=== PATIENT | female | born 1935 | race American Indian/Alaskan Native ===

== ENCOUNTER 2018-05-27 21:34 | Inpatient (IN) | payer MEDICARE ==
[2018-05-27 23:08] LABS: Basophils % (Auto) 0.5 % (0.0-1.8); Eosinophils # (Auto) 0.1 K/mm3 (0.0-0.4); Eosinophils % (Auto) 1.4 % (0.0-4.3); Hematocrit 35.5 % (30.3-42.9); Hemoglobin 12.2 gm/dl (10.1-14.3); Lymphocytes # (Auto) 2.8 K/mm3 (1.2-5.4); Lymphocytes % (Auto) 42.1 % (13.4-35.0); Mean Corpuscular HGB Conc 34 % (30-34); Mean Corpuscular Volume 94 fl (79-97); Monocytes # (Auto) 0.5 K/mm3 (0.0-0.8); Monocytes % (Auto) 7.2 % (0.0-7.3); Platelet Count 281 K/mm3 (140-440); Red Blood Count 3.78 M/mm3 (3.65-5.03); Red Cell Distribution Width 13.3 % (13.2-15.2)
--- NOTE | 2018-05-27 23:15 | Emergency Department Report ---
ED Altered Mental Status HPI - General Chief Complaint: Syncope Stated Complaint: SYNCOPE Time Seen by Provider: 05/27/18 22:06 Source: EMS Mode of arrival: Stretcher Limitations: No Limitations - History of Present Illness Initial Comments: 82-year-old female with history of diabetes, prior CVA with right-sided deficit and presents to ED with episode of altered mental status. Daughter told her son to get patient up out of the room so that she could eat dinner. Patient was found in her room lying on the floor by her grandson, unsure if she fell out of bed. Family states when they were attempting to help her get up, patient was combative, fighting with them, acting as if she didn't know who they were. Because patient was so combative, EMS was called. Prior to EMS arrival, they were able to get patient to eat a small amount of yams and fish stew. Patient returned to normal prior to EMS arrival. Family states this episode lasted for approximately 30 minutes. Patient is currently at her baseline, awake and alert and oriented. States she does not remember what happened. PCP: Dr Carolyn RICO Complaint: altered mental status, confusion -: This evening Severity: moderate Context: unknown Associated Symptoms: loss of appetite. denies: chest pain, cough, fever/chills, nausea/vomiting, shortness of breath - Related Data Home Medications Medication Instructions Recorded Confirmed Last Taken Clopidogrel Bisulfate [Plavix] 75 mg PO DAILY 06/28/13 05/27/18 05/27/18 09:00 Atenolol [Tenormin] 50 mg PO BID 05/27/18 05/27/18 05/27/18 20:00 Escitalopram 10 mg PO DAILY 05/27/18 05/27/18 05/27/18 09:00 Glimepiride [Amaryl] 4 mg PO DAILY 05/27/18 05/27/18 05/27/18 20:00 LORazepam 0.5 mg PO DAILY 05/27/18 05/27/18 05/27/18 21:00 NIFEdipine [Nifedipine ER] 60 mg PO DAILY 05/27/18 05/27/18 05/27/18 09:00 Previous Rx's Medication Instructions Recorded Last Taken Type Megestrol [Megace] 40 mg PO QDAY #30 tablet 07/01/13 05/27/18 20:00 Rx Simvastatin 20 mg PO QHS #30 tablet 07/01/13 05/27/18 20:00 Rx cycloSPORINE [Restasis 0.05%] 1 drop OU BID #1 droperette 07/01/13 05/26/18 21:00 Rx metFORMIN [Glucophage] 1,000 mg PO BID #60 tablet 07/01/13 05/27/18 20:00 Rx Allergies Allergy/AdvReac Type Severity Reaction Status Date / Time No Known Allergies Allergy Unverified 03/02/13 18:32 ED Review of Systems ROS: Stated complaint: SYNCOPE Other details as noted in HPI Comment: All other systems reviewed and negative Constitutional: denies: chills, fever Respiratory: denies: cough, shortness of breath Cardiovascular: denies: chest pain Gastrointestinal: denies: abdominal pain, vomiting, diarrhea Neurological: denies: headache ED Past Medical Hx - Past Medical History Previous Medical History?: Yes Hx Hypertension: Yes Hx CVA: Yes Hx Diabetes: Yes Additional medical history: HLD - Surgical History Hx Appendectomy: Yes Additional Surgical History: ectopic - Social History Smoking Status: Never Smoker Substance Use Type: None - Medications Home Medications: Home Medications Medication Instructions Recorded Confirmed Last Taken Type Clopidogrel Bisulfate [Plavix] 75 mg PO DAILY 06/28/13 05/27/18 05/27/18 09:00 History Megestrol [Megace] 40 mg PO QDAY #30 tablet 07/01/13 05/27/18 05/27/18 20:00 Rx Simvastatin 20 mg PO QHS #30 tablet 07/01/13 05/27/18 05/27/18 20:00 Rx cycloSPORINE [Restasis 0.05%] 1 drop OU BID #1 droperette 07/01/13 05/27/18 05/26/18 21:00 Rx metFORMIN [Glucophage] 1,000 mg PO BID #60 tablet 07/01/13 05/27/18 05/27/18 20:00 Rx Atenolol [Tenormin] 50 mg PO BID 05/27/18 05/27/18 05/27/18 20:00 History Escitalopram 10 mg PO DAILY 05/27/18 05/27/18 05/27/18 09:00 History Glimepiride [Amaryl] 4 mg PO DAILY 05/27/18 05/27/18 05/27/18 20:00 History LORazepam 0.5 mg PO DAILY 05/27/18 05/27/18 05/27/18 21:00 History NIFEdipine [Nifedipine ER] 60 mg PO DAILY 05/27/18 05/27/18 05/27/18 09:00 Histo ry ED Physical Exam - General Limitations: No Limitations General appearance: alert, in no apparent distress - Head Head exam: Present: atraumatic, normocephalic - Eye Eye exam: Present: normal appearance - ENT ENT exam: Present: mucous membranes moist - Neck Neck exam: Present: normal inspection - Respiratory Respiratory exam: Present: normal lung sounds bilaterally. Absent: respiratory distress - Cardiovascular Cardiovascular Exam: Present: regular rate, normal rhythm - GI/Abdominal GI/Abdominal exam: Present: soft. Absent: distended, tenderness - Extremities Exam Extremities exam: Present: normal inspection - Neurological Exam Neurological exam: Present: alert, oriented X3 - Psychiatric Psychiatric exam: Present: normal affect, normal mood - Skin Skin exam: Present: warm, dry, intact, normal color. Absent: rash - Assessment Assessment Interval: Baseline - Level of Consciousness 1a. Level of Consciousness: alert/keenly responsive - LOC Questions 1b. LOC Questions: answers both correctly - LOC Command 1c. LOC Commands: performs tasks correctly - Best Gaze 2. Best Gaze: normal - Visual 3. Visual: no visual loss - Facial Palsy 4. Facial Palsy: normal symmetrical movement - Motor Arm 5b. Motor Arm Right: drift 5a. Motor Arm Left: no drift - Motor Leg 6b. Motor Leg Right: drift 6a. Motor Leg Left: no drift - Limb Ataxia 7. Limb Ataxia: absent - Sensory 8. Sensory: normal - Best Language 9. Best Language: no aphasia - Dysarthria 10. Dysarthria: normal - Extinction and Inattention 11. Extinction/Inattention: no abnormality - Scoring Total Score: 2 Stroke Severity: Minor Stroke ED Course Vital Signs 05/27/18 05/27/18 05/27/18 21:42 23:11 23:16 Temperature 98 F Pulse Rate 75 77 72 Respiratory 20 18 Rate Blood Pressure 151/72 Blood Pressure 151/72 [Left] O2 Sat by Pulse 97 99 Oximetry 05/27/18 05/27/18 05/27/18 23:21 23:30 23:45 Temperature Pulse Rate 73 71 71 Respiratory 19 21 21 Rate Blood Pressure 150/77 152/75 Blood Pressure 154/82 [Left] O2 Sat by Pulse 99 97 98 Oximetry 05/28/18 05/28/18 05/28/18 00:00 00:15 00:30 Temperature Pulse Rate 74 75 74 Respiratory 20 21 15 Rate Blood Pressure 138/64 146/70 150/74 Blood Pressure [Left] O2 Sat by Pulse 96 98 99 Oximetry - Lab Data Result diagrams: 05/27/18 22:54 05/27/18 22:54 Lab Results 05/27/18 05/27/18 05/27/18 Range/Units 22:54 22:54 22:54 WBC 6.8 (4.5-11.0) K/mm3 RBC 3.78 (3.65-5.03) M/mm3 Hgb 12.2 (10.1-14.3) gm/dl Hct 35.5 (30.3-42.9) % MCV 94 (79-97) fl MCH 32 (28-32) pg MCHC 34 (30-34) % RDW 13.3 (13.2-15.2) % Plt Count 281 (140-440) K/mm3 Lymph % (Auto) 42.1 H (13.4-35.0) % [place] % (Auto) 7.2 (0.0-7.3) % Eos % (Auto) 1.4 (0.0-4.3) % Baso % (Auto) 0.5 (0.0-1.8) % Lymph # 2.8 (1.2-5.4) K/mm3 [place] # 0.5 (0.0-0.8) K/mm3 Eos # 0.1 (0.0-0.4) K/mm3 Baso # 0.0 (0.0-0.1) K/mm3 Seg Neutrophils % 48.8 (40.0-70.0) % Seg Neutrophils # 3.3 (1.8-7.7) K/mm3 PT 12.7 (12.2-14.9) Sec. INR 0.90 (0.87-1.13) APTT 20.0 L (24.2-36.6) Sec. Sodium (137-145) mmol/L Potassium (3.6-5.0) mmol/L Chloride (98-107) mmol/L Carbon Dioxide (22-30) mmol/L Anion Gap mmol/L BUN (7-17) mg/dL Creatinine (0.7-1.2) mg/dL Estimated GFR ml/min BUN/Creatinine Ratio % Glucose (65-100) mg/dL Calcium (8.4-10.2) mg/dL Troponin T < 0.010 (0.00-0.029) ng/mL Urine Color (Yellow) Urine Turbidity (Clear) Urine pH (5.0-7.0) Ur Specific [place] (1.003-1.030) Urine Protein (Negative) mg/dL Urine Glucose (UA) (Negative) mg/dL Urine Ketones (Negative) mg/dL Urine Blood (Negative) Urine Nitrite (Negative) Urine Bilirubin (Negative) Urine Urobilinogen (<2.0) mg/dL Ur Leukocyte Esterase (Negative) Urine WBC (Auto) (0.0-6.0) /HPF Urine RBC (Auto) (0.0-6.0) /HPF U Epithel Cells (Auto) (0-13.0) /HPF Urine Mucus /HPF 05/27/18 05/28/18 Range/Units 22:54 00:24 WBC (4.5-11.0) K/mm3 RBC (3.65-5.03) M/mm3 Hgb (10.1-14.3) gm/dl Hct (30.3-42.9) % MCV (79-97) fl MCH (28-32) pg MCHC (30-34) % RDW (13.2-15.2) % Plt Count (140-440) K/mm3 Lymph % (Auto) (13.4-35.0) % [place] % (Auto) (0.0-7.3) % Eos % (Auto) (0.0-4.3) % Baso % (Auto) (0.0-1.8) % Lymph # (1.2-5.4) K/mm3 [place] # (0.0-0.8) K/mm3 Eos # (0.0-0.4) K/mm3 Baso # (0.0-0.1) K/mm3 Seg Neutrophils % (40.0-70.0) % Seg Neutrophils # (1.8-7.7) K/mm3 PT (12.2-14.9) Sec. INR (0.87-1.13) APTT (24.2-36.6) Sec. Sodium 140 (137-145) mmol/L Potassium 3.7 (3.6-5.0) mmol/L Chloride 104.9 (98-107) mmol/L Carbon Dioxide 22 (22-30) mmol/L Anion Gap 17 mmol/L BUN 12 (7-17) mg/dL Creatinine 0.8 (0.7-1.2) mg/dL Estimated GFR > 60 ml/min BUN/Creatinine Ratio 15 % Glucose 250 H (65-100) mg/dL Calcium 8.6 (8.4-10.2) mg/dL Troponin T (0.00-0.029) ng/mL Urine Color Yellow (Yellow) Urine Turbidity Clear (Clear) Urine pH 5.0 (5.0-7.0) Ur Specific [place] 1.015 (1.003-1.030) Urine Protein 30 mg/dl (Negative) mg/dL Urine Glucose (UA) 150 (Negative) mg/dL Urine Ketones Neg (Negative) mg/dL Urine Blood Neg (Negative) Urine Nitrite Neg (Negative) Urine Bilirubin Neg (Negative) Urine Urobilinogen 2.0 (<2.0) mg/dL Ur Leukocyte Esterase Mod (Negative) Urine WBC (Auto) 1.0 (0.0-6.0) /HPF Urine RBC (Auto) 3.0 (0.0-6.0) /HPF U Epithel Cells (Auto) 4.0 (0-13.0) /HPF Urine Mucus Few /HPF - EKG Data -: EKG Interpreted by Sd EKG shows normal: sinus rhythm, axis, intervals, QRS complexes, ST-T waves Rate: normal Interpretation: no acute changes - Radiology Data Radiology results: report reviewed, image reviewed - Medical Decision Making 82-year-old female presents following brief episode of altered mental status. Hypoglycemia vs TIA. No documented low blood sugar, however, per family, patient's symptoms seemed to improve after they gave her yams and fish stew. Workup unremarkable, CT Head, CXR, EKG, labs normal. Will admit for observation. Spoke w/ Dr Al, hospitalist, for admission. - Differential Diagnosis hypoglycemia, TIA, infection Critical care attestation.: If time is entered above; I have spent that time in minutes in the direct care of this critically ill patient, excluding procedure time. ED Disposition Clinical Impression: Altered mental status Disposition: DC-09 OP ADMIT IP TO THIS HOSP Is pt being admited?: Yes Condition: Stable Referrals: LINDA ROSS MD [Referring] - 3-5 Days Time of Disposition: 01:31
--- NOTE | 2018-05-27 23:18 | XRay Report ---
PROCEDURE: PORTABLE CHEST TECHNIQUE: A portable AP chest radiograph was obtained at 05/27/2018 21:37 [employer]. CPT 50494 HISTORY: Chest pain COMPARISONS: None. FINDINGS: Heart: The heart is borderline enlarged. Mediastinum/Vessels: Normal. Lungs/Pleural space: There is suboptimal inspiration. There are no infiltrates. There is no pulmonar y effusion or contusion or pneumothorax.. Bony thorax: No acute osseous abnormality. Life support devices: None. IMPRESSION: No acute cardiopulmonary abnormality. This document is electronically signed by Familia Hermosillo MD., May 27 2018 11:15:37 PM ET
[2018-05-27 23:20] LABS: BUN/Creatinine Ratio 15; Blood Urea Nitrogen 12 mg/dL (7-17); Calcium 8.6 mg/dL (8.4-10.2); Hemolysis Index 29
[2018-05-27 23:23] LABS: INR 0.9 (0.87-1.13)
--- NOTE | 2018-05-27 23:48 | Cat Scan Report ---
PROCEDURE: CT HEAD/BRAIN WO CON TECHNIQUE: Computerized tomography of the head was performed without contrast material. HISTORY: Altered mental status COMPARISONS: None . FINDINGS: Brain: There is no evidence of intracranial hemorrhage. No parenchymal hemorrhage is seen. No mass lesions or mass effect is identified. No abnormal extra-axial fluid collections or masses are seen. Old lacunar infarct again visualized left thalamus. There is some decreased density seen in the periventricular white matter without mass effect. This i s fairly symmetric and does not exhibit any mass effect consistent with gliosis probably on the basis of microvascular disease or white matter changes of aging. Ventricles: The ventricles, sulcal pattern and fissures are prominent consistent with atrophy. Bone Windows: No evidence of fracture. Paranasal sinuses: Visualized portions are clear.. Mastoid air cells: Visualized portions are clear.. IMPRESSION: There is evidence of mild atrophy and moderate gliosis. This hasn't changed significantly. Old lacuna r infarct again visualized left thalamus. No acute intracranial abnormalities are visualized. If symp toms persist or worsen consider follow-up CT scan or MRI for further evaluation. This document is electronically signed by Richard Hooks MD., May 27 2018 11:45:39 PM ET
[2018-05-28 00:59] LABS: Bilirubin,Urine NEG (Negative); Blood,Urine NEG (Negative); Color,Urine Yellow (Yellow); Mucus,Urine FEW /HPF
[2018-05-28] MEDS ORDERED: D50W (25GM) Syringe IV PRN (02:38)
[2018-05-28] MEDS ORDERED: TYLENOL PO PRN (03:07)
[2018-05-28] MEDS ORDERED: ZOFRAN IV PRN (03:08)
--- NOTE | 2018-05-28 06:45 | History and Physical Report ---
CHIEF COMPLAINT: Change in mental status. Other complaint includes combativeness. HISTORY OF PRESENTING ILLNESS: The patient is an 82-year-old female with past history of cerebrovascular accident and right-sided weakness, who was found by the family on the floor. When the patient was approached, she was confused and combative behaving in an odd manner according to the daughter and EMS was called. Prior to EMS arriving, the patient was given some food. She ate and by the time the EMS got to the patient, the patient became alert, oriented x 3 and normal again and back to her baseline. There was no history of fever or chills. No history of diaphoresis. Also, there was no history of chest pain, nausea, vomiting, urinary incontinence, or notable seizure symptoms of jerking her arm and the patient was subsequently brought to the Emergency Room. Family said that the whole episode lasted about 30 minutes. PAST MEDICAL HISTORY: Pertinent for hypertension, cerebrovascular accident with right-sided weakness. The patient has also history of diabetes mellitus and hyperlipidemia. PAST SURGICAL HISTORY: Pertinent for appendectomy, ectopic . FAMILY HISTORY: Noncontributory. SOCIAL HISTORY: The patient lives with family. Does not smoke, does not drink alcohol, and does not use illicit drug. MEDICATIONS: The patient is on clopidogrel or Plavix 75 mg by mouth daily, megestrol 40 mg by mouth daily, simvastatin 20 mg by mouth every night, cyclosporine or Restasis eye drop one drop to both eyes twice daily, metformin 1000 mg by mouth twice daily, atenolol 50 mg by mouth twice daily, escitalopram 10 mg by mouth daily, Amaryl 4 mg by mouth daily, lorazepam 0.5 mg by mouth daily, nifedipine 60 mg by mouth daily. ALLERGIES: There are no known drug allergies. REVIEW OF SYSTEMS: CONSTITUTIONAL: There is no fever, no chills, no diaphoresis. HEENT: There is no headache or sore throat. CARDIOVASCULAR SYSTEM: There is no chest pain or orthopnea. RESPIRATORY SYSTEM: There is no shortness of breath or cough. GASTROINTESTINAL SYSTEM: There is no nausea, no vomiting. No abdominal pain, diarrhea, or constipation. NEUROLOGICAL SYSTEM: Altered mental status noted with confusion and agitation and combativeness. MUSCULOSKELETAL SYSTEM: There is no joint pain or swelling. DERMATOLOGICAL SYSTEM: There is no skin rash or itching. GENITOURINARY SYSTEM: There is no dysuria, hematuria, or flank pain. Rest of system review is normal. PHYSICAL EXAMINATION: GENERAL: At the time of exam, the patient was found to be alert, oriented x 3, and not in acute distress. VITAL SIGNS: At the initial time of presentation showed temperature of 98 degrees Fahrenheit, pulse of 75, respirations 20, blood pressure 151/72, O2 sat of 97% on room air. HEENT: Showed pupils to be equal, round, and reactive to light and accommodation. Extraocular muscles were intact. NECK: Supple with no JVD or carotid bruit. CARDIOVASCULAR SYSTEM: Showed normal first and second heart sounds with no gallops or murmur. RESPIRATORY SYSTEM: Showed good air entry on both sides of the lungs with no abnormal breath sounds. GASTROINTESTINAL SYSTEM: Showed abdomen to be full, soft, nontender with no organomegaly or rigidity. NEUROLOGICAL: Showed no new focal deficit except for old weakness on the right side of the body compared to the left. MUSCULOSKELETAL SYSTEM: Showed no joint swelling or tenderness. DERMATOLOGICAL SYSTEM: Showed no skin rash. GENITOURINARY SYSTEM: Showing no costovertebral angle tenderness. PERTINENT LABORATORY DATA AND IMAGING STUDIES: The patient had imaging studies involving CAT of the head with no contrast. This shows that there is evidence of mild atrophy and moderate gliosis. This has not changed significantly. There is finding of old lacunar infarct in the left thalamus and no acute intracranial abnormalities were visualized and the radiologist states if symptoms persist or worsen, to consider followup CT scan or MRI for further evaluation. Also, the patient had chest x-ray done and chest x-ray shows no acute cardiopulmonary lesion. LABORATORY DATA: The patient's lab results shows CBC with normal white count, normal hemoglobin, and normal hematocrit with CBC differential showing elevated lymphocyte count of 42.1%. Coagulation studies were unremarkable. The patient's chemistry was normal except for elevated blood glucose of 250. Troponin level came back normal. The patient's urinalysis shows yellow clear urine with negative nitrite, moderate urine leukocyte esterase, normal urine WBC, normal urine RBC with no bacteria seen. DIAGNOSES: 1. Altered mental status. 2. Transient ischemic attack. PLAN OF ACTION: 1. The patient will be admitted to telemetry as inpatient. 2. The patient will have MRI of the brain without contrast done this morning and will also have bilateral carotid Dopplers done this morning. 3. The patient will have 2D echo done this morning. We will also have Neurology consult with Dr. Bashir this morning. 4. The patient will be on aspirin 325 mg by mouth daily and will be on Tylenol 650 mg by mouth every 4 hours for fever and headache. 5. The patient will be on her home medications as shown in the medication reconciliation section. 6. The patient will be on Accu-Chek a.c. and at bedtime followed by sliding scale using low-dose sliding scale and Regular insulin coverage. 7. The patient will be on consistent carbohydrate, 2-g sodium diet. JOB# [id number] OCN/NTS
[2018-05-28] MEDS ORDERED: ESCITALOPRAM 10 MG PO SCH (10:00)
[2018-05-28] MEDS ORDERED: NON-FORMULARY (Cyclosporine [Restasis 0.05%] 1 DROP) OU SCH (10:00)
[2018-05-28] MEDS ORDERED: NON-FORMULARY (Nifedipine [Nifedipine Er] 60 MG) PO SCH (10:00)
[2018-05-28] MEDS ORDERED: LORAZEPAM 0.5 MG PO SCH (10:00)
--- NOTE | 2018-05-28 10:25 | Magnetic Resonance Report ---
MRI OF THE BRAIN WITHOUT CONTRAST: HISTORY: TIA PROCEDURE: Multiplanar, multisequence MR imaging of the brain without IV contrast was performed. FINDINGS: Moderate volume loss advanced nonspecific chronic white matter changes are identified. The remaining brain parenchyma is within normal limits for this patient's age. The sewell-white interface is well defined. No evidence for acute ischemia, hemorrhage or mass. Chronic 1 cm lacunar infarct in the left thalamus and chronic 5 mm infarct in the anterior right thalamus are noted. The midline structures are central. The basal cisterns are patent. Normal ventricular size. The orbital cavities and sella turcica demonstrate no abnormality. The visualized paranasal sinuses and mastoid air cells are well aerated. IMPRESSION: Volume loss. Advanced chronic white matter changes. Chronic lacunar infarcts as described. No acute intracranial process is identified.
[2018-05-28] MEDS: MEGACE PO SCH (10:50)
[2018-05-28] MEDS: PROCARDIA XL PO SCH (10:50)
[2018-05-28] MEDS: ATIVAN PO SCH (10:50)
[2018-05-28] MEDS: HumuLIN R SUB-Q SCH ×2 (10:50→21:37)
[2018-05-28] MEDS: TENORMIN PO SCH ×2 (10:50→21:36)
[2018-05-28] MEDS: LEXAPRO PO SCH (10:51)
[2018-05-28] MEDS: ASPIRIN PO SCH (10:51)
--- NOTE | 2018-05-28 12:47 | Vascular Lab Report ---
PROCEDURE: VL CAROTID DUPLEX BILAT TECHNIQUE: Duplex Doppler ultrasound of the common, internal and external carotid arteries and the v ertebral arteries was performed bilaterally. Jones scale imaging, velocity spectral waveform analysis, and color flow Doppler were employed. HISTORY: TIA COMPARISONS: None . Note: Measurement of carotid stenosis is based on flow velocity values that correlate with the [place] Citizen Symptomatic Carotid Endarterectomy Trial (NASCET) based stenosis criteria using the internal carotid artery diameter as the denominator for stenosis calculation. FINDINGS: RIGHT carotid artery: Velocities: ICA PSV: 45 cm/sec ICA End diastolic: 16 cm/sec CCA PSV: 141 cm/sec IC/CC ratio: 0.3 2 Plaque/color flow: Mild heterogeneous plaque without significant spectral broadening or abnormal col or flow . RIGHT vertebral artery: Antegrade systolic and diastolic flow LEFT carotid artery: Velocities: ICA PSV: 54 cm/sec ICA End diastolic: 19 cm/sec CCA PSV: 64 cm/sec IC/CC ratio: 0.84 Plaque/color flow: Mild heterogeneous plaque without significant spectral broadening or abnormal col or flow . LEFT vertebral artery: Antegrade systolic and diastolic flow IMPRESSION: 1. RIGHT carotid: No hemodynamically significant (less than 50 percent) internal carotid artery yobani nosis. 2. LEFT carotid: No hemodynamically significant (less than 50 percent) internal carotid artery sten osis. 3. Vertebral arteries: Bilaterally antegrade. This document is electronically signed by Mumtaz Yi MD., May 28 2018 12:45:37 PM ET
--- NOTE | 2018-05-28 12:59 | Progress Note ---
Subjective Date of service: 05/28/18 Interval history: spoke to family this represents either focal seizure or new TIA based on direct witnesses spoke to two people this more likely a seizure neuro exam is normal at present PMH of mild stroke but no seizures Objective - Vital Sign Vital Signs - 12hr 05/28/18 05/28/18 05/28/18 01:00 01:15 01:30 Temperature Pulse Rate 70 78 71 Respiratory 19 15 20 Rate Blood Pressure 164/89 158/85 158/84 O2 Sat by Pulse 97 98 96 Oximetry 05/28/18 05/28/18 05/28/18 01:45 02:00 02:15 Temperature Pulse Rate 81 73 74 Respiratory 22 19 19 Rate Blood Pressure 159/87 148/81 146/75 O2 Sat by Pulse 97 98 98 Oximetry 05/28/18 05/28/18 05/28/18 02:30 02:45 03:00 Temperature Pulse Rate 75 76 79 Respiratory 16 18 15 Rate Blood Pressure 142/81 142/78 151/81 O2 Sat by Pulse 95 97 Oximetry 05/28/18 05/28/18 05/28/18 03:15 03:30 03:45 Temperature Pulse Rate 76 75 80 Respiratory 18 17 20 Rate Blood Pressure 145/79 143/77 154/79 O2 Sat by Pulse 95 96 96 Oximetry 05/28/18 05/28/18 05/28/18 04:20 04:40 05:10 Temperature 98.6 F Pulse Rate 76 80 Respiratory 20 Rate Blood Pressure 167/83 O2 Sat by Pulse 98 98 Oximetry - Laboratory Findings CBC and BMP: 05/27/18 22:54 05/27/18 22:54 Abnormal Lab Findings: Abnormal Labs 05/27/18 05/27/18 05/27/18 22:54 22:54 22:54 Lymph % (Auto) 42.1 H APTT 20.0 L Glucose 250 H POC Glucose 05/28/18 12:06 Lymph % (Auto) APTT Glucose POC Glucose 159 H
--- NOTE | 2018-05-28 13:40 | Progress Note ---
Assessment and Plan Assessment and plan: ? Focal seizure. Await EEG results. MRI reveals advanced chronic white matter changes and chronic lacunar infarcts. No acute intracranial process. Echocardiogram reveals EF of 50-55%. No atrial septal defect demonstrated. Carotid Dopplers are negative. Encephalopathy. Resolved. Etiology secondary to above. History Interval history: No new issues overnight. Hospitalist Physical - Constitutional Vitals: Temp Pulse Resp BP Pulse Ox 98.6 F 80 20 167/83 98 05/28/18 04:20 05/28/18 04:40 05/28/18 04:20 05/28/18 04:20 05/28/18 05:10 General appearance: Present: no acute distress, well-nourished - EENT Eyes: Present: PERRL, EOM intact ENT: hearing intact, clear oral mucosa, dentition normal - Neck Neck: Present: supple, normal ROM - Respiratory Respiratory effort: normal Respiratory: bilateral: CTA - Cardiovascular Rhythm: regular Heart Sounds: Present: S1 & S2. Absent: gallop, rub - Extremities Extremities: no ischemia, No edema, Full ROM - Abdominal General gastrointestinal: soft, non-tender, non-distended, normal bowel sounds - Integumentary Integumentary: Present: clear, warm, dry - Neurologic Neurologic: CNII-XII intact, moves all extremities Results - Labs CBC & Chem 7: 05/27/18 22:54 05/27/18 22:54 Labs: Laboratory Last Values WBC 6.8 K/mm3 (4.5-11.0) 05/27/18 22:54 RBC 3.78 M/mm3 (3.65-5.03) 05/27/18 22:54 Hgb 12.2 gm/dl (10.1-14.3) 05/27/18 22:54 Hct 35.5 % (30.3-42.9) 05/27/18 22:54 MCV 94 fl (79-97) 05/27/18 22:54 MCH 32 pg (28-32) 05/27/18 22:54 MCHC 34 % (30-34) 05/27/18 22:54 RDW 13.3 % (13.2-15.2) 05/27/18 22:54 Plt Count 281 K/mm3 (140-440) 05/27/18 22:54 Lymph % (Auto) 42.1 % (13.4-35.0) H 05/27/18 22:54 [place] % (Auto) 7.2 % (0.0-7.3) 05/27/18 22:54 Eos % (Auto) 1.4 % (0.0-4.3) 05/27/18 22:54 Baso % (Auto) 0.5 % (0.0-1.8) 05/27/18 22:54 Lymph # 2.8 K/mm3 (1.2-5.4) 05/27/18 22:54 [place] # 0.5 K/mm3 (0.0-0.8) 05/27/18 22:54 Eos # 0.1 K/mm3 (0.0-0.4) 05/27/18 22:54 Baso # 0.0 K/mm3 (0.0-0.1) 05/27/18 22:54 Seg Neutrophils % 48.8 % (40.0-70.0) 05/27/18 22:54 Seg Neutrophils # 3.3 K/mm3 (1.8-7.7) 05/27/18 22:54 PT 12.7 Sec. (12.2-14.9) 05/27/18 22:54 INR 0.90 (0.87-1.13) 05/27/18 22:54 APTT 20.0 Sec. (24.2-36.6) L 05/27/18 22:54 Sodium 140 mmol/L (137-145) 05/27/18 22:54 Potassium 3.7 mmol/L (3.6-5.0) 05/27/18 22:54 Chloride 104.9 mmol/L (98-107) 05/27/18 22:54 Carbon Dioxide 22 mmol/L (22-30) 05/27/18 22:54 Anion Gap 17 mmol/L 05/27/18 22:54 BUN 12 mg/dL (7-17) 05/27/18 22:54 Creatinine 0.8 mg/dL (0.7-1.2) 05/27/18 22:54 Estimated GFR > 60 ml/min 05/27/18 22:54 BUN/Creatinine Ratio 15 % 05/27/18 22:54 Glucose 250 mg/dL (65-100) H 05/27/18 22:54 POC Glucose 159 (70-105) H 05/28/18 12:06 Calcium 8.6 mg/dL (8.4-10.2) 05/27/18 22:54 Troponin T < 0.010 ng/mL (0.00-0.029) 05/27/18 22:54 Urine Color Yellow (Yellow) 05/28/18 00:24 Urine Turbidity Clear (Clear) 05/28/18 00:24 Urine pH 5.0 (5.0-7.0) 05/28/18 00:24 Ur Specific [place] 1.015 (1.003-1.030) 05/28/18 00:24 Urine Protein 30 mg/dl mg/dL (Negative) 05/28/18 00:24 Urine Glucose (UA) 150 mg/dL (Negative) 05/28/18 00:24 Urine Ketones Neg mg/dL (Negative) 05/28/18 00:24 Urine Blood Neg (Negative) 05/28/18 00:24 Urine Nitrite Neg (Negative) 05/28/18 00:24 Urine Bilirubin Neg (Negative) 05/28/18 00:24 Urine Urobilinogen 2.0 mg/dL (<2.0) 05/28/18 00:24 Ur Leukocyte Esterase Mod (Negative) 05/28/18 00:24 Urine WBC (Auto) 1.0 /HPF (0.0-6.0) 05/28/18 00:24 Urine RBC (Auto) 3.0 /HPF (0.0-6.0) 05/28/18 00:24 U Epithel Cells (Auto) 4.0 /HPF (0-13.0) 05/28/18 00:24 Urine Mucus Few /HPF 05/28/18 00:24
[2018-05-28 14:02] LABS: Chol/HDL Ratio 2.96 %
[2018-05-28] MEDS: PRAVACHOL PO SCH (21:36)
[2018-05-28] MEDS ORDERED: NON-FORMULARY (Simvastatin [Simvastatin] 20 MG) PO SCH (22:00)
[2018-05-29] MEDS: HumuLIN R SUB-Q SCH ×5 (08:11→21:47)
[2018-05-29] MEDS: MEGACE PO SCH (09:42)
[2018-05-29] MEDS: ASPIRIN PO SCH (09:42)
[2018-05-29] MEDS: TENORMIN PO SCH ×2 (09:42→21:42)
[2018-05-29] MEDS: LEXAPRO PO SCH (09:42)
[2018-05-29] MEDS: PROCARDIA XL PO SCH (09:42)
[2018-05-29] MEDS: ATIVAN PO SCH (09:42)
--- NOTE | 2018-05-29 11:23 | Progress Note ---
Assessment and Plan Assessment and plan: ? Focal seizure versus TIA. Await EEG results. MRI reveals advanced chronic white matter changes and chronic lacunar infarcts. No acute intracranial process. Echocardiogram reveals EF of 50-55%. No atrial septal defect demonstrated. Carotid Dopplers are negative. Neurology following. Encephalopathy. Resolved. Etiology secondary to above. History Interval history: No new issues overnight. Hospitalist Physical - Constitutional Vitals: Temp Pulse Resp BP Pulse Ox 98.3 F 74 18 156/75 99 05/29/18 09:09 05/29/18 09:09 05/29/18 09:10 05/29/18 09:09 05/29/18 09:09 General appearance: Present: no acute distress, well-nourished - EENT Eyes: Present: PERRL, EOM intact ENT: hearing intact, clear oral mucosa, dentition normal - Neck Neck: Present: supple, normal ROM - Respiratory Respiratory effort: normal Respiratory: bilateral: CTA - Cardiovascular Rhythm: regular Heart Sounds: Present: S1 & S2. Absent: gallop, rub - Extremities Extremities: no ischemia, No edema, Full ROM - Abdominal General gastrointestinal: soft, non-tender, non-distended, normal bowel sounds - Integumentary Integumentary: Present: clear, warm, dry - Neurologic Neurologic: CNII-XII intact, moves all extremities Results - Labs CBC & Chem 7: 05/27/18 22:54 05/27/18 22:54 Labs: Laboratory Last Values WBC 6.8 K/mm3 (4.5-11.0) 05/27/18 22:54 RBC 3.78 M/mm3 (3.65-5.03) 05/27/18 22:54 Hgb 12.2 gm/dl (10.1-14.3) 05/27/18 22:54 Hct 35.5 % (30.3-42.9) 05/27/18 22:54 MCV 94 fl (79-97) 05/27/18 22:54 MCH 32 pg (28-32) 05/27/18 22:54 MCHC 34 % (30-34) 05/27/18 22:54 RDW 13.3 % (13.2-15.2) 05/27/18 22:54 Plt Count 281 K/mm3 (140-440) 05/27/18 22:54 Lymph % (Auto) 42.1 % (13.4-35.0) H 05/27/18 22:54 [place] % (Auto) 7.2 % (0.0-7.3) 05/27/18 22:54 Eos % (Auto) 1.4 % (0.0-4.3) 05/27/18 22:54 Baso % (Auto) 0.5 % (0.0-1.8) 05/27/18 22:54 Lymph # 2.8 K/mm3 (1.2-5.4) 05/27/18 22:54 [place] # 0.5 K/mm3 (0.0-0.8) 05/27/18 22:54 Eos # 0.1 K/mm3 (0.0-0.4) 05/27/18 22:54 Baso # 0.0 K/mm3 (0.0-0.1) 05/27/18 22:54 Seg Neutrophils % 48.8 % (40.0-70.0) 05/27/18 22:54 Seg Neutrophils # 3.3 K/mm3 (1.8-7.7) 05/27/18 22:54 PT 12.7 Sec. (12.2-14.9) 05/27/18 22:54 INR 0.90 (0.87-1.13) 05/27/18 22:54 APTT 20.0 Sec. (24.2-36.6) L 05/27/18 22:54 Sodium 140 mmol/L (137-145) 05/27/18 22:54 Potassium 3.7 mmol/L (3.6-5.0) 05/27/18 22:54 Chloride 104.9 mmol/L (98-107) 05/27/18 22:54 Carbon Dioxide 22 mmol/L (22-30) 05/27/18 22:54 Anion Gap 17 mmol/L 05/27/18 22:54 BUN 12 mg/dL (7-17) 05/27/18 22:54 Creatinine 0.8 mg/dL (0.7-1.2) 05/27/18 22:54 Estimated GFR > 60 ml/min 05/27/18 22:54 BUN/Creatinine Ratio 15 % 05/27/18 22:54 Glucose 250 mg/dL (65-100) H 05/27/18 22:54 POC Glucose 121 (70-105) H 05/29/18 07:42 Calcium 8.6 mg/dL (8.4-10.2) 05/27/18 22:54 Troponin T < 0.010 ng/mL (0.00-0.029) 05/27/18 22:54 Triglycerides 74 mg/dL (2-149) 05/28/18 13:04 Cholesterol 98 mg/dL (50-199) 05/28/18 13:04 LDL Cholesterol Direct 68 mg/dL (50-130) 05/28/18 13:04 HDL Cholesterol 33 mg/dL (40-59) L 05/28/18 13:04 Cholesterol/HDL Ratio 2.96 % 05/28/18 13:04 Urine Color Yellow (Yellow) 05/28/18 00:24 Urine Turbidity Clear (Clear) 05/28/18 00:24 Urine pH 5.0 (5.0-7.0) 05/28/18 00:24 Ur Specific [place] 1.015 (1.003-1.030) 05/28/18 00:24 Urine Protein 30 mg/dl mg/dL (Negative) 05/28/18 00:24 Urine Glucose (UA) 150 mg/dL (Negative) 05/28/18 00:24 Urine Ketones Neg mg/dL (Negative) 05/28/18 00:24 Urine Blood Neg (Negative) 05/28/18 00:24 Urine Nitrite Neg (Negative) 05/28/18 00:24 Urine Bilirubin Neg (Negative) 05/28/18 00:24 Urine Urobilinogen 2.0 mg/dL (<2.0) 05/28/18 00:24 Ur Leukocyte Esterase Mod (Negative) 05/28/18 00:24 Urine WBC (Auto) 1.0 /HPF (0.0-6.0) 05/28/18 00:24 Urine RBC (Auto) 3.0 /HPF (0.0-6.0) 05/28/18 00:24 U Epithel Cells (Auto) 4.0 /HPF (0-13.0) 05/28/18 00:24 Urine Mucus Few /HPF 05/28/18 00:24
--- NOTE | 2018-05-29 13:48 | Progress Note ---
Subjective Date of service: 05/29/18 Interval history: wentvover the MRI and it shows only chronic strokes nothing acute believe we should treat with keppra as episode was likely seizure recommend seizure therapy Objective - Vital Sign Vital Signs - 12hr 05/29/18 05/29/18 05/29/18 03:09 03:44 09:09 Temperature 98.2 F 98.3 F Pulse Rate 75 74 74 Respiratory 20 18 Rate Blood Pressure 146/64 156/75 O2 Sat by Pulse 100 99 Oximetry 05/29/18 05/29/18 09:10 12:01 Temperature 98.3 F Pulse Rate Respiratory 18 Rate Blood Pressure O2 Sat by Pulse Oximetry - Laboratory Findings CBC and BMP: 05/27/18 22:54 05/27/18 22:54 Abnormal Lab Findings: Abnormal Labs 05/27/18 05/27/18 05/27/18 22:54 22:54 22:54 Lymph % (Auto) 42.1 H APTT 20.0 L Glucose 250 H POC Glucose HDL Cholesterol 05/28/18 05/28/18 05/28/18 12:06 13:04 21:01 Lymph % (Auto) APTT Glucose POC Glucose 159 H 172 H HDL Cholesterol 33 L 05/29/18 05/29/18 07:42 12:04 Lymph % (Auto) APTT Glucose POC Glucose 121 H 186 H HDL Cholesterol
[2018-05-29] MEDS: PRAVACHOL PO SCH (21:42)
[2018-05-30] MEDS: HumuLIN R SUB-Q SCH ×4 (08:47→21:16)
[2018-05-30] MEDS: ATIVAN PO SCH (09:17)
[2018-05-30] MEDS: LEXAPRO PO SCH (09:17)
[2018-05-30] MEDS: TENORMIN PO SCH ×2 (09:18→21:16)
[2018-05-30] MEDS: ASPIRIN PO SCH (09:18)
[2018-05-30] MEDS: PROCARDIA XL PO SCH (09:18)
[2018-05-30] MEDS: MEGACE PO SCH (09:18)
--- NOTE | 2018-05-30 11:21 | Progress Note ---
Assessment and Plan Assessment and plan: ? Focal seizure versus TIA. Await EEG results. MRI reveals advanced chronic white matter changes and chronic lacunar infarcts. No acute intracranial process. Echocardiogram reveals EF of 50-55%. No atrial septal defect demonstrated. Carotid Dopplers are negative. Neurology following. Encephalopathy. Resolved. Etiology secondary to above. History Interval history: No new issues overnight. Hospitalist Physical - Constitutional Vitals: Temp Pulse Resp BP Pulse Ox 98.4 F 10 L 18 154/82 99 05/30/18 07:55 05/30/18 09:18 05/30/18 07:55 05/30/18 07:55 05/30/18 04:45 General appearance: Present: no acute distress, well-nourished - EENT Eyes: Present: PERRL, EOM intact ENT: hearing intact, clear oral mucosa, dentition normal - Neck Neck: Present: supple, normal ROM - Respiratory Respiratory effort: normal Respiratory: bilateral: CTA - Cardiovascular Rhythm: regular Heart Sounds: Present: S1 & S2. Absent: gallop, rub - Extremities Extremities: no ischemia, No edema, Full ROM - Abdominal General gastrointestinal: soft, non-tender, non-distended, normal bowel sounds - Integumentary Integumentary: Present: clear, warm, dry - Neurologic Neurologic: CNII-XII intact, moves all extremities Results - Labs CBC & Chem 7: 05/27/18 22:54 05/27/18 22:54 Labs: Laboratory Last Values WBC 6.8 K/mm3 (4.5-11.0) 05/27/18 22:54 RBC 3.78 M/mm3 (3.65-5.03) 05/27/18 22:54 Hgb 12.2 gm/dl (10.1-14.3) 05/27/18 22:54 Hct 35.5 % (30.3-42.9) 05/27/18 22:54 MCV 94 fl (79-97) 05/27/18 22:54 MCH 32 pg (28-32) 05/27/18 22:54 MCHC 34 % (30-34) 05/27/18 22:54 RDW 13.3 % (13.2-15.2) 05/27/18 22:54 Plt Count 281 K/mm3 (140-440) 05/27/18 22:54 Lymph % (Auto) 42.1 % (13.4-35.0) H 05/27/18 22:54 [place] % (Auto) 7.2 % (0.0-7.3) 05/27/18 22:54 Eos % (Auto) 1.4 % (0.0-4.3) 05/27/18 22:54 Baso % (Auto) 0.5 % (0.0-1.8) 05/27/18 22:54 Lymph # 2.8 K/mm3 (1.2-5.4) 05/27/18 22:54 [place] # 0.5 K/mm3 (0.0-0.8) 05/27/18 22:54 Eos # 0.1 K/mm3 (0.0-0.4) 05/27/18 22:54 Baso # 0.0 K/mm3 (0.0-0.1) 05/27/18 22:54 Seg Neutrophils % 48.8 % (40.0-70.0) 05/27/18 22:54 Seg Neutrophils # 3.3 K/mm3 (1.8-7.7) 05/27/18 22:54 PT 12.7 Sec. (12.2-14.9) 05/27/18 22:54 INR 0.90 (0.87-1.13) 05/27/18 22:54 APTT 20.0 Sec. (24.2-36.6) L 05/27/18 22:54 Sodium 140 mmol/L (137-145) 05/27/18 22:54 Potassium 3.7 mmol/L (3.6-5.0) 05/27/18 22:54 Chloride 104.9 mmol/L (98-107) 05/27/18 22:54 Carbon Dioxide 22 mmol/L (22-30) 05/27/18 22:54 Anion Gap 17 mmol/L 05/27/18 22:54 BUN 12 mg/dL (7-17) 05/27/18 22:54 Creatinine 0.8 mg/dL (0.7-1.2) 05/27/18 22:54 Estimated GFR > 60 ml/min 05/27/18 22:54 BUN/Creatinine Ratio 15 % 05/27/18 22:54 Glucose 250 mg/dL (65-100) H 05/27/18 22:54 POC Glucose 170 (70-105) H 05/30/18 07:28 Calcium 8.6 mg/dL (8.4-10.2) 05/27/18 22:54 Troponin T < 0.010 ng/mL (0.00-0.029) 05/27/18 22:54 Triglycerides 74 mg/dL (2-149) 05/28/18 13:04 Cholesterol 98 mg/dL (50-199) 05/28/18 13:04 LDL Cholesterol Direct 68 mg/dL (50-130) 05/28/18 13:04 HDL Cholesterol 33 mg/dL (40-59) L 05/28/18 13:04 Cholesterol/HDL Ratio 2.96 % 05/28/18 13:04 Urine Color Yellow (Yellow) 05/28/18 00:24 Urine Turbidity Clear (Clear) 05/28/18 00:24 Urine pH 5.0 (5.0-7.0) 05/28/18 00:24 Ur Specific [place] 1.015 (1.003-1.030) 05/28/18 00:24 Urine Protein 30 mg/dl mg/dL (Negative) 05/28/18 00:24 Urine Glucose (UA) 150 mg/dL (Negative) 05/28/18 00:24 Urine Ketones Neg mg/dL (Negative) 05/28/18 00:24 Urine Blood Neg (Negative) 05/28/18 00:24 Urine Nitrite Neg (Negative) 05/28/18 00:24 Urine Bilirubin Neg (Negative) 05/28/18 00:24 Urine Urobilinogen 2.0 mg/dL (<2.0) 05/28/18 00:24 Ur Leukocyte Esterase Mod (Negative) 05/28/18 00:24 Urine WBC (Auto) 1.0 /HPF (0.0-6.0) 05/28/18 00:24 Urine RBC (Auto) 3.0 /HPF (0.0-6.0) 05/28/18 00:24 U Epithel Cells (Auto) 4.0 /HPF (0-13.0) 05/28/18 00:24 Urine Mucus Few /HPF 05/28/18 00:24
[2018-05-30] MEDS: PRAVACHOL PO SCH (21:16)
--- NOTE | 2018-05-31 07:17 | Discharge Summary ---
Providers - Providers Date of Admission: 05/28/18 02:32 Date of discharge: 05/31/18 Attending physician: GEOVANNY ZAZUETA 05/28/18 06:00 Consult to Physician [CONS] Routine Comment: Consulting Provider: JENI JON Physician Instructions: Reason For Exam: TIA Primary care physician: HIRAM MANE Hospitalization Reason for admission: syncope, TIA Condition: Stable Hospital course: 82-year-old female with history of diabetes, prior CVA with right-sided deficit and presented to ED with episode of altered mental status. Daughter told her son to get patient up out of the room so that she could eat dinner. Patient was found in her room lying on the floor by her grandson, unsure if she fell out of bed. Family stated when they were attempting to help her get up, patient was combative, fighting with them, acting as if she didn't know who they were. Because patient was so combative, EMS was called. Prior to EMS arrival, they were able to get patient to eat a small amount of yams and fish stew. Patient returned to normal prior to EMS arrival. Family stated this episode lasted for approximately 30 minutes. The patient was admitted with diagnosis of altered mentation and TIA. The patient underwent CVA protocol with echocardiogram, MRI and carotid Doppler studies. Echocardiogram revealed left ventricular chamber size normal with EF of 55% and abnormal left ventricular diastolic filling consistent with impaired relaxation. No atrial septal defect demonstrated by saline contrast. MRI brain revealed advanced chronic white matter changes with chronic lacunar infarcts but no acute intracranial process. Carotid Dopplers showed no abnormalities. There was no evidence of CVA. Neurology felt that the episode represented either focal seizure or new TIA. Patient was treated empirically with Keppra initially. EEG revealed no seizure activity. Therefore, Keppra was discontinued. Patient will be discharged with secondary stroke prevention of aspirin and anti-lipids. Dedicated discharge time 32 minutes. 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: Chronic (5) Type II diabetes mellitus Status: Chronic Core Measure Documentation - Palliative Care Palliative Care/ Comfort Measures: Not Applicable - Core Measures Any of the following diagnoses?: stroke - Stroke Discharge Requirements Statin for LDL = or >70 mg/dl on DC: Yes Anticoag for atrial fib/atrial flutter: Not Applicable Antithrombotic for ischemic stroke: Yes Exam - Constitutional Vitals: Temp Pulse Resp BP Pulse Ox 99.2 F 78 20 136/62 96 05/31/18 00:08 05/31/18 00:08 05/31/18 00:08 05/31/18 00:08 05/31/18 00:08 General appearance: Present: no acute distress, well-nourished - EENT Eyes: Present: PERRL ENT: hearing intact, clear oral mucosa - Neck Neck: Present: supple, normal ROM - Respiratory Respiratory effort: normal Respiratory: bilateral: CTA - Cardiovascular Heart Sounds: Present: S1 & S2. Absent: rub, click - Extremities Extremities: pulses symmetrical, No edema Peripheral Pulses: within normal limits - Abdominal General gastrointestinal: Present: soft, non-tender, non-distended, normal bowel sounds Female genitourinary: Present: normal - Integumentary Integumentary: Present: clear, warm, dry - Musculoskeletal Musculoskeletal: gait normal, strength equal bilaterally - Psychiatric Psychiatric: appropriate mood/affect, intact judgment & insight - Neurologic Neurologic: CNII-XII intact, moves all extremities Plan Activity: advance as tolerated Weight Bearing Status: Weight Bear as Tolerated Diet: low fat, low cholesterol, low salt, diabetic Follow up with: JUAN RAMON [facility] MD MALIK [Referring] - 3-5 Days JENI JON MD [Staff Physician] - 7 Days Prescriptions: Aspirin [Aspirin TAB] 325 mg PO QDAY #30 tablet Escitalopram 10 mg PO DAILY #30 NIFEdipine [Nifedipine ER] 60 mg PO DAILY #30 tablet.er Pravastatin [Pravachol] 40 mg PO QHS #30 tablet cycloSPORINE [Restasis 0.05%] 1 drop OU BID #1 droperette Atenolol [Tenormin] 50 mg PO BID #60 tablet
[2018-05-31] MEDS: HumuLIN R SUB-Q SCH ×3 (07:30→17:08)
[2018-05-31] MEDS: ASPIRIN PO SCH (11:40)
[2018-05-31] MEDS: PROCARDIA XL PO SCH (11:40)
[2018-05-31] MEDS: LEXAPRO PO SCH (11:40)
[2018-05-31] MEDS: ATIVAN PO SCH (11:40)
[2018-05-31] MEDS: MEGACE PO SCH (11:42)
[2018-05-31] MEDS: TENORMIN PO SCH (11:42)
[2018-05-31 16:55] VITALS: BP 154/86
== END 2018-05-31 17:35 | disposition home or self-care (01) | DRG 69 ==
LOC: ED 21:34 → 4A 05-28 02:32
PROVIDERS: ADMIT Internal Medicine; ATTEND Hospitalist
DX: G45.9 Transient cerebral ischemic attack, unspecified (principal); I69.351 Hemiplegia and hemiparesis following cerebral infarction affecting right dominant side; G93.40 Encephalopathy, unspecified; E11.9 Type 2 diabetes mellitus without complications; Z90.49 Acquired absence of other specified parts of digestive tract; Z79.84 Long term (current) use of oral hypoglycemic drugs
CPT/HCPCS: 36415; 70450; 70551; 71045; 80048; 80061; 81001; 82962; 84484; 85025; 85610; 85730; 93005; 93010; 93306; 93880; 95819; G0378; A9270-GY; J1815

== ENCOUNTER 2020-01-14 07:58 | Emergency (ER) | payer MEDICARE ==
[2020-01-14] MEDS ORDERED: HYDROcodone/ACETAMINOPHEN 5-325 MG TAB PO ONE (11:18)
--- NOTE | 2020-01-14 11:18 | Emergency Department Report ---
ED Back Pain/Injury HPI - General Chief Complaint: Extremity Problem,Nontraumatic Stated Complaint: LT HIP PAIN Time Seen by Provider: 01/14/20 10:56 Source: patient Limitations: No Limitations - History of Present Illness Initial Comments: This is an 84-year-old female with history of diabetes, CVA, hyperlipidemia who presents with lower back pain left hip pain since Sunday for the past 2 days. Patient walks with a cane. Patient has been unable to weight-bear or walk. Sylvie avitia explained that she was unable to even place her foot down without discomfort. There were no witnessed falls. Daughter proposes that the only potential trauma would be a fall in the middle of the night. Patient denies fall or direct trauma. Patient mostly points to her lower back as the area of pain location of pain. No previous history of back or hip pain. Pain mildly relieved with ibuprofen. Daughter also tried massage and heat therapy with minimal relief. Daughter describes the pain as sharp. PCP Dr. Carolyn RICO Complaint: back pain -: Gradual, days(s) (2) Similar Symptoms Previously: No Place: home Radiation: left leg Severity: severe Quality: sharp Consistency: constant Improves With: other (Rest ibuprofen) Worsens With: movement, walking Context: unknown Associated Symptoms: denies other symptoms - Related Data Home Medications Medication Instructions Recorded Confirmed Last Taken Clopidogrel Bisulfate [Plavix] 75 mg PO DAILY 06/28/13 05/27/18 05/27/18 09:00 Glimepiride [Amaryl] 4 mg PO DAILY 05/27/18 05/27/18 05/27/18 20:00 LORazepam 0.5 mg PO DAILY 05/27/18 05/27/18 05/27/18 21:00 Previous Rx's Medication Instructions Recorded Last Taken Type megestroL [Megestrol] 40 mg PO QDAY #30 tablet 07/01/13 05/27/18 20:00 Rx metFORMIN [Glucophage] 1,000 mg PO BID #60 tablet 07/01/13 05/27/18 20:00 Rx Aspirin 325 mg PO QDAY #30 tablet 05/31/18 Unknown Rx Escitalopram 10 mg PO DAILY #30 05/31/18 Unknown Rx NIFEdipine [Nifedipine ER] 60 mg PO DAILY #30 tablet.er 05/31/18 Unknown Rx Pravastatin [Pravachol] 40 mg PO QHS #30 tablet 05/31/18 Unknown Rx atenoloL [Tenormin] 50 mg PO BID #60 tablet 05/31/18 Unknown Rx cycloSPORINE [Restasis 0.05%] 1 drop OU BID #1 droperette 05/31/18 Unknown Rx HYDROcodone/APAP 5-325 [[place] 1 each PO Q6HR PRN #15 tablet 01/14/20 Unknown Rx 5/325] Allergies Allergy/AdvReac Type Severity Reaction Status Date / Time No Known Allergies Allergy Unverified 03/02/13 18:32 ED Review of Systems ROS: Stated complaint: LT HIP PAIN Other details as noted in HPI Comment: All other systems reviewed and negative Constitutional: denies: fever, malaise Respiratory: denies: cough, shortness of breath Cardiovascular: denies: chest pain Gastrointestinal: denies: abdominal pain, nausea, vomiting Neurological: headache ED Past Medical Hx - Past Medical History Previous Medical History?: Yes Hx Hypertension: Yes Hx CVA: Yes Hx Diabetes: Yes Additional medical history: HLD - Surgical History Past Surgical History?: Yes Hx Appendectomy: Yes Additional Surgical History: ectopic - Social History Smoking Status: Unknown if ever smoked - Medications Home Medications: Home Medications Medication Instructions Recorded Confirmed Last Taken Type Clopidogrel Bisulfate [Plavix] 75 mg PO DAILY 06/28/13 05/27/18 05/27/18 09:00 History megestroL [Megestrol] 40 mg PO QDAY #30 tablet 07/01/13 05/27/18 05/27/18 20:00 Rx metFORMIN [Glucophage] 1,000 mg PO BID #60 tablet 07/01/13 05/27/18 05/27/18 20:00 Rx Glimepiride [Amaryl] 4 mg PO DAILY 05/27/18 05/27/18 05/27/18 20:00 History LORazepam 0.5 mg PO DAILY 05/27/18 05/27/18 05/27/18 21:00 History Aspirin 325 mg PO QDAY #30 tablet 05/31/18 Unknown Rx Escitalopram 10 mg PO DAILY #30 05/31/18 Unknown Rx NIFEdipine [Nifedipine ER] 60 mg PO DAILY #30 tablet.er 05/31/18 Unknown Rx Pravastatin [Pravachol] 40 mg PO QHS #30 tablet 05/31/18 Unknown Rx atenoloL [Tenormin] 50 mg PO BID #60 tablet 05/31/18 Unknown Rx cycloSPORINE [Restasis 0.05%] 1 drop OU BID #1 droperette 05/31/18 Unknown Rx HYDROcodone/APAP 5-325 [[place] 1 each PO Q6HR PRN #15 tablet 01/14/20 Unknown Rx 5/325] ED Physical Exam - General Limitations: No Limitations General appearance: alert, in no apparent distress - Head Head exam: Present: atraumatic, normocephalic - Eye Eye exam: Present: normal appearance - ENT ENT exam: Present: mucous membranes moist - Neck Neck exam: Present: normal inspection, full ROM - Respiratory Respiratory exam: Present: normal lung sounds bilaterally. Absent: respiratory distress, wheezes, rales, rhonchi - Cardiovascular Cardiovascular Exam: Present: regular rate, normal rhythm, normal heart sounds. Absent: systolic murmur, diastolic murmur, rubs, gallop - GI/Abdominal GI/Abdominal exam: Present: soft, normal bowel sounds. Absent: distended, tenderness, guarding, rebound - Extremities Exam Extremities exam: Present: normal inspection - Expanded Lower Extremity Exam Left Hip exam: Present: normal inspection, full ROM. Absent: tenderness, swelling Upper Leg exam: Present: normal inspection, full ROM. Absent: tenderness, swelling Knee exam: Present: normal inspection, full ROM. Absent: tenderness, swelling Lower Leg exam: Present: normal inspection, full ROM Ankle exam: Present: normal inspection, full ROM Foot/Toe exam: Present: normal inspection, full ROM Neuro vascular tendon exam: Present: no vascular compromise - Back Exam Back exam: Present: normal inspection, full ROM. Absent: tenderness, CVA tenderness (R), CVA tenderness (L), muscle spasm, paraspinal tenderness, vertebral tenderness, rash noted - Neurological Exam Neurological exam: Present: alert, oriented X3 - Psychiatric Psychiatric exam: Present: depressed, flat affect - Skin Skin exam: Present: warm, dry, intact, normal color. Absent: rash ED Course Vital Signs 01/14/20 01/14/20 01/14/20 08:09 09:30 09:46 Temperature 98.3 F Pulse Rate 77 73 71 Respiratory 16 18 16 Rate Blood Pressure 185/96 185/96 Blood Pressure 189/95 [Right] O2 Sat by Pulse 97 98 99 Oximetry 10/01/14/20 01/14/20 09:51 09:58 10:00 Temperature Pulse Rate 88 72 Respiratory 16 16 16 Rate Blood Pressure 180/110 177/90 Blood Pressure [Right] O2 Sat by Pulse 96 95 97 Oximetry 01/14/20 01/14/20 01/14/20 10:16 10:30 10:46 Temperature Pulse Rate 72 72 70 Respiratory 15 17 18 Rate Blood Pressure 177/90 177/90 177/90 Blood Pressure [Right] O2 Sat by Pulse 98 98 98 Oximetry 01/14/20 01/14/20 01/14/20 11:00 11:16 11:30 Temperature Pulse Rate 71 68 72 Respiratory 16 18 16 Rate Blood Pressure 177/96 177/96 177/96 Blood Pressure [Right] O2 Sat by Pulse 98 97 96 Oximetry 01/14/20 01/14/20 11:33 13:30 Temperature Pulse Rate 71 Respiratory 16 16 Rate Blood Pressure 192/99 Blood Pressure [Right] O2 Sat by Pulse 96 Oximetry ED Medical Decision Making - Lab Data Result diagrams: 01/14/20 11:38 01/14/20 11:38 - Radiology Data Radiology results: report reviewed CT ABDOMEN AND PELVIS WITH CONTRAST INDICATION / CLINICAL INFORMATION: severe back pain elderly. TECHNIQUE: Axial CT images were obtained through the abdomen and pelvis after 100 cc Omnipaque 300 milligrams percent IV contrast. All CT scans at this location are performed using CT dose reduction for ALARA by means of automated exposure control. COMPARISON: None available. FINDINGS: LOWER CHEST: No significant abnormality. LIVER: No significant abnormality. GALLBLADDER: Previous costectomy BILE DUCTS: No significant abnormality. PANCREAS: No significant abnormality. SPLEEN: No significant abnormality. ADRENALS: No significant abnormality. RIGHT KIDNEY and URETER: No significant abnormality. LEFT KIDNEY and URETER: No significant abnormality. STOMACH and SMALL BOWEL: No significant abnormality. COLON: No significant abnormality. PERITONEUM: Small ventral wall defect No free fluid or free air. No fluid collection. LYMPH NODES: No significant adenopathy. AORTA and ARTERIES: Atherosclerotic calcified plaque present abdominal aorta and iliac arteries IVC and VEINS: No significant abnormality. URINARY BLADDER: No significant abnormality. REPRODUCTIVE ORGANS: Several calcified uterine fibroids are present ADDITIONAL FINDINGS: None. SKELETAL SYSTEM: Severe degenerative changes lumbar spine IMPRESSION: 1. Uterine fibroids 2. No acute abnormality identified LUMBAR SPINE 3 VIEWS INDICATION / CLINICAL INFORMATION: elderly severe back pain. COMPARISON: None available. FINDINGS: Moderate diffuse degenerative change throughout the lumbar spine with mild narrowing of several disc spaces and mild anterolisthesis of L4 on L5. No other significant skeletal abnormality LEFT HIP 2 VIEWS INDICATION / CLINICAL INFORMATION: elderly severe hip pain. COMPARISON: None available. FINDINGS: Mild degenerative change. No other significant skeletal abnormality - Medical Decision Making After extensive evaluation to rule out life-threatening condition and to rule out obstruction such as renal colic or aortic pathology such as aneurysm or dissection, back pain likely due to degenerative disc disease. I have had extensive conversation with daughter. Plan of care: pain control until she is evaluated by her PCP. Prescribed [place]. Critical care attestation.: If time is entered above; I have spent that time in minutes in the direct care of this critically ill patient, excluding procedure time. ED Disposition Clinical Impression: Degenerative disc disease, lumbar, Back pain Disposition: TO HOME OR SELFCARE Is pt being admited?: No Does the pt Need Aspirin: No Condition: Stable Instructions: Degenerative Disc Disease (ED) Prescriptions: HYDROcodone/APAP 5-325 [[place] 5/325] 1 each PO Q6HR PRN #15 tablet PRN Reason: Pain Referrals: HIRAM MANE MD [Staff Physician] - 3-5 Days
[2020-01-14] MEDS ORDERED: DEXTROSE 50% IN WATER (25GM) 50 ML SYRINGE IV ONE (11:38)
[2020-01-14 12:18] LABS: Basophils % (Auto) 0.4 % (0.0-1.8); Eosinophils # (Auto) 0.1 K/mm3 (0.0-0.4); Hematocrit 40.5 % (30.3-42.9); Hemoglobin 13.4 gm/dl (10.1-14.3); Lymphocytes # (Auto) 3.5 K/mm3 (1.2-5.4); Lymphocytes % (Auto) 42.2 % (13.4-35.0); Mean Corpuscular HGB Conc 33 % (30-34); Mean Corpuscular Volume 95 fl (79-97); Monocytes # (Auto) 0.6 K/mm3 (0.0-0.8); Monocytes % (Auto) 6.9 % (0.0-7.3); Platelet Count 281 K/mm3 (140-440); Red Blood Count 4.26 M/mm3 (3.65-5.03); Red Cell Distribution Width 13.4 % (13.2-15.2)
[2020-01-14 12:27] LABS: Alanine Aminotransferase 17 units/L (7-56); Albumin 3.9 g/dL (3.9-5); BUN/Creatinine Ratio 21; Blood Urea Nitrogen 19 mg/dL (7-17); Calcium 9.6 mg/dL (8.4-10.2); Hemolysis Index 6
[2020-01-14 12:47] LABS: Bilirubin,Direct < 0.2 mg/dL (0-0.2)
--- NOTE | 2020-01-14 12:49 | XRay Report ---
LEFT HIP 2 VIEWS INDICATION / CLINICAL INFORMATION: elderly severe hip pain. COMPARISON: None available. FINDINGS: Mild degenerative change. No other significant skeletal abnormality Signer Name: Ishaan Dupree MD FACChasidy Signed: 01/14/2020 12:45 PM Workstation Name: [id number]
--- NOTE | 2020-01-14 12:53 | XRay Report ---
LUMBAR SPINE 3 VIEWS INDICATION / CLINICAL INFORMATION: elderly severe back pain. COMPARISON: None available. FINDINGS: Moderate diffuse degenerative change throughout the lumbar spine with mild narrowing of several disc spaces and mild anterolisthesis of L4 on L5. No other significant skeletal abnormality Signer Name: Ishaan Dupree MD FACChasidy Signed: 01/14/2020 12:48 PM Workstation Name: [id number]
--- NOTE | 2020-01-14 13:27 | Cat Scan Report ---
CT ABDOMEN AND PELVIS WITH CONTRAST INDICATION / CLINICAL INFORMATION: severe back pain elderly. TECHNIQUE: Axial CT images were obtained through the abdomen and pelvis after 100 cc Omnipaque 300 milligrams pe rcent IV contrast. All CT scans at this location are performed using CT dose reduction for ALARA by means of automated exposure control. COMPARISON: None available. FINDINGS: LOWER CHEST: No significant abnormality. LIVER: No significant abnormality. GALLBLADDER: Previous costectomy BILE DUCTS: No significant abnormality. PANCREAS: No significant abnormality. SPLEEN: No significant abnormality. ADRENALS: No significant abnormality. RIGHT KIDNEY and URETER: No significant abnormality. LEFT KIDNEY and URETER: No significant abnormality. STOMACH and SMALL BOWEL: No significant abnormality. COLON: No significant abnormality. PERITONEUM: Small ventral wall defect No free fluid or free air. No fluid collection. LYMPH NODES: No significant adenopathy. AORTA and ARTERIES: Atherosclerotic calcified plaque present abdominal aorta and iliac arteries IVC and VEINS: No significant abnormality. URINARY BLADDER: No significant abnormality. REPRODUCTIVE ORGANS: Several calcified uterine fibroids are present ADDITIONAL FINDINGS: None. SKELETAL SYSTEM: Severe degenerative changes lumbar spine IMPRESSION: 1. Uterine fibroids 2. No acute abnormality identified Signer Name: Victorino Vazquez MD Signed: 01/14/2020 1:23 PM Workstation Name: [id number]
[2020-01-14 16:07] VITALS: BP 156/86
== END 2020-01-14 15:00 | disposition home or self-care (01) ==
LOC: ED 07:58
DX: M51.36 Other intervertebral disc degeneration, lumbar region (principal); M54.5 Low back pain; I10 Essential (primary) hypertension; E11.9 Type 2 diabetes mellitus without complications; Z90.49 Acquired absence of other specified parts of digestive tract; Z98.890 Other specified postprocedural states; Z79.84 Long term (current) use of oral hypoglycemic drugs; Z79.899 Other long term (current) drug therapy
CPT/HCPCS: 36415; 72100; 73502; 74177; 80048; 80076; 82962; 83690; 85025; 96374; 99285; Q9967

== ENCOUNTER 2020-05-02 06:44 | Emergency (ER) | payer MEDICARE ==
--- NOTE | 2020-05-02 07:17 | Emergency Department Report ---
ED General Adult HPI - General Chief complaint: Hypoglycemia Stated complaint: HYPOGLYCEMIA Time Seen by Provider: 05/02/20 07:05 Source: EMS Mode of arrival: Stretcher Limitations: Other - History of Present Illness Initial comments: As per [facility] consultant report, this 84-year-old female was feeling weak this morning. The family checks the blood sugar. They found it to be in the 60s. EMS was summoned. They administered oral glucose. Repeat glucose was 88. No other specific problem was referred by the family. Patient is a poor historian. She does speak in a very low voice. She is able to comprehend and answer but the examiner must be patient. She denies any other acute specific symptom and relates her weakness to low glucose. She he knows th at she is in the hospital. On review of systems she tells me that her left shoulder has been hurting for 6 months. Otherwise, nothing else was positive. Last month discharge summary: Hospitalization Condition: Stable Hospital course: This is a 84-year-old female who with a right-sided CVA (2012), diabetes mellitus, hyperlipidemia, and depression [facility] complaints of right facial droop. Patient underwent a CT head, CT a head/neck in the emergency department which showed no new acute infarct, right-sided PICA aneurysm and hemodynamically insignificant stenosis of the internal carotid artery. Neurology, ST, OT, PT were consulted. No acute events reported overnight. At the time of my exam patient displayed mild dysarthria and right upper extremity sensation alteration. This morning on note review physical therapy recommended, home health physical therapy occupational therapy recommended subacute rehab. Dr. Lopez spoke to the patient's family and they are agreeable to subacute rehab placement. PT and OT to help with re commend home health PT and OT. Possible discharge in the a.m. 04/15: At the time of my examination patient exhibits deficits upper extremity sensation alteration and mild dysarthria. MRI brain revealed acute infarct. No acute events reported overnight. CVA, acute -Patient presented with dysarthria and right-sided facial droop -Last known well 04/13 2099 -04/14 CT head without contrast shows no hemorrhage or mass-effect, no evidence of acute infarction, white matter microvascular changes including deep lacunar infarctions are not significantly changed -04/14 CTA head shows calcified atherosclerotic plaque along the cavernous segments of both internal carotid arteries, 50% stenosis along the course of the left internal carotid artery, the millimeter diameter right peak 3 mm right PICA aneurysm with no indication of large vessel occlusion -04/14 CTA neck shows minimal calcified atherosclerotic plaque on the posterior aspect of the left carotid bulb with no indication of hemodynamically si gnificant stenosis -04/14 MRI Brain shows right PLIC infarction -Neurology consulted, appreciate recommendations -Aspirin, Plavix, statin therapy restarted -04/14 lipid panel: Triglycerides 100, Cholesterol 161, LDL 121, HDL 32 -Permissive hypertension 04/15 through 04/17 per neurology -Accu-Cheks every 4 for 24 hours then ACHS -ST/PT/OT consulted; OT recommended subacute rehab and PT recommended HHPT with DME; 04/16 PT/OT recommended home health PT and OT -04/14 bedside swallow evaluation cleared by RN was passed -Aspiration/seizure/fall precautions -Per neurology patient will need to follow-up with stroke neurology outpatient for consideration of changing Plavix to Brilinta 90 mg/BID -Previous imagin05/2018 MRI brain showed volume loss, advanced chronic white matter changes, chronic lacunar infarcts in bilateral thalamus 05/2018 bilateral carotid Doppler ultrasound shows no hemodynamically significant stenosis in internal carotid arteries 05/2018 CT head/brain without contrast shows mild atrophy and an old lacunar infarct in the left thalamus 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 shows calcified atherosclerotic plaque along the cavernous segments of both internal carotid arteries, 50% stenosis along the course of the left internal carotid artery, the millimeter diameter right peak 3 mm right PICA aneurysm with no indication of large vessel occlusion -Neurosurgery consulted -Supportive care HLD -04/14 lipid panel: Triglycerides 100, Cholesterol 161, LDL 121, HDL 32 -Restarted home statin therapy HTN -Permissive hypertension for 24 hours given CVA -04/16 restart home antihypertensive regimen and titrate as needed when appropriate -CVA blood pressure goals: Less than 220/110 DM -04/15 hemoglobin A1c 6.5 -SSI -Accu-Cheks every 4 hours for 24 hours then AC at bedtime -Hold home Metformin Depression -Resume home Escitalopram DVT prophylaxis -SCDs to bilateral lower extremity while in bed Full code Disposition: DC/TX- HOME UNDER HOME HLTH -: minutes(s), hour(s) Radiation: other (No pain complaint) Worsens with: other (Weakness only) Associated Symptoms: denies other symptoms - Related Data Home Medications Medication Instructions Recorded Confirmed Last Taken Glimepiride [Amaryl] 4 mg PO DAILY 05/27/18 05/02/20 05/27/18 20:00 LORazepam [Lorazepam] 0.5 mg PO QHS 05/02/20 05/02/20 Unknown Valsartan [Diovan] 60 mg PO DAILY 05/02/20 05/02/20 Unknown Previous Rx's Medication Instructions Recorded Last Taken Type megestroL [Megestrol] 40 mg PO QDAY #30 tablet 07/01/13 05/27/18 20:00 Rx metFORMIN [Glucophage] 1,000 mg PO BID #60 tablet 07/01/13 05/27/18 20:00 Rx NIFEdipine [Nifedipine ER] 60 mg PO DAILY #30 tablet.er 05/31/18 Unknown Rx atenoloL [Tenormin] 50 mg PO BID #60 tablet 05/31/18 Unknown Rx cycloSPORINE [Restasis 0.05%] 1 drop OU BID #1 droperette 05/31/18 Unknown Rx Aspirin [Aspirin BABY CHEW TAB] 81 mg PO QDAY #30 tab.chew 04/17/20 Unknown Rx AtorvaSTATin [Lipitor] 40 mg PO QHS #30 tablet 04/17/20 Unknown Rx Escitalopram [Lexapro] 10 mg PO DAILY tablet 04/17/20 Unknown Rx Ticagrelor [Brilinta] 90 mg PO BID #60 tablet 04/17/20 Unknown Rx Allergies Allergy/AdvReac Type Severity Reaction Status Date / Time No Known Allergies Allergy Unverified 03/02/13 18:32 ED Review of Systems ROS: Stated complaint: HYPOGLYCEMIA Other details as noted in HPI Constitutional: weakness. denies: chills, fever Eyes: denies: eye pain, vision change ENT: denies: ear pain, throat pain Respiratory: denies: cough, shortness of breath Cardiovascular: denies: chest pain, palpitations Endocrine: no symptoms reported Gastrointestinal: denies: abdominal pain, nausea, diarrhea Genitourinary: denies: urgency, dysuria Musculoskeletal: arthralgia, other (Left shoulder pain). denies: back pain Skin: denies: rash, lesions Neurological: denies: headache, weakness, paresthesias Psychiatric: denies: anxiety, depression Hematological/Lymphatic: denies: easy bleeding, easy bruising ED Past Medical Hx - Past Medical History Hx Hypertension: Yes Hx CVA: Yes Hx Diabetes: Yes Additional medical history: HLD - Surgical History Hx Appendectomy: Yes Additional Surgical History: ectopic - Social History Smoking Status: Never Smoker - Medications Home Medications: Home Medications Medication Instructions Recorded Confirmed Last Taken Type megestroL [Megestrol] 40 mg PO QDAY #30 tablet 07/01/13 05/02/20 05/27/18 20:00 Rx metFORMIN [Glucophage] 1,000 mg PO BID #60 tablet 07/01/13 05/02/20 05/27/18 20:00 Rx Glimepiride [Amaryl] 4 mg PO DAILY 05/27/18 05/02/20 05/27/18 20:00 History NIFEdipine [Nifedipine ER] 60 mg PO DAILY #30 tablet.er 05/31/18 05/02/20 Unknown Rx atenoloL [Tenormin] 50 mg PO BID #60 tablet 05/31/18 05/02/20 Unknown Rx cycloSPORINE [Restasis 0.05%] 1 drop OU BID #1 droperette 05/31/18 05/02/20 Unknown Rx Aspirin [Aspirin BABY CHEW TAB] 81 mg PO QDAY #30 tab.chew 04/17/20 05/02/20 Unknown Rx AtorvaSTATin [Lipitor] 40 mg PO QHS #30 tablet 04/17/20 05/02/20 Unknown Rx Escitalopram [Lexapro] 10 mg PO DAILY tablet 04/17/20 05/02/20 Unknown Rx Ticagrelor [Brilinta] 90 mg PO BID #60 tablet 04/17/20 05/02/20 Unknown Rx LORazepam [Lorazepam] 0.5 mg PO QHS 05/02/20 05/02/20 Unknown History Valsartan [Diovan] 60 mg PO DAILY 05/02/20 05/02/20 Unknown History ED Physical Exam - General Limitations: Other ED Course Vital Signs 05/02/20 05/02/20 05/02/20 07:01 08:00 09:00 Temperature 97.2 F L Pulse Rate 74 83 76 Respiratory 17 19 20 Rate Blood Pressure 141/72 141/82 131/77 [Left] O2 Sat by Pulse 99 97 100 Oximetry 05/02/20 05/02/20 10:00 11:00 Temperature Pulse Rate 78 75 Respiratory 18 13 Rate Blood Pressure 145/82 123/68 [Left] O2 Sat by Pulse 96 95 Oximetry - Reevaluation(s) Reevaluation #1: I spoke with the patient's daughter. She states that she has stopped the glimepiride and the Metformin now x24 hours. She states that the blood sugar was in the 40s this a.m. She gave the patient orange juice prior to medic arrival. We will Accu-Chek the patient again and make sure she is eating. If the Accu- Chek is stable, the patient glimepiride and Metformin will be held for now. I think the glimepiride should be permanently discontinued. Perhaps the patient can be on a lower dose of Metformin. She will be referred back to Dr. Mane for further management if she is stable for discharge. 05/02/20 10:45 Reevaluation #2: Sugar preprandial is 90. Patient will be fed and discharged for follow-up with Dr. Mane. 05/02/20 11:29 ED Medical Decision Making - Lab Data Result diagrams: 05/02/20 07:54 05/02/20 07:54 Laboratory Results - last 24 hr 05/02/20 05/02/20 05/02/20 06:54 07:54 07:54 WBC 9.3 RBC 3.94 Hgb 12.8 Hct 37.9 MCV 96 MCH 32 MCHC 34 RDW 13.1 L Plt Count 311 Lymph % (Auto) 29.8 Robertson % (Auto) 7.0 Eos % (Auto) 2.5 Baso % (Auto) 0.3 Lymph # (Auto) 2.8 Robertson # (Auto) 0.7 Eos # (Auto) 0.2 Baso # (Auto) 0.0 Seg Neutrophils % 60.4 Seg Neutrophils # 5.6 Sodium 138 Potassium 4.1 Chloride 103.8 Carbon Dioxide 30 Anion Gap 8 BUN 16 Creatinine 1.1 Estimated GFR 57 BUN/Creatinine Ratio 15 Glucose 120 H POC Glucose 136 H Calcium 8.9 Total Bilirubin Direct Bilirubin Indirect Bilirubin AST ALT Alkaline Phosphatase Troponin T Total Protein Albumin Albumin/Globulin Ratio 05/02/20 07:54 WBC RBC Hgb Hct MCV MCH MCHC RDW Plt Count Lymph % (Auto) Robertson % (Auto) Eos % (Auto) Baso % (Auto) Lymph # (Auto) Robertson # (Auto) Eos # (Auto) Baso # (Auto) Seg Neutrophils % Seg Neutrophils # Sodium Potassium Chloride Carbon Dioxide Anion Gap BUN Creatinine Estimated GFR BUN/Creatinine Ratio Glucose POC Glucose Calcium Total Bilirubin 0.40 Direct Bilirubin < 0.2 Indirect Bilirubin 0.2 AST 18 ALT 16 Alkaline Phosphatase 60 Troponin T < 0.010 Total Protein 5.8 L Albumin 3.6 L Albumin/Globulin Ratio 1.6 Laboratory Results - last 24 hr 05/02/20 05/02/20 05/02/20 06:54 07:47 07:54 WBC 9.3 RBC 3.94 Hgb 12.8 Hct 37.9 MCV 96 MCH 32 MCHC 34 RDW 13.1 L Plt Count 311 Lymph % (Auto) 29.8 Robertson % (Auto) 7.0 Eos % (Auto) 2.5 Baso % (Auto) 0.3 Lymph # (Auto) 2.8 Robertson # (Auto) 0.7 Eos # (Auto) 0.2 Baso # (Auto) 0.0 Seg Neutrophils % 60.4 Seg Neutrophils # 5.6 Sodium Potassium Chloride Carbon Dioxide Anion Gap BUN Creatinine Estimated GFR BUN/Creatinine Ratio Glucose POC Glucose 136 H Calcium Total Bilirubin Direct Bilirubin Indirect Bilirubin AST ALT Alkaline Phosphatase Troponin T Total Protein Albumin Albumin/Globulin Ratio Urine Color Straw Urine Turbidity Clear Urine pH 7.0 Ur Specific Imperial 1.008 Urine Protein <15 mg/dl Urine Glucose (UA) Neg Urine Ketones Neg Urine Blood Neg Urine Nitrite Neg Urine Bilirubin Neg Urine Urobilinogen < 2.0 Ur Leukocyte Esterase Neg Urine WBC (Auto) < 1.0 Urine RBC (Auto) 2.0 U Epithel Cells (Auto) 1.0 Urine Bacteria (Auto) 1+ Urine Mucus Few 05/02/20 05/02/20 07:54 07:54 WBC RBC Hgb Hct MCV MCH MCHC RDW Plt Count Lymph % (Auto) Robertson % (Auto) Eos % (Auto) Baso % (Auto) Lymph # (Auto) Robertson # (Auto) Eos # (Auto) Baso # (Auto) Seg Neutrophils % Seg Neutrophils # Sodium 138 Potassium 4.1 Chloride 103.8 Carbon Dioxide 30 Anion Gap 8 BUN 16 Creatinine 1.1 Estimated GFR 57 BUN/Creatinine Ratio 15 Glucose 120 H POC Glucose Calcium 8.9 Total Bilirubin 0.40 Direct Bilirubin < 0.2 Indirect Bilirubin 0.2 AST 18 ALT 16 Alkaline Phosphatase 60 Troponin T < 0.010 Total Protein 5.8 L Albumin 3.6 L Albumin/Globulin Ratio 1.6 Urine Color Urine Turbidity Urine pH Ur Specific Imperial Urine Protein Urine Glucose (UA) Urine Ketones Urine Blood Urine Nitrite Urine Bilirubin Urine Urobilinogen Ur Leukocyte Esterase Urine WBC (Auto) Urine RBC (Auto) U Epithel Cells (Auto) Urine Bacteria (Auto) Urine Mucus - EKG Data -: EKG Interpreted by Me EKG shows normal: sinus rhythm, axis, intervals Rate: normal - EKG Data Interpretation: other (Left bundle branch block) - Radiology Data interpreted by me: FINDINGS: There is no evidence of hemorrhage, hydrocephalus, brain edema, or mass effect/mass lesion. There are stable multifocal chronic lacunar infarcts in the bilateral basal ganglia. There is stable moderate chronic small vessel ischemic change in the cerebral white matter. Ventricular and cisternal size appears normal for age. The included paranasal sinuses and mastoid air cells are clear. The orbits appea r unremarkable. IMPRESSION: 1. No acute findings or adverse change from the prior exam. Critical care attestation.: If time is entered above; I have spent that time in minutes in the direct care of this critically ill patient, excluding procedure time. ED Disposition Clinical Impression: Hypoglycemia Disposition: DC-01 TO HOME OR SELFCARE Is pt being admited?: No Does the pt Need Aspirin: No Condition: Stable Instructions: Hypoglycemia, [id number] Additional Instructions: As discussed with daughter, discontinue Metformin and glimepiride. Check sugars frequently and be sure to eat. Follow-up with Dr. Mane. Return any further problems or acute change. Referrals: PRIMARY CARE, [Primary Care Provider] - 3-5 Days HIRAM MANE MD [Staff Physician] - 2-3 Days Time of Disposition: 11:30
[2020-05-02 08:26] LABS: Calcium 8.9 mg/dL (8.4-10.2)
--- NOTE | 2020-05-02 08:30 | Cat Scan Report ---
CT head/brain wo con INDICATION: Mental status change, recent stroke. TECHNIQUE: Head CT without contrast All CT scans at this location are performed using CT dose reduction for ALAR A by means of automated exposure control. COMPARISON: CT head on 04/14/2020 FINDINGS: There is no evidence of hemorrhage, hydrocephalus, brain edema, or mass effect/mass lesion. There are stable multifocal chronic lacunar infarcts in the bilateral basal ganglia. There is stable moderate chronic small vessel ischemic change in the cerebral white matter. Ventricular and cisternal size pretty ears normal for age. The included paranasal sinuses and mastoid air cells are clear. The orbits appear unremarkable. IMPRESSION: 1. No acute findings or adverse change from the prior exam. Signer Name: Yadiel Fleming MD Signed: 05/02/2020 8:26 AM Workstation Name: [id number]
[2020-05-02 08:31] LABS: Alanine Aminotransferase 16 units/L (7-56); Albumin 3.6 g/dL (3.9-5)
[2020-05-02 08:34] LABS: Bilirubin,Direct < 0.2 mg/dL (0-0.2)
[2020-05-02 09:15] LABS: Basophils % (Auto) 0.3 % (0.0-1.8); Eosinophils # (Auto) 0.2 K/mm3 (0.0-0.4); Eosinophils % (Auto) 2.5 % (0.0-4.3); Hematocrit 37.9 % (30.3-42.9); Hemoglobin 12.8 gm/dl (10.1-14.3); Lymphocytes # (Auto) 2.8 K/mm3 (1.2-5.4); Lymphocytes % (Auto) 29.8 % (13.4-35.0); Mean Corpuscular HGB Conc 34 % (30-34); Mean Corpuscular Volume 96 fl (79-97); Monocytes # (Auto) 0.7 K/mm3 (0.0-0.8); Platelet Count 311 K/mm3 (140-440); Red Blood Count 3.94 M/mm3 (3.65-5.03); Red Cell Distribution Width 13.1 % (13.2-15.2)
[2020-05-02 10:03] LABS: Bacteria,Urine 1+ /HPF (Negative); Bilirubin,Urine NEG (Negative); Blood,Urine NEG (Negative); Color,Urine Straw (Yellow); Mucus,Urine FEW /HPF; Protein,Urine <15 mg/dL mg/dL (Negative); Urobilinogen,Urine < 2.0 mg/dL (<2.0); WBC,Urine < 1.0 /HPF (0.0-6.0)
[2020-05-02 13:52] VITALS: BP 122/59
== END 2020-05-02 15:01 | disposition home or self-care (01) ==
LOC: ED 06:44
DX: E11.649 Type 2 diabetes mellitus with hypoglycemia without coma (principal); R51.9 Headache, unspecified; I10 Essential (primary) hypertension; Z86.73 Personal history of transient ischemic attack (TIA), and cerebral infarction without residual deficits; Z90.49 Acquired absence of other specified parts of digestive tract; Z98.890 Other specified postprocedural states; Z79.84 Long term (current) use of oral hypoglycemic drugs; Z79.899 Other long term (current) drug therapy
CPT/HCPCS: 36415; 70450; 80048; 80076; 81001; 82962; 84484; 85025; 93005

== ENCOUNTER 2020-09-04 04:25 | Inpatient (IN) | payer MEDICARE ==
--- NOTE | 2020-09-04 04:39 | Event Note ---
ED Screening Note Date of service: 09/04/20 Time: 04:37 ED Screening Note: 84-year-old female present with a chief complaint of shortness of breath. Per EMS patient developed shortness of breath this evening. EMS was called and found the patient hypoxic to 61% on room air. Patient was placed on nonrebreather with increase of SPO2 to 99%. Patient denies chest pain. Patient was administered 3 sublingual nitroglycerin by family prior to arrival. Patient reportedly had an SD last month with cardiac stent placement and given a new diagnosis of CHF. Patient states she has been compliant with her medications This initial assessment/diagnostic orders/clinical plan/treatment(s) is/are sub ject to change based on patients health status, clinical progression and re- assessment by fellow clinical providers in the ED. Further treatment and workup at subsequent clinical providers discretion. Patient/guardian urged not to elope from the ED as their condition may be serious if not clinically assessed and managed. Initial orders include: BiPAP, chest x-ray, labs, EKG, monitor
[2020-09-04] MEDS ORDERED: FUROSEMIDE 40 MG/4 ML INJ IV ONE (05:03)
[2020-09-04 05:16] LABS: Basophils % (Auto) 0.2 % (0.0-1.8); Eosinophils # (Auto) 0.2 K/mm3 (0.0-0.4); Eosinophils % (Auto) 1.4 % (0.0-4.3); Hematocrit 32.1 % (30.3-42.9); Hemoglobin 10.8 gm/dl (10.1-14.3); Lymphocytes # (Auto) 1.2 K/mm3 (1.2-5.4); Lymphocytes % (Auto) 8.1 % (13.4-35.0); Mean Corpuscular HGB Conc 34 % (30-34); Mean Corpuscular Volume 98 fl (79-97); Monocytes # (Auto) 0.8 K/mm3 (0.0-0.8); Platelet Count 386 K/mm3 (140-440); Red Blood Count 3.27 M/mm3 (3.65-5.03)
--- NOTE | 2020-09-04 05:23 | XRay Report ---
CHEST 1 VIEW, 09/04/2020 4:04 AM CLINICAL INFORMATION/INDICATION: Shortness of breath COMPARISON: Chest radiograph, 04/14/2020 FINDINGS: SUPPORT DEVICES: None. HEART: The cardiac silhouette is upper limits of normal in size. LUNGS/PLEURA: Faint bilateral interstitial prominence is noted. ADDITIONAL FINDINGS: No additional acute findings. IMPRESSION: 1. Faint bilateral interstitial prominence suggesting mild pulmonary edema. 2. Mild enlargement of the cardiac silhouette. Signer Name: Tata Rodriguez MD Signed: 09/04/2020 5:19 AM Workstation Name: [id number]
[2020-09-04 05:30] LABS: INR 0.96 (0.87-1.13)
[2020-09-04 05:31] LABS: Partial Thromboplastin Time 25.7 Sec. (24.2-36.6)
[2020-09-04 05:36] LABS: Creatine Kinase MB 2.7 ng/mL (0.0-4.0)
[2020-09-04 05:37] LABS: Calcium 9.3 mg/dL (8.4-10.2)
[2020-09-04 06:06] LABS: Chol/HDL Ratio 2.43 %
--- NOTE | 2020-09-04 06:36 | Emergency Department Report ---
ED General Adult HPI - General Chief complaint: Dyspnea/Respdistress Stated complaint: SOB PUI?: Yes Time Seen by Provider: 09/04/20 06:07 Source: patient, family, EMS ( EMS documentation not available at time of chart dictation ), RN notes reviewed Mode of arrival: Stretcher Limitations: Physical Limitation - History of Present Illness Initial comments: The patient was evaluated in the emergency department for symptoms described in the history of present illness. He/she was evaluated in the context of the global COVID-19 pandemic, which necessitated consideration that the patient might be at risk for infection with the virus that causes COVID-19. Institutional protocols and algorithms that pertain to the evaluation of patients at risk for COVID-19 are in a state of rapid change based on information released by regulatory bodies including the CDC and federal and state organizations. These policies and algorithms were followed during the patient's care in the emergency department. Please note that these policies, procedures and recommendations changed on a rapid basis. During the entire history and physical examination, I had on complete personal protective equipment. The patient is an 84-year-old female. History obtained from her daughter, who provides most of the past medical history. The patient has a history of congestive heart failure, diagnosed last month, at [facility], and also has a history of ischemic heart disease, with stent placement. Her weigher packing is Dr. Joyner. She was admitted to [facility] last month with acute congestive heart failure, reportedly ruled out for Covid, had a CT angiogram chest which was negative for PE, and diagnosed with acute congestive heart failure, with ejection fraction of 25%. Patient was discharged, convalesced well, and as per her daughter, has been in her usual state of health, without any acute symptoms, when she developed sudden onset shortness of breath last night. The patient was apparently hypoxic and tachycardic in the field. She was started on CPAP/BiPAP prior to my personal evaluation, and given Lasix, prior to my personal evaluation. Currently, patient on BiPAP, resting comfortably, in no acute distress, heart rates high 90s/low 100s, blood pressure 110 systolic. As per her daughter, no fever, no nausea, vomiting, no loss of taste or smell, no urinary symptoms, no loss of consciousness, and no Covid exposure. The patient has also had 2 - Covid tests as per her daughter, and the daughter also reports that the patient is up-to-date with her Covid vaccinations. Currently, as per discussion with her daughter, advanced directives are not in place, and the patient is a full code. Patient herself appears comfortable, and does not endorse any complaints to myself. Daughter indicates that the patient is hard of hearing. -: Gradual Quality: other (Not describe quality) Consistency: other ( does not describe consistency) Improves with: other (Administration of BiPAP) Worsens with: other (Does not describe worsening factors) - Related Data Home Medications Medication Instructions Recorded Confirmed Last Taken Glimepiride [Amaryl] 2 mg PO DAILY 05/27/18 09/04/20 05/27/18 20:00 LORazepam [Lorazepam] 0.5 mg PO QHS PRN 05/02/20 09/04/20 Unknown Citalopram [celeXA] 20 mg PO QDAY 09/04/20 09/04/20 Unknown Furosemide [Lasix] 20 mg PO QDAY PRN 09/04/20 09/04/20 Unknown Isosorbide Mononitrate [Isosorbide 30 mg PO DAILY 09/04/20 09/04/20 Unknown Mononitrate ER] Losartan [Cozaar] 25 mg PO QDAY 09/04/20 09/04/20 Unknown Metoprolol Succinate [Kapspargo 50 mg PO DAILY 09/04/20 09/04/20 Unknown Sprinkle] Nitroglycerin [Nitrostat] 0.4 mg SL Q5MIN PRN 09/04/20 09/04/20 Unknown Nystatin Cream [Mycostatin Cream] 1 applic TP BID 09/04/20 09/04/20 Unknown Ticagrelor [Brilinta] 90 mg PO BID 09/04/20 09/04/20 Unknown Vit C/E/Zn/Coppr/Lutein/Zeaxan 1 each PO DAILY 09/04/20 09/04/20 Unknown [Preservision Areds 2 Softgel] cycloSPORINE [Restasis 0.05%] 1 drop OP BID 09/04/20 09/04/20 Unknown hydrALAZINE [Apresoline] 25 mg PO Q8HR 09/04/20 09/04/20 Unknown metFORMIN [Glucophage] 500 mg PO BID 09/04/20 09/04/20 Unknown Previous Rx's Medication Instructions Recorded Last Taken Type Aspirin [Aspirin BABY CHEW TAB] 81 mg PO QDAY #30 tab.chew 04/17/20 Unknown Rx AtorvaSTATin [Lipitor] 40 mg PO QHS #30 tablet 04/17/20 Unknown Rx Allergies Allergy/AdvReac Type Severity Reaction Status Date / Time No Known Allergies Allergy Verified 09/04/20 05:14 ED Review of Systems ROS: Stated complaint: SOB Other details as noted in HPI Comment: Unobtainable due to pts medical conditions (Review of systems as per daughter) Constitutional: denies: fever Respiratory: shortness of breath Cardiovascular: orthopnea. denies: syncope Gastrointestinal: denies: nausea, vomiting, diarrhea Genitourinary: denies: frequency Neurological: weakness Hematological/Lymphatic: denies: easy bleeding ED Past Medical Hx - Past Medical History Previous Medical History?: Yes Hx Hypertension: Yes Hx CVA: Yes Hx Congestive Heart Failure: Yes Hx Diabetes: Yes Additional medical history: HLD stents placed in JULY 2020 - Surgical History Past Surgical History?: Yes Hx Appendectomy: Yes Additional Surgical History: ectopic - Social History Smoking Status: Never Smoker Substance Use Type: None - Medications Home Medications: Home Medications Medication Instructions Recorded Confirmed Last Taken Type Glimepiride [Amaryl] 2 mg PO DAILY 05/27/18 09/04/20 05/27/18 20:00 History Aspirin [Aspirin BABY CHEW TAB] 81 mg PO QDAY #30 tab.chew 04/17/20 09/04/20 Unknown Rx AtorvaSTATin [Lipitor] 40 mg PO QHS #30 tablet 04/17/20 09/04/20 Unknown Rx LORazepam [Lorazepam] 0.5 mg PO QHS PRN 05/02/20 09/04/20 Unknown History Citalopram [celeXA] 20 mg PO QDAY 09/04/20 09/04/20 Unknown History Furosemide [Lasix] 20 mg PO QDAY PRN 09/04/20 09/04/20 Unknown History Isosorbide Mononitrate [Isosorbide 30 mg PO DAILY 09/04/20 09/04/20 Unknown History Mononitrate ER] Losartan [Cozaar] 25 mg PO QDAY 09/04/20 09/04/20 Unknown History Metoprolol Succinate [Kapspargo 50 mg PO DAILY 09/04/20 09/04/20 Unknown History Sprinkle] Nitroglycerin [Nitrostat] 0.4 mg SL Q5MIN PRN 09/04/20 09/04/20 Unknown History Nystatin Cream [Mycostatin Cream] 1 applic TP BID 09/04/20 09/04/20 Unknown History Ticagrelor [Brilinta] 90 mg PO BID 09/04/20 09/04/20 Unknown History Vit C/E/Zn/Coppr/Lutein/Zeaxan 1 each PO DAILY 09/04/20 09/04/20 Unknown History [Preservision Areds 2 Softgel] cycloSPORINE [Restasis 0.05%] 1 drop OP BID 09/04/20 09/04/20 Unknown History hydrALAZINE [Apresoline] 25 mg PO Q8HR 09/04/20 09/04/20 Unknown History metFORMIN [Glucophage] 500 mg PO BID 09/04/20 09/04/20 Unknown History ED Physical Exam - General Limitations: Physical Limitation General appearance: alert, obese - Head Head exam: Present: atraumatic, normocephalic - Eye Eye exam: Present: normal appearance, EOMI - ENT ENT exam: Present: normal exam, normal orophraynx, mucous membranes moist, normal external ear exam - Neck Neck exam: Present: normal inspection, full ROM. Absent: tenderness, meningismus - Respiratory Respiratory exam: Present: other (Pulmonary auscultation not performed secondary to lack of disposable stethoscope). Absent: stridor - Cardiovascular Cardiovascular Exam: Present: JVD, other (Cardiac auscultation not performed secondary to lack of disposable stethoscope) - GI/Abdominal GI/Abdominal exam: Present: soft. Absent: distended, tenderness, guarding, rebound, rigid, pulsatile mass - Rectal Rectal exam: Present: normal inspection, heme (-) stool, other (Chaperoned by nurse Ian Barrow). Absent: heme (+) stool, black stool, bloody stool, fecal impaction - Extremities Exam Extremities exam: Present: normal inspection, full ROM, pedal edema, other (2+ pulses noted in the bilateral upper and lower extremities. There is no palpable cord. negative Homans sign. Muscular compartments are soft. The pelvis is stable.). Absent: calf tenderness - Back Exam Back exam: Present: normal inspection. Absent: tenderness, CVA tenderness (R), CVA tenderness (L), paraspinal tenderness, vertebral tenderness - Neurological Exam Neurological exam: Present: alert, other (No facial droop. Tongue midline. Extraocular movements intact bilaterally. Facial sensation intact to light touch in V1, V2, V3 distribution bilaterally. 5 and a 5 strength in 4 extremities. Sensation intact to light touch in 4 extremities.) - Psychiatric Psychiatric exam: Present: flat affect - Skin Skin exam: Present: warm, dry, intact, normal color. Absent: rash ED Course Vital Signs 09/04/20 09/04/20 09/04/20 04:28 04:30 04:42 Pulse Rate 122 H 135 H 120 H Respiratory 36 H 38 H 34 H Rate Blood Pressure 170/104 170/104 O2 Sat by Pulse 88 84 96 Oximetry - Reevaluation(s) Reevaluation #1: 09/04/20 07:40 Rectal temperature 99.0 degrees. Brown stool, guaiac negative on rectal examination. Reevaluation #2: 09/04/20 07:55 Dr Tyler Lopez to admit to [facility] ED Medical Decision Making - Lab Data Result diagrams: 09/04/20 04:58 09/04/20 04:58 Vital Signs 09/04/20 09/04/20 09/04/20 04:28 04:30 04:42 Pulse Rate 122 H 135 H 120 H Respiratory 36 H 38 H 34 H Rate Blood Pressure 170/104 170/104 O2 Sat by Pulse 88 84 96 Oximetry Lab Results 09/04/20 09/04/20 09/04/20 Range/Units 04:58 04:58 04:58 WBC 15.3 H (4.5-11.0) K/mm3 RBC 3.27 L (3.65-5.03) M/mm3 Hgb 10.8 (10.1-14.3) gm/dl Hct 32.1 (30.3-42.9) % MCV 98 H (79-97) fl MCH 33 H (28-32) pg MCHC 34 (30-34) % RDW 15.0 (13.2-15.2) % Plt Count 386 (140-440) K/mm3 Lymph % (Auto) 8.1 L (13.4-35.0) % Carver % (Auto) 5.0 (0.0-7.3) % Eos % (Auto) 1.4 (0.0-4.3) % Baso % (Auto) 0.2 (0.0-1.8) % Lymph # (Auto) 1.2 (1.2-5.4) K/mm3 Carver # (Auto) 0.8 (0.0-0.8) K/mm3 Eos # (Auto) 0.2 (0.0-0.4) K/mm3 Baso # (Auto) 0.0 (0.0-0.1) K/mm3 Seg Neutrophils % 85.3 H (40.0-70.0) % Seg Neutrophils # 13.1 H (1.8-7.7) K/mm3 PT 13.4 (12.2-14.9) Sec. INR 0.96 (0.87-1.13) APTT 25.7 (24.2-36.6) Sec. VBG pH (7.320-7.420) Sodium 136 L (137-145) mmol/L Potassium 4.0 (3.6-5.0) mmol/L Chloride 101.0 (98-107) mmol/L Carbon Dioxide 19 L (22-30) mmol/L Anion Gap 20 mmol/L BUN 16 (7-17) mg/dL Creatinine 1.3 H (0.6-1.2) mg/dL Estimated GFR 47 ml/min BUN/Creatinine Ratio 12 % Glucose 219 H (65-100) mg/dL Calcium 9.3 (8.4-10.2) mg/dL Total Creatine Kinase 61 (30-135) units/L CK-MB (CK-2) 2.7 (0.0-4.0) ng/mL CK-MB (CK-2) Rel Index 4.4 H (0-4) Troponin T 0.031 H (0.00-0.029) ng/mL NT-Pro-B Natriuret Pep 56292 H (0-900) pg/mL Triglycerides 84 (2-149) mg/dL Cholesterol 112 (50-199) mg/dL LDL Cholesterol Direct 56 (50-130) mg/dL HDL Cholesterol 46 (40-59) mg/dL Cholesterol/HDL Ratio 2.43 % 09/04/20 Range/Units 04:58 WBC (4.5-11.0) K/mm3 RBC (3.65-5.03) M/mm3 Hgb (10.1-14.3) gm/dl Hct (30.3-42.9) % MCV (79-97) fl MCH (28-32) pg MCHC (30-34) % RDW (13.2-15.2) % Plt Count (140-440) K/mm3 Lymph % (Auto) (13.4-35.0) % Carver % (Auto) (0.0-7.3) % Eos % (Auto) (0.0-4.3) % Baso % (Auto) (0.0-1.8) % Lymph # (Auto) (1.2-5.4) K/mm3 Carver # (Auto) (0.0-0.8) K/mm3 Eos # (Auto) (0.0-0.4) K/mm3 Baso # (Auto) (0.0-0.1) K/mm3 Seg Neutrophils % (40.0-70.0) % Seg Neutrophils # (1.8-7.7) K/mm3 PT (12.2-14.9) Sec. INR (0.87-1.13) APTT (24.2-36.6) Sec. VBG pH 7.306 L (7.320-7.420) Sodium (137-145) mmol/L Potassium (3.6-5.0) mmol/L Chloride (98-107) mmol/L Carbon Dioxide (22-30) mmol/L Anion Gap mmol/L BUN (7-17) mg/dL Creatinine (0.6-1.2) mg/dL Estimated GFR ml/min BUN/Creatinine Ratio % Glucose (65-100) mg/dL Calcium (8.4-10.2) mg/dL Total Creatine Kinase (30-135) units/L CK-MB (CK-2) (0.0-4.0) ng/mL CK-MB (CK-2) Rel Index (0-4) Troponin T (0.00-0.029) ng/mL NT-Pro-B Natriuret Pep (0-900) pg/mL Triglycerides (2-149) mg/dL Cholesterol (50-199) mg/dL LDL Cholesterol Direct (50-130) mg/dL HDL Cholesterol (40-59) mg/dL Cholesterol/HDL Ratio % - EKG Data -: EKG Interpreted by Me Rate: tachycardia - EKG Data When compared to previous EKG there are: no significant change 09/04/20 07:33 EKG interpreted at 04: 35 Sinus rhythm, tachycardia, rate 128 bpm. Left axis deviation. QTC prolonged. Left bundle branch block. Motion artifact. Compared to prior EKG from April 22, 2020, unchanged, left bundle branch block is old, tachycardia is new. - Radiology Data Radiology results: pending, report reviewed, image reviewed [facility] [address] [place] [address] XRay Report Signed Patient: DORIS NGUYEN MR#: [id number] : 1935 Acct:[id number] Age/Sex: 84 / F ADM Date: 09/04/20 Loc: ED Attending Dr: Ordering Physician: CECELIA REDMAN MD Date of Service: 09/04/20 Procedure(s): XR chest 1V ap Accession Number(s): [id number] cc: CECELIA REDMAN MD Fluoro Time In Minutes: CHEST 1 VIEW, 09/04/2020 4:04 AM CLINICAL INFORMATION/INDICATION: Shortness of breath COMPARISON: Chest radiograph, 04/14/2020 FINDINGS: SUPPORT DEVICES: None. HEART: The cardiac silhouette is upper limits of normal in size. LUNGS/PLEURA: Faint bilateral interstitial prominence is noted. ADDITIONAL FINDINGS: No additional acute findings. IMPRESSION: 1. Faint bilateral interstitial prominence suggesting mild pulmonary edema. 2. Mild enlargement of the cardiac silhouette. Signer Name: Tata Rodriguez MD Signed: 09/04/2020 5:19 AM Workstation Name: [id number] Transcribed By: EB Dictated By: Tata Rodriguez MD Electronically Authenticated By: Tata Rodriguez MD Signed Date/Time: 09/04/20518 DD/ 7 - Medical Decision Making Differential diagnosis, including but not limited to: COVID-19, acute congestive heart failure, ischemic cardiomyopathy Assessment and plan: 84-year-old female with newly diagnosed history of ischemic heart disease and ischemic congestive heart failure last month at another hospital, who presented with acute respiratory failure, requiring initiation of positive pressure ventilation. Initial vital signs were very concerning, she is not currently tachycardic, or tachypneic at this time, and appears to be resting comfortably on BiPAP. Leukocytosis is likely a stress reaction. We appreciate that this patient meets systemic inflammatory response syndrome criteria, however, she is demonstrating evidence of florid fluid overload, manifest by hypoxia, JVD, chest x-ray findings. Covid is unlikely, but do not have access to rapid Covid testing. Patient had 2 - Covid tests as an outpatient, and is also up-to-date with Covid vaccination as per her daughter. I will order a Covid swab, give steroids empirically, continue Lasix and aspirin. Elevated troponin either type I or type II leak. Patient has not endorsed pain to myself. Have requested old medical records from [facility]. Have recommended admission to the medical service. Have discussed this plan of care with the patient's daughter, who verbalized understanding, and was amenable to this plan of care. Critical Care Time: Yes Critical care time in (mins) excluding proc time.: 45 Critical care attestation.: If time is entered above; I have spent that time in minutes in the direct care of this critically ill patient, excluding procedure time. ED Disposition Clinical Impression: Acute CHF (congestive heart failure) Disposition: OP ADMIT IP TO THIS HOSP Is pt being admited?: Yes Does the pt Need Aspirin: No Condition: Serious Referrals: LINDA ROSS MD [Primary Care Provider] - 3-5 Days
[2020-09-04] MEDS ORDERED: dexAMETHasone 4 MG/ML VIAL IV ONE ×2 (07:38→13:38)
[2020-09-04] MEDS ORDERED: METOCLOPRAMIDE 10 MG/2 ML INJ IV PRN ×2 (08:23→10:53)
[2020-09-04] MEDS ORDERED: ALBUTEROL 2.5 MG/3 ML NEBU IH PRN (08:23)
[2020-09-04] MEDS ORDERED: ONDANSETRON 4 MG/2 ML INJ IV PRN (08:23)
[2020-09-04] MEDS ORDERED: NITROGLYCERIN 0.4 MG TAB SUBL SL PRN (08:28)
--- NOTE | 2020-09-04 08:36 | History and Physical Report ---
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 ,Diabetes mellitus, hyperlipidemia, depression also recently diagnosed with congestive heart failure as of last month as patient reportedly had an UT requiring cardiac stent that was supposedly done at [facility]. Patient presents to the hospital today and per record obtained from the EMS and the ER staff was found to have a saturation of 61% on room air was placed on nonrebreather with increased to 99%. Also 3 sublingual nitroglycerin was given by the family prior to EMS arrival. In the ER the patient is on BiPAP currently at the time of my evaluation. 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 Joyner. of [facility] cardiology. Also documented is that the patient has had negative Covid testing in the past and is up-to-date with her vaccines although I am not sure which vaccine. I have tried to call the family to get more updated information but no answer. For the record indicate that the patient had an ejection fraction at the time of diagnosis of congestive heart failure of 25%. Physical exam documented by the ED physician noted substance pedal edema. So far the patient had received some doses of Lasix in the ER. She currently on BiPAP and could not answer most of my questions as noted above. 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 shows calcified atherosclerotic plaque along the cavernous segments of both internal carotid arteries, 50% stenosis along the course of the left internal carotid artery, the millimeter diameter right peak 3 mm right PICA aneurysm with no indication of large vessel occlusion -Neurosurgery consulted -Supportive care HLD -04/14 lipid panel: Triglycerides 100, Cholesterol 161, LDL 121, HDL 32 -Restarted home statin therapy HTN -Permissive hypertension for 24 hours given CVA -04/16 restart home antihypertensive regimen and titrate as needed when appropriate -CVA blood pressure goals: Less than 220/110 DM -04/15 hemoglobin A1c 6.5 -SSI -Accu-Cheks every 4 hours for 24 hours then AC at bedtime -Hold home Metformin Depression -Resume home Escitalopram DVT prophylaxis -SCDs to bilateral lower extremity while in bed Full code Disposition: [id number] HOME UNDER HOME [facility] Time spent for discharge: 35 mins Past History Past Medical History: hypertension, hyperlipidemia, stroke Past Surgical History: No surgical history Social history: no significant social history, lives with family, full code Family history: no significant family history Medications and Allergies Allergies Allergy/AdvReac Type Severity Reaction Status Date / Time No Known Allergies Allergy Verified 09/04/20 05:14 Home Medications Medication Instructions Recorded Confirmed Last Taken Type Glimepiride [Amaryl] 2 mg PO DAILY 05/27/18 09/04/20 05/27/18 20:00 History Aspirin [Aspirin BABY CHEW TAB] 81 mg PO QDAY #30 tab.chew 04/17/20 09/04/20 Un known Rx AtorvaSTATin [Lipitor] 40 mg PO QHS #30 tablet 04/17/20 09/04/20 Unknown Rx LORazepam [Lorazepam] 0.5 mg PO QHS PRN 05/02/20 09/04/20 Unknown History Citalopram [celeXA] 20 mg PO QDAY 09/04/20 09/04/20 Unknown History Furosemide [Lasix] 20 mg PO QDAY PRN 09/04/20 09/04/20 Unknown History Isosorbide Mononitrate [Isosorbide 30 mg PO DAILY 09/04/20 09/04/20 Unknown History Mononitrate ER] Losartan [Cozaar] 25 mg PO QDAY 09/04/20 09/04/20 Unknown History Metoprolol Succinate [Kapspargo 50 mg PO DAILY 09/04/20 09/04/20 Unknown History Sprinkle] Nitroglycerin [Nitrostat] 0.4 mg SL Q5MIN PRN 09/04/20 09/04/20 Unknown History Nystatin Cream [Mycostatin Cream] 1 applic TP BID 09/04/20 09/04/20 Unknown History Ticagrelor [Brilinta] 90 mg PO BID 09/04/20 09/04/20 Unknown History Vit C/E/Zn/Coppr/Lutein/Zeaxan 1 each PO DAILY 09/04/20 09/04/20 Unknown History [Preservision Areds 2 Softgel] cycloSPORINE [Restasis 0.05%] 1 drop OP BID 09/04/20 09/04/20 Unknown History hydrALAZINE [Apresoline] 25 mg PO Q8HR 09/04/20 09/04/20 Unknown History metFORMIN [Glucophage] 500 mg PO BID 09/04/20 09/04/20 Unknown History Active Meds: Active Medications Acetaminophen (Acetaminophen 325 Mg Tab) 650 mg PO Q4H PRN PRN Reason: Pain MILD(1-3)/Fever >100.5/KYLE Albuterol (Albuterol 2.5 Mg/3 Ml Nebu) 2.5 mg IH Q3HRT PRN PRN Reason: Shortness Of Breath Albuterol/Ipratropium (Ipratropium/Albuterol Sulfate 3 Ml Ampul.Neb) 1 ampul IH Q6HRT SHAYAN Aspirin (Aspirin 325 Mg Tab) 325 mg PO QDAY [facility] Aspirin (Aspirin 81 Mg Tab Chew) 81 mg PO QDAY [facility] Atorvastatin Calcium (Atorvastatin 40 Mg Tab) 40 mg PO QHS [facility] Budesonide (Budesonide 0.5 Mg/2 Ml Nebu) 0.5 mg IH Q12HRT [facility] Citalopram Hydrobromide (Citalopram 20 Mg Tab) 20 mg PO QDAY [facility] Dextrose (Dextrose 50% In Water (25gm) 50 Ml Syringe) 50 ml IV Q30MIN PRN; Protocol PRN Reason: Hypoglycemia Famotidine (Famotidine 20 Mg/2 Ml Inj) 20 mg IV BID [facility] Furosemide (Furosemide 40 Mg/4 Ml Inj) 40 mg IV QDAY [facility] Hydralazine HCl (Hydralazine 25 Mg Tab) 25 mg PO Q8HR [facility] Insulin Glargine (Insulin Glargine 100 Units/Ml) 15 units SUB-Q QHS [facility] Insulin Human Lispro (Insulin Lispro 100 Unit/Ml) 0 unit SUB-Q ACHS SHAYAN; Protocol Isosorbide Mononitrate (Isosorbide Mononitrate Er 30 Mg Tab) 30 mg PO DAILY [facility] Losartan Potassium (Losartan 25 Mg Tab) 25 mg PO QDAY [facility] Metoclopramide HCl (Metoclopramide 10 Mg/2 Ml Inj) 10 mg IV Q6H PRN PRN Reason: Nausea And Vomiting Miscellaneous Medication (Cyclosporine [Restasis 0.05%]) 1 drop OP BID [facility] Miscellaneous Medication (Metoprolol Succinate [Kapspargo Sprinkle]) 50 mg PO DAILY [facility] Miscellaneous Medication (Vit C/E/Zn/Coppr/Lutein/Zeaxan [Preservision Areds 2 Softgel]) 1 each PO DAILY SHAYAN Nitroglycerin (Nitroglycerin 0.4 Mg Tab Subl) 0.4 mg SL Q5MIN PRN PRN Reason: Chest Pain Nystatin (Nystatin Cream 15 Gm Tube) 1 applic TP BID SHAYAN Ondansetron HCl (Ondansetron 4 Mg/2 Ml Inj) 4 mg IV Q4H PRN PRN Reason: Nausea And Vomiting Oxycodone/Acetaminophen (Oxycodone /Acetaminophen 5-325mg Tab) 1 tab PO Q6H PRN PRN Reason: Pain, Moderate (4-6) Sodium Chloride (Sodium Chloride 0.9% 10 Ml Flush Syringe) 10 ml IV BID SHAYAN Sodium Chloride (Sodium Chloride 0.9% 10 Ml Flush Syringe) 10 ml IV PRN PRN PRN Reason: LINE FLUSH Ticagrelor (Ticagrelor 90 Mg Tab) 90 mg PO BID SHAYAN Review of Systems All systems: negative Cardiovascular: shortness of breath, dyspnea on exertion, paroxysmal nocturnal dyspnea, no chest pain, no orthopnea, no palpitations, no rapid/irregular heart beat, no edema, no syncope, no lightheadedness Respiratory: shortness of breath, dyspnea on exertion, no cough, no cough with sputum, no excessive sputum, no hemoptysis Exam - Physical Exam Narrative exam: VITAL SIGNS: Reviewed. GENERAL: The patient appears normally developed, obese on the BiPAP vital signs as documented. HEAD: No signs of head trauma. EYES: Pupils are equal. Extraocular motions intact. EARS: Hearing grossly intact. MOUTH: Oropharynx is normal. NECK: No adenopathy, no JVD. CHEST: Chest with diminished breath sounds bilaterally. No wheezes, rales, or rhonchi. CARDIAC: Regular rate and rhythm. S1 and S2, without murmurs, gallops, or rubs. VASCULAR: No Edema. Peripheral pulses normal and equal in all extremities. ABDOMEN: Soft, non tender and non distended. No rebound or guarding, and no masses palpated. Bowel Sounds normal. MUSCULOSKELETAL: Good range of motion of all major joints. Extremities without clubbing, cyanosis Or edema. NEUROLOGIC EXAM: Alert and oriented I would say x3 but patient is not answering most of my questions due to BiPAP. No focal sensory or strength deficits. Speech is not comprehensible as patient is on BiPAP she is follows commands. PSYCHIATRIC: Mood normal. SKIN: detail exam as documented in skin assessment - Constitutional Vitals: Temp Pulse Resp BP Pulse Ox 99.0 F 90 18 124/80 100 09/04/20 07:56 09/04/20 07:56 09/04/20 07:56 09/04/20 07:56 09/04/20 07:56 HEART Score - HEART Score Troponin: Troponin T 0.031 ng/mL (0.00-0.029) H 09/04/20 04:58 Results - Labs CBC & Chem 7: 09/04/20 04:58 09/04/20 04:58 Labs: Laboratory Last Values WBC 15.3 K/mm3 (4.5-11.0) H 09/04/20 04:58 RBC 3.27 M/mm3 (3.65-5.03) L 09/04/20 04:58 Hgb 10.8 gm/dl (10.1-14.3) 09/04/20 04:58 Hct 32.1 % (30.3-42.9) 09/04/20 04:58 MCV 98 fl (79-97) H 09/04/20 04:58 MCH 33 pg (28-32) H 09/04/20 04:58 MCHC 34 % (30-34) 09/04/20 04:58 RDW 15.0 % (13.2-15.2) 09/04/20 04:58 Plt Count 386 K/mm3 (140-440) 09/04/20 04:58 Lymph % (Auto) 8.1 % (13.4-35.0) L 09/04/20 04:58 Haines % (Auto) 5.0 % (0.0-7.3) 09/04/20 04:58 Eos % (Auto) 1.4 % (0.0-4.3) 09/04/20 04:58 Baso % (Auto) 0.2 % (0.0-1.8) 09/04/20 04:58 Lymph # (Auto) 1.2 K/mm3 (1.2-5.4) 09/04/20 04:58 Haines # (Auto) 0.8 K/mm3 (0.0-0.8) 09/04/20 04:58 Eos # (Auto) 0.2 K/mm3 (0.0-0.4) 09/04/20 04:58 Baso # (Auto) 0.0 K/mm3 (0.0-0.1) 09/04/20 04:58 Seg Neutrophils % 85.3 % (40.0-70.0) H 09/04/20 04:58 Seg Neutrophils # 13.1 K/mm3 (1.8-7.7) H 09/04/20 04:58 PT 13.4 Sec. (12.2-14.9) 09/04/20 04:58 INR 0.96 (0.87-1.13) 09/04/20 04:58 APTT 25.7 Sec. (24.2-36.6) 09/04/20 04:58 VBG pH 7.306 (7.320-7.420) L 09/04/20 04:58 Sodium 136 mmol/L (137-145) L 09/04/20 04:58 Potassium 4.0 mmol/L (3.6-5.0) 09/04/20 04:58 Chloride 101.0 mmol/L (98-107) 09/04/20 04:58 Carbon Dioxide 19 mmol/L (22-30) L 09/04/20 04:58 Anion Gap 20 mmol/L 09/04/20 04:58 BUN 16 mg/dL (7-17) 09/04/20 04:58 Creatinine 1.3 mg/dL (0.6-1.2) H 09/04/20 04:58 Estimated GFR 47 ml/min 09/04/20 04:58 BUN/Creatinine Ratio 12 % 09/04/20 04:58 Glucose 219 mg/dL (65-100) H 09/04/20 04:58 Calcium 9.3 mg/dL (8.4-10.2) 09/04/20 04:58 Total Creatine Kinase 61 units/L (30-135) 09/04/20 04:58 CK-MB (CK-2) 2.7 ng/mL (0.0-4.0) 09/04/20 04:58 CK-MB (CK-2) Rel Index 4.4 (0-4) H 09/04/20 04:58 Troponin T 0.031 ng/mL (0.00-0.029) H 09/04/20 04:58 NT-Pro-B Natriuret Pep 61864 pg/mL (0-900) H 09/04/20 04:58 Triglycerides 84 mg/dL (2-149) 09/04/20 04:58 Cholesterol 112 mg/dL (50-199) 09/04/20 04:58 LDL Cholesterol Direct 56 mg/dL (50-130) 09/04/20 04:58 HDL Cholesterol 46 mg/dL (40-59) 09/04/20 04:58 Cholesterol/HDL Ratio 2.43 % 09/04/20 04:58 Assessment and Plan Assessment and plan: Patient is an 84-year-old female with past medical history of CVA in 2012, however 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 ,Diabetes mellitus, hyperlipidemia, depression also recently diagnosed with congestive heart failure as of last month as patient reportedly had an UT requiring cardiac stent that was supposedly done at [facility]. Patient presents to the hospital today and per record obtained from the EMS and the ER staff was found to have a saturation of 61% on room air was placed on nonrebreather with increased to 99%. Also 3 sublingual nitroglycerin was given by the family prior to EMS arrival. In the ER the patient is on BiPAP currently at the time of my evaluation. 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 Joyner. of [facility] cardiology. Also documented is that the patient has had negative Covid testing in the past and is up-to-date with her vaccines although I am not sure which vaccine. I have tried to call the family to get more updated information but no answer. For the record indicate that the patient had an ejection fraction at the time of diagnosis of congestive heart failure of 25%. Physical exam documented by the ED physician noted substance pedal edema. So far the patient had received some doses of Lasix in the ER. She currently on BiPAP and could not answer most of my questions as noted above. Chest x-ray reviewed shows pulmonary congestion. Acute hypoxic respiratory failure Congestive heart failure acute on chronic likely systolic Hypertension Acute kidney injury likely vasomotor nephropathy Elevated troponin could be secondary to congestive heart failure doubt none ST elevated UT we will treat as such Leukocytosis Diabetes mellitus Depression History of CVA Plan Admit to telemetry Doubt COVID-19 blood test is in progress will follow Start CHF protocol including, beta-kenyatta, Lasix therapy, monitor electrolytes, daily weights and strict ins and outs Insulin for diabetes mellitus Continue BiPAP and wean as tolerated Underwriting Operations Manager and pulmonary consultation Monitor renal function We will give a full dose of Lovenox 1 time until cardiology evaluates the patient to determine if we treated an NSTEMI versus elevated troponin secondary to CHF Obtain echocardiogram ER doctor had requested records from [facility] will await and follow those records. DVT and GI prophylaxis We will try again to get family The high probability of a clinically significant, sudden or life threatening deterioration of the [CARDIAC AND PULMONARY] system(s) required my full and direct attention, intervention and personal management. The aggregate critical care time was [35] minutes. This time is in addition to time spent performing reported procedures but includes the following: [X] Data Review and interpretation [X] Patient assessment and monitoring of vital signs [X] Documentation [X] Medication orders and management Advance Directives: Yes (30 minutes) Plan of care discussed with patient/family: Yes
[2020-09-04] MEDS ORDERED: DEXTROSE 50% IN WATER (25GM) 50 ML SYRINGE IV PRN (09:00)
[2020-09-04] MEDS ORDERED: oxyCODONE /ACETAMINOPHEN 5-325MG TAB PO PRN (10:00)
[2020-09-04] MEDS ORDERED: CYCLOSPORINE OP SCH (10:00)
[2020-09-04] MEDS ORDERED: METOPROLOL SUCCINATE 50 MG PO SCH (10:00)
[2020-09-04] MEDS ORDERED: ASPIRIN 325 MG TAB PO SCH (10:00)
[2020-09-04] MEDS: LOSARTAN 25 MG TAB PO SCH (11:03)
[2020-09-04] MEDS: TICAGRELOR 90 MG TAB PO SCH ×2 (11:03→22:50)
[2020-09-04] MEDS: CITALOPRAM 20 MG TAB PO SCH (11:03)
[2020-09-04] MEDS: METOPROLOL SUCCINATE XL 50 MG TAB PO SCH (11:04)
[2020-09-04] MEDS: [UNRECOGNIZED DRUG - MIXTURE] PO SCH (11:04)
[2020-09-04] MEDS: NYSTATIN CREAM 15 GM TUBE TP SCH ×2 (11:04→22:49)
[2020-09-04] MEDS: BUDESONIDE 0.5 MG/2 ML NEBU IH SCH ×2 (12:00→20:57)
[2020-09-04] MEDS ORDERED: ENOXAPARIN 100 MG/1 ML INJ SUB-Q ONE (12:00)
[2020-09-04] MEDS: IPRATROPIUM/ALBUTEROL SULFATE 3 ML AMPUL.NEB IH SCH ×2 (13:00→20:57)
[2020-09-04 13:13] LABS: Creatine Kinase MB 4.4 ng/mL (0.0-4.0)
[2020-09-04] MEDS: FAMOTIDINE 20 MG/2 ML INJ IV SCH ×2 (14:04→22:51)
[2020-09-04] MEDS: hydrALAZINE 25 MG TAB PO SCH ×2 (14:05→22:50)
[2020-09-04] MEDS: INSULIN LISPRO 100 UNIT/ML SUB-Q SCH ×2 (14:05→22:48)
[2020-09-04 15:47] LABS: Bacteria,Urine 1+ /HPF (Negative); Bilirubin,Urine NEG (Negative); Blood,Urine NEG (Negative); Color,Urine Yellow (Yellow); Protein,Urine <15 mg/dL mg/dL (Negative); Urobilinogen,Urine < 2.0 mg/dL (<2.0)
[2020-09-04] MEDS: INSULIN GLARGINE 100 UNITS/ML SUB-Q SCH (22:48)
[2020-09-05] MEDS: IPRATROPIUM/ALBUTEROL SULFATE 3 ML AMPUL.NEB IH SCH ×4 (02:24→20:58)
[2020-09-05] MEDS: hydrALAZINE 25 MG TAB PO SCH ×3 (05:25→21:16)
[2020-09-05 06:09] LABS: Basophils % (Auto) 0.1 % (0.0-1.8); Hemoglobin 10.7 gm/dl (10.1-14.3); Lymphocytes # (Auto) 1.2 K/mm3 (1.2-5.4); Lymphocytes % (Auto) 11.1 % (13.4-35.0); Mean Corpuscular HGB Conc 35 % (30-34); Mean Corpuscular Volume 97 fl (79-97); Monocytes # (Auto) 0.8 K/mm3 (0.0-0.8); Monocytes % (Auto) 7.2 % (0.0-7.3); Platelet Count 351 K/mm3 (140-440); Red Blood Count 3.21 M/mm3 (3.65-5.03); Red Cell Distribution Width 14.6 % (13.2-15.2)
[2020-09-05 06:35] LABS: Calcium 9.4 mg/dL (8.4-10.2)
[2020-09-05] MEDS: INSULIN LISPRO 100 UNIT/ML SUB-Q SCH ×5 (07:59→22:24)
[2020-09-05] MEDS ORDERED: SODIUM CHLORIDE 0.9% 1000 ML 1,000 ML IV SCH (08:00)
[2020-09-05] MEDS: ASPIRIN 81 MG TAB CHEW PO SCH (09:24)
[2020-09-05] MEDS: TICAGRELOR 90 MG TAB PO SCH ×2 (09:24→21:17)
[2020-09-05] MEDS: LOSARTAN 25 MG TAB PO SCH (09:24)
[2020-09-05] MEDS: CITALOPRAM 20 MG TAB PO SCH (09:24)
[2020-09-05] MEDS: FAMOTIDINE 20 MG/2 ML INJ IV SCH ×2 (09:25→21:16)
--- NOTE | 2020-09-05 09:28 | Progress Note ---
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 ,Diabetes mellitus, hyperlipidemia, depression also recently diagnosed with congestive heart failure as of last month as patient reportedly had an AL req uiring cardiac stent that was supposedly done at [facility]. Patient presents to the hospital today and per record obtained from the EMS and the ER staff was found to have a saturation of 61% on room air was placed on nonrebreather with increased to 99%. Also 3 sublingual nitroglycerin was given by the family prior to EMS arrival. In the ER the patient is on BiPAP currently at the time of my evaluation. 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 Joyner. of [facility] cardiology. Also documented is that the patient has had negative Covid testing in the past and is up-to-date with her vaccines although I am not sure which vaccine. I have tried to call the family to get more updated information but no answer. For the record indicate that the patient had an ejection fraction at the time of diagnosis of congestive heart failure of 25%. Physical exam documented by the ED physician noted substance pedal edema. So far the patient had received some doses of Lasix in the ER. She currently on BiPAP and could not answer most of my questions as noted above. Chest x-ray reviewed shows pulmonary congestion. Acute hypoxic respiratory failure Congestive heart failure acute on chronic likely systolic Hypertension Acute kidney injury likely vasomotor nephropathy Elevated troponin could be secondary to congestive heart failure doubt none ST elevated AL we will treat as such Leukocytosis Diabetes mellitus Depression History of CVA Plan 09/05: I have reviewed records from [facility] it appears that while the patient was then started on IV Lasix patient went due to worsening renal failure initial creatinine was 1.4 at a time patient was given some fluids for correction. Documentation showed that the patient has a history of CHF but was not in heart failure at that time. Considering worsening renal function we will hold Lasix we will give patient 500 cc of fluid and low-dose maintenance fluid to KVO and recheck renal function in a.m. Will await pulmonary consultation for further evaluation of this patient. May be underlining COPD in the differentials. Elevated troponin likely secondary to type II NSTEMI troponin at the [facility] facility was 0.049 Covid test was negative Start CHF protocol including, beta-kenyatta, Lasix therapy, monitor electrolytes, daily weights and strict ins and outs Insulin for diabetes mellitus Continue BiPAP and wean as tolerated Clinical Informatics Specialist and pulmonary consultation Monitor renal function We will give a full dose of Lovenox 1 time until cardiology evaluates the patient to determine if we treated an NSTEMI versus elevated troponin secondary to CHF Obtain echocardiogram ER doctor had requested records from [facility] will await and follow those records. DVT and GI prophylaxis We will try again to get family History Interval history: Patient seen and examined now down to Venturi mask still with some shortness of breath but reports improvement denies any chest pain. Hospitalist Physical - Physical exam Narrative exam: VITAL SIGNS: Reviewed. GENERAL: The patient appears normally developed, obese on the Venturi mask vital signs as documented. HEAD: No signs of head trauma. EYES: Pupils are equal. Extraocular motions intact. EARS: Hearing grossly intact. MOUTH: Oropharynx is normal. NECK: No adenopathy, no JVD. CHEST: Chest with diminished breath sounds bilaterally. No wheezes, rales, or rhonchi. CARDIAC: Regular rate and rhythm. S1 and S2, without murmurs, gallops, or rubs. VASCULAR: No Edema. Peripheral pulses normal and equal in all extremities. ABDOMEN: Soft, non tender and non distended. No rebound or guarding, and no masses palpated. Bowel Sounds normal. MUSCULOSKELETAL: Good range of motion of all major joints. Extremities without clubbing, cyanosis Or edema. NEUROLOGIC EXAM: Alert and oriented x3. No focal sensory or motor deficits noted. Speech is normal. PSYCHIATRIC: Mood normal. SKIN: detail exam as documented in skin assessment - Constitutional Vitals: Temp Pulse Resp BP Pulse Ox 97.5 F L 98 H 18 124/83 99 09/05/20 08:55 09/05/20 08:55 09/05/20 08:55 09/05/20 09:24 09/05/20 08:55 HEART Score - HEART Score Troponin: Troponin T 0.083 ng/mL (0.00-0.029) H 09/04/20 17:38 Results - Labs CBC & Chem 7: 09/05/20 04:34 09/05/20 04:34 Labs: Laboratory Last Values WBC 10.8 K/mm3 (4.5-11.0) 09/05/20 04:34 RBC 3.21 M/mm3 (3.65-5.03) L 09/05/20 04:34 Hgb 10.7 gm/dl (10.1-14.3) 09/05/20 04:34 Hct 31.0 % (30.3-42.9) 09/05/20 04:34 MCV 97 fl (79-97) 09/05/20 04:34 MCH 33 pg (28-32) H 09/05/20 04:34 MCHC 35 % (30-34) H 09/05/20 04:34 RDW 14.6 % (13.2-15.2) 09/05/20 04:34 Plt Count 351 K/mm3 (140-440) 09/05/20 04:34 Lymph % (Auto) 11.1 % (13.4-35.0) L 09/05/20 04:34 [place] % (Auto) 7.2 % (0.0-7.3) 09/05/20 04:34 Eos % (Auto) 0.0 % (0.0-4.3) 09/05/20 04:34 Baso % (Auto) 0.1 % (0.0-1.8) 09/05/20 04:34 Lymph # (Auto) 1.2 K/mm3 (1.2-5.4) 09/05/20 04:34 [place] # (Auto) 0.8 K/mm3 (0.0-0.8) 09/05/20 04:34 Eos # (Auto) 0.0 K/mm3 (0.0-0.4) 09/05/20 04:34 Baso # (Auto) 0.0 K/mm3 (0.0-0.1) 09/05/20 04:34 Seg Neutrophils % 81.6 % (40.0-70.0) H 09/05/20 04:34 Seg Neutrophils # 8.8 K/mm3 (1.8-7.7) H 09/05/20 04:34 PT 13.4 Sec. (12.2-14.9) 09/04/20 04:58 INR 0.96 (0.87-1.13) 09/04/20 04:58 APTT 25.7 Sec. (24.2-36.6) 09/04/20 04:58 VBG pH 7.306 (7.320-7.420) L 09/04/20 04:58 Sodium 142 mmol/L (137-145) 09/05/20 04:34 Potassium 4.4 mmol/L (3.6-5.0) 09/05/20 04:34 Chloride 104.8 mmol/L (98-107) 09/05/20 04:34 Carbon Dioxide 21 mmol/L (22-30) L 09/05/20 04:34 Anion Gap 21 mmol/L 09/05/20 04:34 BUN 25 mg/dL (7-17) H 09/05/20 04:34 Creatinine 1.8 mg/dL (0.6-1.2) H 09/05/20 04:34 Estimated GFR 32 ml/min 09/05/20 04:34 BUN/Creatinine Ratio 14 % 09/05/20 04:34 Glucose 137 mg/dL (65-100) H 09/05/20 04:34 POC Glucose 214 mg/dL (70-105) H 09/04/20 22:38 Calcium 9.4 mg/dL (8.4-10.2) 09/05/20 04:34 Magnesium 1.90 mg/dL (1.7-2.3) 09/04/20 08:33 Total Creatine Kinase 70 units/L (30-135) 09/04/20 12:27 CK-MB (CK-2) 4.4 ng/mL (0.0-4.0) H 09/04/20 12:27 CK-MB (CK-2) Rel Index 4.4 (0-4) H 09/04/20 04:58 Troponin T 0.083 ng/mL (0.00-0.029) H 09/04/20 17:38 NT-Pro-B Natriuret Pep 91979 pg/mL (0-900) H 09/04/20 04:58 Triglycerides 84 mg/dL (2-149) 09/04/20 04:58 Cholesterol 112 mg/dL (50-199) 09/04/20 04:58 LDL Cholesterol Direct 56 mg/dL (50-130) 09/04/20 04:58 HDL Cholesterol 46 mg/dL (40-59) 09/04/20 04:58 Cholesterol/HDL Ratio 2.43 % 09/04/20 04:58 Urine Color Yellow (Yellow) 09/04/20 Unknown Urine Turbidity Slightly-cloudy (Clear) 09/04/20 Unknown Urine pH 5.0 (5.0-7.0) 09/04/20 Unknown Ur Specific [place] 1.009 (1.003-1.030) 09/04/20 Unknown Urine Protein <15 mg/dl mg/dL (Negative) 09/04/20 Unknown Urine Glucose (UA) Neg mg/dL (Negative) 09/04/20 Unknown Urine Ketones Neg mg/dL (Negative) 09/04/20 Unknown Urine Blood Neg (Negative) 09/04/20 Unknown Urine Nitrite Neg (Negative) 09/04/20 Unknown Urine Bilirubin Neg (Negative) 09/04/20 Unknown Urine Urobilinogen < 2.0 mg/dL (<2.0) 09/04/20 Unknown Ur Leukocyte Esterase Tr (Negative) 09/04/20 Unknown Urine WBC (Auto) 1.0 /HPF (0.0-6.0) 09/04/20 Unknown Urine RBC (Auto) 3.0 /HPF (0.0-6.0) 09/04/20 Unknown U Epithel Cells (Auto) 1.0 /HPF (0-13.0) 09/04/20 Unknown Urine Bacteria (Auto) 1+ /HPF (Negative) 09/04/20 Unknown Coronavirus (PCR) Negative (Negative) 09/04/20 10:00 Fofana/IV: Voiding Method External Female Catheter Active Medications - Current Medications Current Medications: Generic Name Dose Route Start Last Admin Trade Name Freq PRN Reason Stop Dose Admin Acetaminophen 650 mg 09/04/20 09:00 Acetaminophen 325 Mg Tab PO Q4H PRN Pain MILD(1-3)/Fever >100.5/KYLE Albuterol 2.5 mg 09/04/20 08:23 Albuterol 2.5 Mg/3 Ml Nebu IH Q3HRT PRN Shortness Of Breath Albuterol/Ipratropium 1 ampul 09/04/20 14:00 09/05/20 02:24 Ipratropium/Albuterol Sulfate 3 Ml Ampul.Neb IH Not Given Q6HRT SHAYAN Aspirin 81 mg 09/05/20 10:00 09/05/20 09:24 Aspirin 81 Mg Tab Chew PO 81 mg QDAY SHAYAN Administration Atorvastatin Calcium 40 mg 09/04/20 22:00 09/04/20 22:50 Atorvastatin 40 Mg Tab PO 40 mg QHS SHAYAN Administration Budesonide 0.5 mg 09/04/20 09:00 09/04/20 20:57 Budesonide 0.5 Mg/2 Ml Nebu IH 0.5 mg Q12HRT SHAYAN Administration Citalopram Hydrobromide 20 mg 09/04/20 10:00 09/05/20 09:24 Citalopram 20 Mg Tab PO 20 mg QDAY SHAYAN Administration Dextrose 50 ml 09/04/20 09:00 Dextrose 50% In Water (25gm) 50 Ml Syringe IV Q30MIN PRN Hypoglycemia Protocol Famotidine 20 mg 09/04/20 10:00 09/05/20 09:25 Famotidine 20 Mg/2 Ml Inj IV 20 mg BID SHAYAN Administration Hydralazine HCl 25 mg 09/04/20 14:00 09/05/20 05:25 Hydralazine 25 Mg Tab PO 25 mg Q8HR SHAYAN Administration Sodium Chloride 1,000 mls @ 42 mls/hr 09/05/20 08:00 Nacl 0.9% 1000 Ml IV DIRECT SHYAAN Insulin Glargine 15 units 09/04/20 22:00 09/04/20 22:48 Insulin Glargine 100 Units/Ml SUB-Q 15 units QHS SHAYAN Administration Insulin Human Lispro 0 unit 09/04/20 11:30 09/05/20 09:17 Insulin Lispro 100 Unit/Ml SUB-Q Not Given ACHS SHAYAN Protocol Isosorbide Mononitrate 30 mg 09/04/20 10:00 09/05/20 09:24 Isosorbide Mononitrate Er 30 Mg Tab PO 30 mg DAILY SHAYAN Administration Losartan Potassium 25 mg 09/04/20 10:00 09/05/20 09:24 Losartan 25 Mg Tab PO 25 mg QDAY SHAYAN Administration Metoclopramide HCl 5 mg 09/04/20 10:53 Metoclopramide 10 Mg/2 Ml Inj IV Q6H PRN Nausea Metoprolol Succinate 50 mg 09/04/20 10:00 09/04/20 11:04 Metoprolol Succinate Xl 50 Mg Tab PO Not Given QDAY SHAYAN Miscellaneous Medication 1 drop 09/04/20 10:00 09/04/20 11:04 Cyclosporine [Restasis 0.05%] OP Not Given BID SHAYAN Miscellaneous Medication 1 each 09/04/20 10:00 09/04/20 11:04 Vit C/E/Zn/Coppr/Lutein/Zeaxan [Preservision Areds 2 Softgel] PO Not Given DAILY SHAYAN Nitroglycerin 0.4 mg 09/04/20 08:28 Nitroglycerin 0.4 Mg Tab Subl SL Q5MIN PRN Chest Pain Nystatin 1 applic 09/04/20 10:00 09/04/20 22:49 Nystatin Cream 15 Gm Tube TP 1 applic BID SHAYAN Administration Ondansetron HCl 4 mg 09/04/20 08:23 09/04/20 23:11 Ondansetron 4 Mg/2 Ml Inj IV 4 mg Q4H PRN Administration Nausea And Vomiting Oxycodone/Acetaminophen 1 tab 09/04/20 10:00 Oxycodone /Acetaminophen 5-325mg Tab PO Q6H PRN Pain, Moderate (4-6) Sodium Chloride 10 ml 09/04/20 10:00 09/05/20 09:25 Sodium Chloride 0.9% 10 Ml Flush Syringe IV 10 ml BID SHAYAN Administration Sodium Chloride 10 ml 09/04/20 08:23 Sodium Chloride 0.9% 10 Ml Flush Syringe IV PRN PRN LINE FLUSH Ticagrelor 90 mg 09/04/20 10:00 09/05/20 09:24 Ticagrelor 90 Mg Tab PO 90 mg BID SHAYAN Administration Nutrition/Malnutrition Assess - Dietary Evaluation Nutrition/Malnutrition Findings: Nutrition Notes Start: 09/04/20 12:12 Freq: Status: Active Protocol: Document 09/04/20 12:13 CW (Rec: 09/04/20 12:13 CW [id number])
[2020-09-05] MEDS ORDERED: SODIUM CHLORIDE 0.9% 500 ML 500 ML IV ONE (10:00)
[2020-09-05] MEDS ORDERED: ENOXAPARIN 100 MG/1 ML INJ SUB-Q SCH (10:00)
[2020-09-05] MEDS ORDERED: FUROSEMIDE 40 MG/4 ML INJ IV SCH (10:00)
[2020-09-05] MEDS: BUDESONIDE 0.5 MG/2 ML NEBU IH SCH ×2 (10:49→20:58)
[2020-09-05] MEDS: METOPROLOL SUCCINATE XL 50 MG TAB PO SCH (11:30)
[2020-09-05] MEDS: NYSTATIN CREAM 15 GM TUBE TP SCH ×2 (11:46→23:00)
--- NOTE | 2020-09-05 12:10 | Consultation ---
History of Present Illness Consult date: 09/05/20 Requesting physician: CELSA RAMÍREZ Consult reason: congestive heart failure History of present illness: History could not be obtained from the patient. History obtained in the chart. Apparently patient is a 84-year-old with a history of ischemic cardiomyopathy EF around 25% in and out of [facility] for shortness of breath. She is followed at the [place] heart failure [facility] at [place]. She also has multiple medical problems including history of CVA in 2012, ,Diabetes mellitus, hyperlipidemia, depression and dementia. She was admitted to the hospital with shortness of breath and hypoxia. Currently being treated for congestive heart failure and change in mental status. . Past History Past Medical History: hypertension, hyperlipidemia, stroke Past Surgical History: No surgical history Social history: no significant social history, lives with family, full code Family history: no significant family history Medications and Allergies Allergies Allergy/AdvReac Type Severity Reaction Status Date / Time No Known Allergies Allergy Verified 09/04/20 05:14 Home Medications Medication Instructions Recorded Confirmed Last Taken Type Glimepiride [Amaryl] 2 mg PO DAILY 05/27/18 09/04/20 05/27/18 20:00 History Aspirin [Aspirin BABY CHEW TAB] 81 mg PO QDAY #30 tab.chew 04/17/20 09/04/20 Unknown Rx AtorvaSTATin [Lipitor] 40 mg PO QHS #30 tablet 04/17/20 09/04/20 Unknown Rx LORazepam [Lorazepam] 0.5 mg PO QHS PRN 05/02/20 09/04/20 Unknown History Citalopram [celeXA] 20 mg PO QDAY 09/04/20 09/04/20 Unknown History Furosemide [Lasix] 20 mg PO QDAY PRN 09/04/20 09/04/20 Unknown History Isosorbide Mononitrate [Isosorbide 30 mg PO DAILY 09/04/20 09/04/20 Unknown History Mononitrate ER] Losartan [Cozaar] 25 mg PO QDAY 09/04/20 09/04/20 Unknown History Metoprolol Succinate [Kapspargo 50 mg PO DAILY 09/04/20 09/04/20 Unknown History Sprinkle] Nitroglycerin [Nitrostat] 0.4 mg SL Q5MIN PRN 09/04/20 09/04/20 Unknown History Nystatin Cream [Mycostatin Cream] 1 applic TP BID 09/04/20 09/04/20 Unknown History Ticagrelor [Brilinta] 90 mg PO BID 09/04/20 09/04/20 Unknown History Vit C/E/Zn/Coppr/Lutein/Zeaxan 1 each PO DAILY 09/04/20 09/04/20 Unknown History [Preservision Areds 2 Softgel] cycloSPORINE [Restasis 0.05%] 1 drop OP BID 09/04/20 09/04/20 Unknown History hydrALAZINE [Apresoline] 25 mg PO Q8HR 09/04/20 09/04/20 Unknown History metFORMIN [Glucophage] 500 mg PO BID 09/04/20 09/04/20 Unknown History Active Meds: Active Medications Acetaminophen (Acetaminophen 325 Mg Tab) 650 mg PO Q4H PRN PRN Reason: Pain MILD(1-3)/Fever >100.5/KYLE Albuterol (Albuterol 2.5 Mg/3 Ml Nebu) 2.5 mg IH Q3HRT PRN PRN Reason: Shortness Of Breath Albuterol/Ipratropium (Ipratropium/Albuterol Sulfate 3 Ml Ampul.Neb) 1 ampul IH Q6HRT [facility] Last Admin: 09/05/20 10:49 Dose: 1 ampul Documented by: Aspirin (Aspirin 81 Mg Tab Chew) 81 mg PO QDAY [facility] Last Admin: 09/05/20 09:24 Dose: 81 mg Documented by: Atorvastatin Calcium (Atorvastatin 40 Mg Tab) 40 mg PO QHS [facility] Last Admin: 09/04/20 22:50 Dose: 40 mg Documented by: Budesonide (Budesonide 0.5 Mg/2 Ml Nebu) 0.5 mg IH Q12HRT [facility] Last Admin: 09/05/20 10:49 Dose: 0.5 mg Documented by: Citalopram Hydrobromide (Citalopram 20 Mg Tab) 20 mg PO QDAY [facility] Last Admin: 09/05/20 09:24 Dose: 20 mg Documented by: Dextrose (Dextrose 50% In Water (25gm) 50 Ml Syringe) 50 ml IV Q30MIN PRN; Protocol PRN Reason: Hypoglycemia Famotidine (Famotidine 20 Mg/2 Ml Inj) 20 mg IV BID [facility] Last Admin: 09/05/20 09:25 Dose: 20 mg Documented by: Hydralazine HCl (Hydralazine 25 Mg Tab) 25 mg PO Q8HR [facility] Last Admin: 09/05/20 05:25 Dose: 25 mg Documented by: Sodium Chloride (Nacl 0.9% 1000 Ml) 1,000 mls @ 42 mls/hr IV DIRECT [facility] Last Admin: 09/05/20 09:35 Dose: 42 mls/hr Documented by: Insulin Glargine (Insulin Glargine 100 Units/Ml) 15 units SUB-Q QHS [facility] Last Admin: 09/04/20 22:48 Dose: 15 units Documented by: Insulin Human Lispro (Insulin Lispro 100 Unit/Ml) 0 unit SUB-Q ACHS [facility]; Protocol Last Admin: 09/05/20 09:17 Dose: Not Given Documented by: Isosorbide Mononitrate (Isosorbide Mononitrate Er 30 Mg Tab) 30 mg PO DAILY [facility] Last Admin: 09/05/20 09:24 Dose: 30 mg Documented by: Losartan Potassium (Losartan 25 Mg Tab) 25 mg PO QDAY [facility] Last Admin: 09/05/20 09:24 Dose: 25 mg Documented by: Metoclopramide HCl (Metoclopramide 10 Mg/2 Ml Inj) 5 mg IV Q6H PRN PRN Reason: Nausea Metoprolol Succinate (Metoprolol Succinate Xl 50 Mg Tab) 50 mg PO QDAY [facility] Last Admin: 09/05/20 11:30 Dose: 50 mg Documented by: Miscellaneous Medication (Cyclosporine [Restasis 0.05%]) 1 drop OP BID [facility] Last Admin: 09/04/20 11:04 Dose: Not Given Documented by: Miscellaneous Medication (Vit C/E/Zn/Coppr/Lutein/Zeaxan [Preservision Areds 2 Softgel]) 1 each PO DAILY [facility] Last Admin: 09/04/20 11:04 Dose: Not Given Documented by: Nitroglycerin (Nitroglycerin 0.4 Mg Tab Subl) 0.4 mg SL Q5MIN PRN PRN Reason: Chest Pain Nystatin (Nystatin Cream 15 Gm Tube) 1 applic TP BID [facility] Last Admin: 09/05/20 11:46 Dose: Not Given Documented by: Ondansetron HCl (Ondansetron 4 Mg/2 Ml Inj) 4 mg IV Q4H PRN PRN Reason: Nausea And Vomiting Last Admin: 09/04/20 23:11 Dose: 4 mg Documented by: Oxycodone/Acetaminophen (Oxycodone /Acetaminophen 5-325mg Tab) 1 tab PO Q6H PRN PRN Reason: Pain, Moderate (4-6) Sodium Chloride (Sodium Chloride 0.9% 10 Ml Flush Syringe) 10 ml IV BID [facility] Last Admin: 09/05/20 09:25 Dose: 10 ml Documented by: Sodium Chloride (Sodium Chloride 0.9% 10 Ml Flush Syringe) 10 ml IV PRN PRN PRN Reason: LINE FLUSH Ticagrelor (Ticagrelor 90 Mg Tab) 90 mg PO BID [facility] Last Admin: 09/05/20 09:24 Dose: 90 mg Documented by: Review of Systems ROS unobtainable: due to mental status Physical Examination Vital Signs Pulse Resp Pulse Ox 122 H 36 H 88 09/04/20 04:28 09/04/20 04:28 09/04/20 04:28 General appearance: no acute distress HEENT: Positive: Normocephaly Neck: Positive: trachea midline Cardiac: Positive: Tachycardia Lungs: Positive: clear to auscultation Neuro: Positive: Other (Somnolent) Abdomen: Positive: Unremarkable Extremities: Present: +1 Edema Results 09/05/20 04:34 09/05/20 04:34 Cardiac Enzymes 09/04/20 Range/Units 12:27 CK-MB (CK-2) 4.4 H (0.0-4.0) ng/mL CBC 09/05/20 Range/Units 04:34 WBC 10.8 (4.5-11.0) K/mm3 RBC 3.21 L (3.65-5.03) M/mm3 Hgb 10.7 (10.1-14.3) gm/dl Hct 31.0 (30.3-42.9) % Plt Count 351 (140-440) K/mm3 Lymph # (Auto) 1.2 (1.2-5.4) K/mm3 [place] # (Auto) 0.8 (0.0-0.8) K/mm3 Eos # (Auto) 0.0 (0.0-0.4) K/mm3 Baso # (Auto) 0.0 (0.0-0.1) K/mm3 Comprehensive Metabolic Panel 09/05/20 Range/Units 04:34 Sodium 142 (137-145) mmol/L Potassium 4.4 (3.6-5.0) mmol/L Chloride 104.8 (98-107) mmol/L Carbon Dioxide 21 L (22-30) mmol/L BUN 25 H (7-17) mg/dL Creatinine 1.8 H (0.6-1.2) mg/dL Glucose 137 H (65-100) mg/dL Calcium 9.4 (8.4-10.2) mg/dL EKG interpretations - Telemetry EKG Rhythm: Sinus Tachycardia (With nonspecific intraventricular conduction delay) Assessment and Plan Assessment and plan Acute on chronic systolic congestive heart failure -Start patient on IV diuretics -Hold losartan for now -Continue Toprol -Monitor renal function History of cardiomyopathy -Questionable history of [place] -Work-up ongoing at [facility] -Continue medical therapy Acute renal failure -Hold losartan -Continue IV diuretics -Monitor renal function Change in mental status with history of CVA -Primary team following -Supportive care Hyperlipidemia -04/14 lipid panel: Triglycerides 100, Cholesterol 161, LDL 121, HDL 32 -Restarted home statin therapy Hypertension -Much better control since admission DM -Managed by primary team
[2020-09-05] MEDS: FUROSEMIDE 40 MG/4 ML INJ IV SCH (17:17)
--- NOTE | 2020-09-05 19:07 | Consultation ---
History of Present Illness Consult date: 09/05/20 Requesting physician: CELSA RAMÍREZ Reason for consult: dyspnea History of present illness: 84 yo s/p recent hospital stay at [facility] for acute CHF and CAD s/p PCI. Presents with increased SOB and dry cough. No fevers, chills, chest pain, hemoptysis, wheezing. She is a life-long non-smoker with no hx of asthma or COPD. Not on home O2. Active Medications Acetaminophen (Acetaminophen 325 Mg Tab) 650 mg PO Q4H PRN PRN Reason: Pain MILD(1-3)/Fever >100.5/KYLE Albuterol (Albuterol 2.5 Mg/3 Ml Nebu) 2.5 mg IH Q3HRT PRN PRN Reason: Shortness Of Breath Albuterol/Ipratropium (Ipratropium/Albuterol Sulfate 3 Ml Ampul.Neb) 1 ampul IH Q6HRT [facility] Last Admin: 09/05/20 15:16 Dose: 1 ampul Documented by: Aspirin (Aspirin 81 Mg Tab Chew) 81 mg PO QDAY [facility] Last Admin: 09/05/20 09:24 Dose: 81 mg Documented by: Atorvastatin Calcium (Atorvastatin 40 Mg Tab) 40 mg PO QHS [facility] Last Admin: 09/04/20 22:50 Dose: 40 mg Documented by: Budesonide (Budesonide 0.5 Mg/2 Ml Nebu) 0.5 mg IH Q12HRT [facility] Last Admin: 09/05/20 10:49 Dose: 0.5 mg Documented by: Citalopram Hydrobromide (Citalopram 20 Mg Tab) 20 mg PO QDAY [facility] Last Admin: 09/05/20 09:24 Dose: 20 mg Documented by: Dextrose (Dextrose 50% In Water (25gm) 50 Ml Syringe) 50 ml IV Q30MIN PRN; Protocol PRN Reason: Hypoglycemia Famotidine (Famotidine 20 Mg/2 Ml Inj) 20 mg IV BID [facility] Last Admin: 09/05/20 09:25 Dose: 20 mg Documented by: Furosemide (Furosemide 40 Mg/4 Ml Inj) 40 mg IV 0600,1800 [facility] Last Admin: 09/05/20 17:17 Dose: 40 mg Documented by: Hydralazine HCl (Hydralazine 25 Mg Tab) 25 mg PO Q8HR [facility] Last Admin: 09/05/20 16:40 Dose: 25 mg Documented by: Insulin Glargine (Insulin Glargine 100 Units/Ml) 15 units SUB-Q QHS [facility] Last Admin: 09/04/20 22:48 Dose: 15 units Documented by: Insulin Human Lispro (Insulin Lispro 100 Unit/Ml) 0 unit SUB-Q ACHS [facility]; Protocol Last Admin: 09/05/20 17:17 Dose: 3 unit Documented by: Isosorbide Mononitrate (Isosorbide Mononitrate Er 30 Mg Tab) 30 mg PO DAILY [facility] Last Admin: 09/05/20 09:24 Dose: 30 mg Documented by: Metoclopramide HCl (Metoclopramide 10 Mg/2 Ml Inj) 5 mg IV Q6H PRN PRN Reason: Nausea Metoprolol Succinate (Metoprolol Succinate Xl 50 Mg Tab) 50 mg PO QDAY [facility] Last Admin: 09/05/20 11:30 Dose: 50 mg Documented by: Miscellaneous Medication (Cyclosporine [Restasis 0.05%]) 1 drop OP BID [facility] Last Admin: 09/04/20 11:04 Dose: Not Given Documented by: Miscellaneous Medication (Vit C/E/Zn/Coppr/Lutein/Zeaxan [Preservision Areds 2 Softgel]) 1 each PO DAILY [facility] Last Admin: 09/04/20 11:04 Dose: Not Given Documented by: Nitroglycerin (Nitroglycerin 0.4 Mg Tab Subl) 0.4 mg SL Q5MIN PRN PRN Reason: Chest Pain Nystatin (Nystatin Cream 15 Gm Tube) 1 applic TP BID [facility] Last Admin: 09/05/20 11:46 Dose: Not Given Documented by: Ondansetron HCl (Ondansetron 4 Mg/2 Ml Inj) 4 mg IV Q4H PRN PRN Reason: Nausea And Vomiting Last Admin: 09/04/20 23:11 Dose: 4 mg Documented by: Oxycodone/Acetaminophen (Oxycodone /Acetaminophen 5-325mg Tab) 1 tab PO Q6H PRN PRN Reason: Pain, Moderate (4-6) Sodium Chloride (Sodium Chloride 0.9% 10 Ml Flush Syringe) 10 ml IV BID [facility] Last Admin: 09/05/20 09:25 Dose: 10 ml Documented by: Sodium Chloride (Sodium Chloride 0.9% 10 Ml Flush Syringe) 10 ml IV PRN PRN PRN Reason: LINE FLUSH Ticagrelor (Ticagrelor 90 Mg Tab) 90 mg PO BID [facility] Last Admin: 09/05/20 09:24 Dose: 90 mg Documented by: Past History Past Medical History: hypertension, hyperlipidemia, stroke, other (ischemic CMP; chronic CHF, CAD) Past Surgical History: No surgical history Social history: no significant social history, lives with family, full code. denies: smoking, alcohol abuse, prescription drug abuse, IV drug use Family history: no significant family history (no pulm issues reported) Medications and Allergies Allergies Allergy/AdvReac Type Severity Reaction Status Date / Time No Known Allergies Allergy Verified 09/04/20 05:14 Home Medications Medication Instructions Recorded Confirmed Last Taken Type Glimepiride [Amaryl] 2 mg PO DAILY 05/27/18 09/04/20 05/27/18 20:00 History Aspirin [Aspirin BABY CHEW TAB] 81 mg PO QDAY #30 tab.chew 04/17/20 09/04/20 Unknown Rx AtorvaSTATin [Lipitor] 40 mg PO QHS #30 tablet 04/17/20 09/04/20 Unknown Rx LORazepam [Lorazepam] 0.5 mg PO QHS PRN 05/02/20 09/04/20 Unknown History Citalopram [celeXA] 20 mg PO QDAY 09/04/20 09/04/20 Unknown History Furosemide [Lasix] 20 mg PO QDAY PRN 09/04/20 09/04/20 Unknown History Isosorbide Mononitrate [Isosorbide 30 mg PO DAILY 09/04/20 09/04/20 Unknown History Mononitrate ER] Losartan [Cozaar] 25 mg PO QDAY 09/04/20 09/04/20 Unknown History Metoprolol Succinate [Kapspargo 50 mg PO DAILY 09/04/20 09/04/20 Unknown History Sprinkle] Nitroglycerin [Nitrostat] 0.4 mg SL Q5MIN PRN 09/04/20 09/04/20 Unknown History Nystatin Cream [Mycostatin Cream] 1 applic TP BID 09/04/20 09/04/20 Unknown History Ticagrelor [Brilinta] 90 mg PO BID 09/04/20 09/04/20 Unknown History Vit C/E/Zn/Coppr/Lutein/Zeaxan 1 each PO DAILY 09/04/20 09/04/20 Unknown History [Preservision Areds 2 Softgel] cycloSPORINE [Restasis 0.05%] 1 drop OP BID 09/04/20 09/04/20 Unknown History hydrALAZINE [Apresoline] 25 mg PO Q8HR 09/04/20 09/04/20 Unknown History metFORMIN [Glucophage] 500 mg PO BID 09/04/20 09/04/20 Unknown History Active Meds: Active Medications Acetaminophen (Acetaminophen 325 Mg Tab) 650 mg PO Q4H PRN PRN Reason: Pain MILD(1-3)/Fever >100.5/KYLE Albuterol (Albuterol 2.5 Mg/3 Ml Nebu) 2.5 mg IH Q3HRT PRN PRN Reason: Shortness Of Breath Albuterol/Ipratropium (Ipratropium/Albuterol Sulfate 3 Ml Ampul.Neb) 1 ampul IH Q6HRT [facility] Last Admin: 09/05/20 15:16 Dose: 1 ampul Documented by: Aspirin (Aspirin 81 Mg Tab Chew) 81 mg PO QDAY [facility] Last Admin: 09/05/20 09:24 Dose: 81 mg Documented by: Atorvastatin Calcium (Atorvastatin 40 Mg Tab) 40 mg PO QHS [facility] Last Admin: 09/04/20 22:50 Dose: 40 mg Documented by: Budesonide (Budesonide 0.5 Mg/2 Ml Nebu) 0.5 mg IH Q12HRT [facility] Last Admin: 09/05/20 10:49 Dose: 0.5 mg Documented by: Citalopram Hydrobromide (Citalopram 20 Mg Tab) 20 mg PO QDAY [facility] Last Admin: 09/05/20 09:24 Dose: 20 mg Documented by: Dextrose (Dextrose 50% In Water (25gm) 50 Ml Syringe) 50 ml IV Q30MIN PRN; Protocol PRN Reason: Hypoglycemia Famotidine (Famotidine 20 Mg/2 Ml Inj) 20 mg IV BID [facility] Last Admin: 09/05/20 09:25 Dose: 20 mg Documented by: Furosemide (Furosemide 40 Mg/4 Ml Inj) 40 mg IV 0600,1800 [facility] Last Admin: 09/05/20 17:17 Dose: 40 mg Documented by: Hydralazine HCl (Hydralazine 25 Mg Tab) 25 mg PO Q8HR [facility] Last Admin: 09/05/20 16:40 Dose: 25 mg Documented by: Insulin Glargine (Insulin Glargine 100 Units/Ml) 15 units SUB-Q QHS [facility] Last Admin: 09/04/20 22:48 Dose: 15 units Documented by: Insulin Human Lispro (Insulin Lispro 100 Unit/Ml) 0 unit SUB-Q ACHS [facility]; Protocol Last Admin: 09/05/20 17:17 Dose: 3 unit Documented by: Isosorbide Mononitrate (Isosorbide Mononitrate Er 30 Mg Tab) 30 mg PO DAILY [facility] Last Admin: 09/05/20 09:24 Dose: 30 mg Documented by: Metoclopramide HCl (Metoclopramide 10 Mg/2 Ml Inj) 5 mg IV Q6H PRN PRN Reason: Nausea Metoprolol Succinate (Metoprolol Succinate Xl 50 Mg Tab) 50 mg PO QDAY [facility] Last Admin: 09/05/20 11:30 Dose: 50 mg Documented by: Miscellaneous Medication (Cyclosporine [Restasis 0.05%]) 1 drop OP BID [facility] Last Admin: 09/04/20 11:04 Dose: Not Given Documented by: Miscellaneous Medication (Vit C/E/Zn/Coppr/Lutein/Zeaxan [Preservision Areds 2 Softgel]) 1 each PO DAILY [facility] Last Admin: 09/04/20 11:04 Dose: Not Given Documented by: Nitroglycerin (Nitroglycerin 0.4 Mg Tab Subl) 0.4 mg SL Q5MIN PRN PRN Reason: Chest Pain Nystatin (Nystatin Cream 15 Gm Tube) 1 applic TP BID [facility] Last Admin: 09/05/20 11:46 Dose: Not Given Documented by: Ondansetron HCl (Ondansetron 4 Mg/2 Ml Inj) 4 mg IV Q4H PRN PRN Reason: Nausea And Vomiting Last Admin: 09/04/20 23:11 Dose: 4 mg Documented by: Oxycodone/Acetaminophen (Oxycodone /Acetaminophen 5-325mg Tab) 1 tab PO Q6H PRN PRN Reason: Pain, Moderate (4-6) Sodium Chloride (Sodium Chloride 0.9% 10 Ml Flush Syringe) 10 ml IV BID [facility] Last Admin: 09/05/20 09:25 Dose: 10 ml Documented by: Sodium Chloride (Sodium Chloride 0.9% 10 Ml Flush Syringe) 10 ml IV PRN PRN PRN Reason: LINE FLUSH Ticagrelor (Ticagrelor 90 Mg Tab) 90 mg PO BID [facility] Last Admin: 09/05/20 09:24 Dose: 90 mg Documented by: Review of Systems All systems: negative Physical Examination Vital signs: Vital Signs Pulse Resp Pulse Ox 122 H 36 H 88 09/04/20 04:28 09/04/20 04:28 09/04/20 04:28 General appearance: no acute distress, alert Eyes: non-icteric ENT: oropharynx moist Neck: supple Effort: normal Ascultation: Bilateral: clear (anteriorly) Cardiovascular: regular rate and rhythm (no mrg) Gastrointestinal: normoactive bowel sounds, soft, non-tender, non-distended Integumentary: normal Extremities: no cyanosis, no edema, pink and warm Musculoskeletal: no deformities normal mental status, non-focal exam, pupils equal and round mood appropriate, affect normal Results - Laboratory Findings CBC and BMP: 09/05/20 04:34 09/05/20 04:34 PT/INR, D-dimer PT 13.4 Sec. (12.2-14.9) 09/04/20 04:58 INR 0.96 (0.87-1.13) 09/04/20 04:58 Abnormal lab findings: Abnormal Labs 09/04/20 09/04/20 09/04/20 04:58 04:58 04:58 WBC 15.3 H RBC 3.27 L MCV 98 H MCH 33 H MCHC Lymph % (Auto) 8.1 L Seg Neutrophils % 85.3 H Seg Neutrophils # 13.1 H VBG pH 7.306 L Sodium 136 L Carbon Dioxide 19 L BUN Creatinine 1.3 H Glucose 219 H POC Glucose CK-MB (CK-2) CK-MB (CK-2) Rel Index 4.4 H Troponin T 0.031 H NT-Pro-B Natriuret Pep 80194 H 09/04/20 09/04/20 09/04/20 12:27 13:56 17:38 WBC RBC MCV MCH MCHC Lymph % (Auto) Seg Neutrophils % Seg Neutrophils # VBG pH Sodium Carbon Dioxide BUN Creatinine Glucose POC Glucose 138 H CK-MB (CK-2) 4.4 H CK-MB (CK-2) Rel Index Troponin T 0.090 H D 0.083 H NT-Pro-B Natriuret Pep 09/04/20 09/05/20 09/05/20 22:38 04:34 04:34 WBC RBC 3.21 L MCV MCH 33 H MCHC 35 H Lymph % (Auto) 11.1 L Seg Neutrophils % 81.6 H Seg Neutrophils # 8.8 H VBG pH Sodium Carbon Dioxide 21 L BUN 25 H Creatinine 1.8 H Glucose 137 H POC Glucose 214 H CK-MB (CK-2) CK-MB (CK-2) Rel Index Troponin T NT-Pro-B Natriuret Pep 09/05/20 12:55 WBC RBC MCV MCH MCHC Lymph % (Auto) Seg Neutrophils % Seg Neutrophils # VBG pH Sodium Carbon Dioxide BUN Creatinine Glucose POC Glucose 128 H CK-MB (CK-2) CK-MB (CK-2) Rel Index Troponin T NT-Pro-B Natriuret Pep - Diagnostic Findings Chest x-ray: report reviewed, image reviewed Assessment and Plan Imp: 1. ICMP 2. A/C systolic CHF 3. Acute respiratory failure, hypoxia 2/2 above 4. CAD s/p recent PCI 5. GENE Rec: 1. I do not believe she has obstructive lung disease, and her current decompensation is most likely related to her severe cardiomyopathy and worsening CHF; steroids/ABX not indicated; would d/c IVFs and cont. Lasix; if she fails to mobilize fluid with Lasix or continues to have a bump in Cr, would consider adding inotropic therapy but will defer this to cardiology 2. Wean O2 to keep sats 88% or > Plan of care reviewed w/ patient/family, they understand/agree Thanks for the consult. Will follow closely with you.
[2020-09-05] MEDS: INSULIN GLARGINE 100 UNITS/ML SUB-Q SCH (21:17)
[2020-09-06] MEDS: IPRATROPIUM/ALBUTEROL SULFATE 3 ML AMPUL.NEB IH SCH ×4 (03:49→21:08)
[2020-09-06] MEDS: FUROSEMIDE 40 MG/4 ML INJ IV SCH ×2 (05:10→17:04)
[2020-09-06] MEDS: hydrALAZINE 25 MG TAB PO SCH ×3 (05:10→21:33)
[2020-09-06 06:04] LABS: Calcium 8.6 mg/dL (8.4-10.2)
[2020-09-06] MEDS: BUDESONIDE 0.5 MG/2 ML NEBU IH SCH ×2 (09:00→21:08)
[2020-09-06] MEDS: INSULIN LISPRO 100 UNIT/ML SUB-Q SCH ×4 (09:43→21:31)
[2020-09-06] MEDS: FAMOTIDINE 20 MG/2 ML INJ IV SCH (09:44)
[2020-09-06] MEDS: CITALOPRAM 20 MG TAB PO SCH (09:44)
[2020-09-06] MEDS: TICAGRELOR 90 MG TAB PO SCH ×2 (09:44→21:33)
[2020-09-06] MEDS: ASPIRIN 81 MG TAB CHEW PO SCH (09:44)
[2020-09-06] MEDS: METOPROLOL SUCCINATE XL 50 MG TAB PO SCH (09:44)
[2020-09-06] MEDS: NYSTATIN CREAM 15 GM TUBE TP SCH ×2 (09:45→21:31)
--- NOTE | 2020-09-06 10:25 | Consultation ---
History of Present Illness - Reason for Consult Consult date: 09/06/20 acute renal failure Requesting physician: CELSA RAMÍREZ - History of Present Illness 84-year-old [place]ian lady with a history of diabetes mellitus, hypertension previous cerebrovascular accident presents on account of shortness of breath. Patient O2 sat on presentation was 61% in room air. She was having a dry cough. She was placed on nonrebreather mask with improvement in oxygen to 99%. She denies any chest pain. She was recently at [facility] with an acute myocardial infarction and had percutaneous coronary intervention. She was diagnosed with congestive heart failure with 2D echo showing ejection fraction of 25%. BUN/creatinine on presentation was 16/1.3 mg/dL. Patient was started on IV diuretics with improvement in symptoms but BUN/creatinine increased to 25/1.8 mg/dL. She was temporarily started on intravenous fluids but this has been held. MONIK inhibitor was stopped and patient is on Lasix 40 mg twice daily intravenously. I am consulted to assist in managing her acute kidney injury. Patient is feeling better as her cough is resolving and shortness of breath has resolved. Past History Past Medical History: diabetes, heart failure, hypertension, hyperlipidemia, stroke, other (ischemic CMP; chronic CHF, CAD) Past Surgical History: No surgical history Social history: no significant social history, lives with family (Lives with her daughter. 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 denies: smoking, alcohol abuse, prescription drug abuse, IV drug use Family history: diabetes, hypertension Medications and Allergies Allergies Allergy/AdvReac Type Severity Reaction Status Date / Time No Known Allergies Allergy Verified 09/04/20 05:14 Home Medications Medication Instructions Recorded Confirmed Last Taken Type Glimepiride [Amaryl] 2 mg PO DAILY 05/27/18 09/04/20 05/27/18 20:00 History Aspirin [Aspirin BABY CHEW TAB] 81 mg PO QDAY #30 tab.chew 04/17/20 09/04/20 Unknown Rx AtorvaSTATin [Lipitor] 40 mg PO QHS #30 tablet 04/17/20 09/04/20 Unknown Rx LORazepam [Lorazepam] 0.5 mg PO QHS PRN 05/02/20 09/04/20 Unknown History Citalopram [celeXA] 20 mg PO QDAY 09/04/20 09/04/20 Unknown History Furosemide [Lasix] 20 mg PO QDAY PRN 09/04/20 09/04/20 Unknown History Isosorbide Mononitrate [Isosorbide 30 mg PO DAILY 09/04/20 09/04/20 Unknown History Mononitrate ER] Losartan [Cozaar] 25 mg PO QDAY 09/04/20 09/04/20 Unknown History Metoprolol Succinate [Kapspargo 50 mg PO DAILY 09/04/20 09/04/20 Unknown History Sprinkle] Nitroglycerin [Nitrostat] 0.4 mg SL Q5MIN PRN 09/04/20 09/04/20 Unknown History Nystatin Cream [Mycostatin Cream] 1 applic TP BID 09/04/20 09/04/20 Unknown His tory Ticagrelor [Brilinta] 90 mg PO BID 09/04/20 09/04/20 Unknown History Vit C/E/Zn/Coppr/Lutein/Zeaxan 1 each PO DAILY 09/04/20 09/04/20 Unknown History [Preservision Areds 2 Softgel] cycloSPORINE [Restasis 0.05%] 1 drop OP BID 09/04/20 09/04/20 Unknown History hydrALAZINE [Apresoline] 25 mg PO Q8HR 09/04/20 09/04/20 Unknown History metFORMIN [Glucophage] 500 mg PO BID 09/04/20 09/04/20 Unknown History Active Meds: Active Medications Acetaminophen (Acetaminophen 325 Mg Tab) 650 mg PO Q4H PRN PRN Reason: Pain MILD(1-3)/Fever >100.5/KYLE Albuterol (Albuterol 2.5 Mg/3 Ml Nebu) 2.5 mg IH Q3HRT PRN PRN Reason: Shortness Of Breath Albuterol/Ipratropium (Ipratropium/Albuterol Sulfate 3 Ml Ampul.Neb) 1 ampul IH Q6HRT [facility] Last Admin: 09/06/20 09:00 Dose: 1 ampul Documented by: Aspirin (Aspirin 81 Mg Tab Chew) 81 mg PO QDAY [facility] Last Admin: 09/06/20 09:44 Dose: 81 mg Documented by: Atorvastatin Calcium (Atorvastatin 40 Mg Tab) 40 mg PO QHS [facility] Last Admin: 09/05/20 21:17 Dose: 40 mg Documented by: Budesonide (Budesonide 0.5 Mg/2 Ml Nebu) 0.5 mg IH Q12HRT [facility] Last Admin: 09/06/20 09:00 Dose: 0.5 mg Documented by: Citalopram Hydrobromide (Citalopram 20 Mg Tab) 20 mg PO QDAY [facility] Last Admin: 09/06/20 09:44 Dose: 20 mg Documented by: Dextrose (Dextrose 50% In Water (25gm) 50 Ml Syringe) 50 ml IV Q30MIN PRN; Protocol PRN Reason: Hypoglycemia Famotidine (Famotidine 20 Mg/2 Ml Inj) 20 mg IV BID [facility] Last Admin: 09/06/20 09:44 Dose: 20 mg Documented by: Furosemide (Furosemide 40 Mg/4 Ml Inj) 40 mg IV 0600,1800 [facility] Last Admin: 09/06/20 05:10 Dose: 40 mg Documented by: Hydralazine HCl (Hydralazine 25 Mg Tab) 25 mg PO Q8HR [facility] Last Admin: 09/06/20 05:10 Dose: 25 mg Documented by: Insulin Glargine (Insulin Glargine 100 Units/Ml) 15 units SUB-Q QHS [facility] Last Admin: 09/05/20 21:17 Dose: 15 units Documented by: Insulin Human Lispro (Insulin Lispro 100 Unit/Ml) 0 unit SUB-Q ACHS [facility]; Protocol Last Admin: 09/06/20 09:43 Dose: Not Given Documented by: Isosorbide Mononitrate (Isosorbide Mononitrate Er 30 Mg Tab) 30 mg PO DAILY [facility] Last Admin: 09/06/20 09:44 Dose: 30 mg Documented by: Metoclopramide HCl (Metoclopramide 10 Mg/2 Ml Inj) 5 mg IV Q6H PRN PRN Reason: Nausea Metoprolol Succinate (Metoprolol Succinate Xl 50 Mg Tab) 50 mg PO QDAY [facility] Last Admin: 09/06/20 09:44 Dose: 50 mg Documented by: Miscellaneous Medication (Cyclosporine [Restasis 0.05%]) 1 drop OP BID [facility] Last Admin: 09/04/20 11:04 Dose: Not Given Documented by: Miscellaneous Medication (Vit C/E/Zn/Coppr/Lutein/Zeaxan [Preservision Areds 2 Softgel]) 1 each PO DAILY [facility] Last Admin: 09/04/20 11:04 Dose: Not Given Documented by: Nitroglycerin (Nitroglycerin 0.4 Mg Tab Subl) 0.4 mg SL Q5MIN PRN PRN Reason: Chest Pain Nystatin (Nystatin Cream 15 Gm Tube) 1 applic TP BID [facility] Last Admin: 09/06/20 09:45 Dose: Not Given Documented by: Ondansetron HCl (Ondansetron 4 Mg/2 Ml Inj) 4 mg IV Q4H PRN PRN Reason: Nausea And Vomiting Last Admin: 09/04/20 23:11 Dose: 4 mg Documented by: Oxycodone/Acetaminophen (Oxycodone /Acetaminophen 5-325mg Tab) 1 tab PO Q6H PRN PRN Reason: Pain, Moderate (4-6) Sodium Chloride (Sodium Chloride 0.9% 10 Ml Flush Syringe) 10 ml IV BID [facility] Last Admin: 09/06/20 09:45 Dose: 10 ml Documented by: Sodium Chloride (Sodium Chloride 0.9% 10 Ml Flush Syringe) 10 ml IV PRN PRN PRN Reason: LINE FLUSH Ticagrelor (Ticagrelor 90 Mg Tab) 90 mg PO BID [facility] Last Admin: 09/06/20 09:44 Dose: 90 mg Documented by: Review of Systems All systems: negative (As noted in history of present illness. Denies any voiding difficulties now. No frequency, urgency, dysuria or hematuria) Exam - Vital Signs Vital signs: Vital Signs Pulse Resp Pulse Ox 122 H 36 H 88 09/04/20 04:28 09/04/20 04:28 09/04/20 04:28 - Physical Exam Narrative exam: Frail elderly lady lying in bed in no acute distress HEENT: NCAT, status post cataract extraction Neck: Supple, no venous distention CVS: S1S2 RRR with no murmur, rub or gallop Chest: Clear to auscultation Abdomen: Protuberant, soft, nontender, no organomegaly, bowel sounds are present Extremities: No edema Genitourinary deferred Skin warm and dry Neuro: Awake, alert no focal deficits Results - Lab Results 09/05/20 04:34 09/06/20 04:01 Most recent lab results Calcium 8.6 mg/dL (8.4-10.2) 09/06/20 04:01 Magnesium 1.90 mg/dL (1.7-2.3) 09/04/20 08:33 Assessment and Plan - Patient Problems (1) Acute kidney injury Current Visit: Yes Status: Acute Plan to address problem: Acute kidney injury in setting of acute cardiorenal syndrome worsening probably related to the diuretics. 7. 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 Get urine studies. Get renal ultrasound. Hold diuretics and follow-up electrolytes and renal function. Adjust medications to GFR less than 30 mls per minute. 2 g sodium renal diet (2) Acute on chronic systolic heart failure Current Visit: Yes Status: Acute Plan to address problem: Symptoms have improved. Will hold Lasix. Repeat chest x-ray. Further management depending on the results and clinical status (3) Hypertension Current Visit: Yes Status: Acute Plan to address problem: Blood pressure is improving. Follow-up blood pressure on current medications. (4) Type II diabetes mellitus Current Visit: No Status: Chronic Plan to address problem: Blood sugar management by primary attending (5) Anemia Current Visit: Yes Status: Acute Plan to address problem: Follow-up hemoglobin (6) Hyperlipidemia Current Visit: No Status: Chronic Plan to address problem: Continue hyperlipidemic agents
--- NOTE | 2020-09-06 11:59 | Progress Note ---
Assessment and Plan 84 y/o female with what appears to be volume overload. Follow up cards recs Continue diuresis Wean FiO2 as tolerated. Subjective Date of service: 09/06/20 Interval history: No acute events Objective Vital Signs - 12hr 09/06/20 09/06/20 09/06/20 00:00 01:00 03:56 Temperature 97.3 F L Pulse Rate 99 H 99 H Pulse Rate [ Bilateral Throughout] Respiratory 18 18 Rate Respiratory Rate [Bilateral Throughout] Blood Pressure 136/94 O2 Sat by Pulse 96 97 Oximetry 09/06/20 09/06/20 09/06/20 05:10 07:40 09:03 Temperature 98.0 F Pulse Rate 99 H 91 H Pulse Rate [ Bilateral Throughout] Respiratory 18 Rate Respiratory Rate [Bilateral Throughout] Blood Pressure 136/94 138/91 O2 Sat by Pulse 99 97 Oximetry 09/06/20 09:04 Temperature Pulse Rate Pulse Rate [ 89 Bilateral Throughout] Respiratory Rate Respiratory 18 Rate [Bilateral Throughout] Blood Pressure O2 Sat by Pulse Oximetry Constitutional: no acute distress, alert Eyes: non-icteric ENT: oropharynx moist Neck: supple Effort: normal Ascultation: Bilateral: clear (anteriorly) Cardiovascular: regular rate and rhythm (no mrg) Gastrointestinal: normoactive bowel sounds, soft, non-tender, non-distended Integumentary: normal Extremities: no cyanosis, no edema, pink and warm Neurologic: normal mental status, non-focal exam, pupils equal and round Psychiatric: mood appropriate, affect normal CBC and BMP: 09/05/20 04:34 09/08/20 09:52 ABG, PT/INR, D-dimer: PT/INR, D-dimer PT 13.4 Sec. (12.2-14.9) 09/04/20 04:58 INR 0.96 (0.87-1.13) 09/04/20 04:58 Abnormal lab findings: Abnormal Labs 09/04/20 09/04/20 09/04/20 04:58 04:58 04:58 WBC 15.3 H RBC 3.27 L MCV 98 H MCH 33 H MCHC Lymph % (Auto) 8.1 L Seg Neutrophils % 85.3 H Seg Neutrophils # 13.1 H VBG pH 7.306 L Sodium 136 L Chloride Carbon Dioxide 19 L BUN Creatinine 1.3 H Glucose 219 H POC Glucose CK-MB (CK-2) CK-MB (CK-2) Rel Index 4.4 H Troponin T 0.031 H NT-Pro-B Natriuret Pep 53796 H 09/04/20 09/04/20 09/04/20 12:27 13:56 17:38 WBC RBC MCV MCH MCHC Lymph % (Auto) Seg Neutrophils % Seg Neutrophils # VBG pH Sodium Chloride Carbon Dioxide BUN Creatinine Glucose POC Glucose 138 H CK-MB (CK-2) 4.4 H CK-MB (CK-2) Rel Index Troponin T 0.090 H D 0.083 H NT-Pro-B Natriuret Pep 09/04/20 09/05/20 09/05/20 22:38 04:34 04:34 WBC RBC 3.21 L MCV MCH 33 H MCHC 35 H Lymph % (Auto) 11.1 L Seg Neutrophils % 81.6 H Seg Neutrophils # 8.8 H VBG pH Sodium Chloride Carbon Dioxide 21 L BUN 25 H Creatinine 1.8 H Glucose 137 H POC Glucose 214 H CK-MB (CK-2) CK-MB (CK-2) Rel Index Troponin T NT-Pro-B Natriuret Pep 09/05/20 09/05/20 09/05/20 12:55 16:36 20:58 WBC RBC MCV MCH MCHC Lymph % (Auto) Seg Neutrophils % Seg Neutrophils # VBG pH Sodium Chloride Carbon Dioxide BUN Creatinine Glucose POC Glucose 128 H 209 H 109 H CK-MB (CK-2) CK-MB (CK-2) Rel Index Troponin T NT-Pro-B Natriuret Pep 09/06/20 09/06/20 00:09 04:01 WBC RBC MCV MCH MCHC Lymph % (Auto) Seg Neutrophils % Seg Neutrophils # VBG pH Sodium Chloride 107.3 H Carbon Dioxide BUN 26 H Creatinine 1.6 H Glucose POC Glucose 65 L CK-MB (CK-2) CK-MB (CK-2) Rel Index Troponin T NT-Pro-B Natriuret Pep
--- NOTE | 2020-09-06 12:17 | Progress Note ---
Assessment and Plan - Patient Problems (1) Shortness of breath Current Visit: Yes Status: Acute Plan to address problem: Patient presented to the hospital with shortness of breath. Chest x-ray on presentation showed a normal-sized cardiac silhouette and bilateral mild interstitial opacities. An echocardiogram done in this hospital 2 years ago showed well-preserved left ventricular ejection fraction 50 to 55%, but it is reported that the patient was recently diagnosed with "CHF" at [facility] and that her left ventricular ejection fraction was reported at 25%. We will review a repeat echocardiogram on this presentation for left ventricular systolic function reassessment. (It will be noted that the cardiac silhouette is normal sized on chest x-ray). Subjective Date of service: 09/06/20 Interval history: Patient is comfortable, asymptomatic, no cardiac complaints. Objective Vital Signs Temp Pulse Pulse Resp Resp BP Pulse Ox 09/06/20 09:04 89 18 09/06/20 09:03 97 09/06/20 07:40 98.0 F 91 H 18 138/91 99 09/06/20 05:10 99 H 136/94 09/06/20 03:56 97.3 F L 99 H 18 136/94 97 09/06/20 01:00 99 H 09/06/20 00:00 18 96 09/05/20 23:31 98.4 F 96 H 17 141/89 98 09/05/20 21:16 97 H 122/71 09/05/20 20:04 97.6 F 97 H 18 122/71 97 09/05/20 17:00 101 H 09/05/20 16:33 99 H 18 126/77 97 09/05/20 16:00 96 09/05/20 15:20 98 H 22 09/05/20 12:30 18 96 - Physical Examination General: No Apparent Distress HEENT: Positive: Normocephaly Neck: Positive: trachea midline Cardiac: Positive: Reg Rate and Rhythm Lungs: Positive: Decreased Breath Sounds Neuro: Positive: Grossly Intact Abdomen: Positive: Soft Skin: Positive: Clear Extremities: Absent: edema - Labs and Meds Comprehensive Metabolic Panel 09/06/20 Range/Units 04:01 Sodium 143 (137-145) mmol/L Potassium 3.6 (3.6-5.0) mmol/L Chloride 107.3 H (98-107) mmol/L Carbon Dioxide 23 (22-30) mmol/L BUN 26 H (7-17) mg/dL Creatinine 1.6 H (0.6-1.2) mg/dL Glucose 68 (65-100) mg/dL Calcium 8.6 (8.4-10.2) mg/dL
[2020-09-06] MEDS: [UNRECOGNIZED DRUG - MIXTURE] PO SCH ×2 (12:50→12:51)
--- NOTE | 2020-09-06 13:00 | Ultrasound Report ---
ULTRASOUND RENAL INDICATION / CLINICAL INFORMATION: Acute kidney injury. COMPARISON: 12/25/2019. FINDINGS: RIGHT KIDNEY: Size (in cm): 10 - Echogenicity: Normal. - Cortical Thickness: Normal. - Hydronephrosis: None. - Cyst or mass: No significant abnormality. - Stones: None seen. LEFT KIDNEY: Size (in cm): 9.6 - Echogenicity: Normal. - Cortical Thickness: Normal. - Hydronephrosis: None. - Cyst or mass: 1.5 cm cyst at the midpole. - Stones: None seen. URINARY BLADDER: No significant abnormality. FREE FLUID: None. ADDITIONAL FINDINGS: None. IMPRESSION: 1. No acute sonographic abnormality of the kidneys. 2. Left renal cyst. Signer Name: Davi Reich MD Signed: 09/06/2020 12:56 PM Workstation Name: [id number]
--- NOTE | 2020-09-06 13:10 | Progress Note ---
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 ,Diabetes mellitus, hyperlipidemia, depression also recently diagnosed with congestive heart failure as of last month as patient reportedly had an MO req uiring cardiac stent that was supposedly done at [facility]. Patient presents to the hospital today and per record obtained from the EMS and the ER staff was found to have a saturation of 61% on room air was placed on nonrebreather with increased to 99%. Also 3 sublingual nitroglycerin was given by the family prior to EMS arrival. In the ER the patient is on BiPAP currently at the time of my evaluation. 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 Joyner. of [facility] cardiology. Also documented is that the patient has had negative Covid testing in the past and is up-to-date with her vaccines although I am not sure which vaccine. I have tried to call the family to get more updated information but no answer. For the record indicate that the patient had an ejection fraction at the time of diagnosis of congestive heart failure of 25%. Physical exam documented by the ED physician noted substance pedal edema. So far the patient had received some doses of Lasix in the ER. She currently on BiPAP and could not answer most of my questions as noted above. Chest x-ray reviewed shows pulmonary congestion. 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 Documentation showed that the patient has a history of CHF but was not in heart failure at that time. Considering worsening renal function we will hold Lasix we will give patient 500 cc of fluid and low-dose maintenance fluid to KVO and recheck renal function in a.m. Will await pulmonary consultation for further evaluation of this patient. May be underlining COPD in the differentials. 09/06: Continue supportive care. Nephrology consulted. Renal functions show some improvement but is unclear to me if this is secondary to the fluid I gave yesterday versus the Lasix that was restarted with fluid being discontinued. Pulmonary doubts that there may be COPD in this patient I do not disagree with that but will await cardiology completion of work-up to further evaluate congestive heart failure aspiration patient does not have any edema in the lower extremities. We will see if cardiology is in agreement with inotropic agent. I have called and updated family- Daughter- Soraida Renal ultrasound unremarkable Per family, patient has had multiple episode of difficulty breathing They also informed me that STENT was put on the patient hence the Brilanta and ASA Patients weight is around 139-140 Leukocytosis improving. Patient with poor appetite per family Elevated troponin likely secondary to type II NSTEMI troponin at the [facility] facility was 0.049 Covid test was negative Start CHF protocol including, beta-kenyatta, Lasix therapy, monitor electrolytes, daily weights and strict ins and outs Insulin for diabetes mellitus Continue BiPAP and wean as tolerated Deburring Technician and pulmonary consultation Monitor renal function We will give a full dose of Lovenox 1 time until cardiology evaluates the patient to determine if we treated an NSTEMI versus elevated troponin secondary to CHF Obtain echocardiogram ER doctor had requested records from [facility] [place] will await and follow those records. DVT and GI prophylaxis We will try again to get family History Interval history: Patient seen and examined now down to 3 L nasal cannula. Hospitalist Physical - Physical exam Narrative exam: VITAL SIGNS: Reviewed. GENERAL: The patient appears normally developed, obese on the nasal cannula vital signs as documented. HEAD: No signs of head trauma. EYES: Pupils are equal. Extraocular motions intact. EARS: Hearing grossly intact. MOUTH: Oropharynx is normal. NECK: No adenopathy, no JVD. CHEST: Chest with diminished breath sounds bilaterally. No wheezes, rales, or rhonchi. CARDIAC: Regular rate and rhythm. S1 and S2, without murmurs, gallops, or rubs. VASCULAR: No Edema. Peripheral pulses normal and equal in all extremities. ABDOMEN: Soft, non tender and non distended. No rebound or guarding, and no masses palpated. Bowel Sounds normal. MUSCULOSKELETAL: Good range of motion of all major joints. Extremities without clubbing, cyanosis Or edema. NEUROLOGIC EXAM: Alert and oriented x3. No focal sensory or motor deficits noted. Still lethargic but improved PSYCHIATRIC: Mood normal. SKIN: detail exam as documented in skin assessment - Constitutional Vitals: Temp Pulse Resp BP Pulse Ox 98.0 F 89 18 138/91 97 09/06/20 07:40 09/06/20 09:04 09/06/20 12:00 09/06/20 07:40 09/06/20 09:03 General appearance: Present: no acute distress HEART Score - HEART Score Troponin: Troponin T 0.083 ng/mL (0.00-0.029) H 09/04/20 17:38 Results - Labs CBC & Chem 7: 09/05/20 04:34 09/06/20 04:01 Labs: Laboratory Last Values WBC 10.8 K/mm3 (4.5-11.0) 09/05/20 04:34 RBC 3.21 M/mm3 (3.65-5.03) L 09/05/20 04:34 Hgb 10.7 gm/dl (10.1-14.3) 09/05/20 04:34 Hct 31.0 % (30.3-42.9) 09/05/20 04:34 MCV 97 fl (79-97) 09/05/20 04:34 MCH 33 pg (28-32) H 09/05/20 04:34 MCHC 35 % (30-34) H 09/05/20 04:34 RDW 14.6 % (13.2-15.2) 09/05/20 04:34 Plt Count 351 K/mm3 (140-440) 09/05/20 04:34 Lymph % (Auto) 11.1 % (13.4-35.0) L 09/05/20 04:34 [place] % (Auto) 7.2 % (0.0-7.3) 09/05/20 04:34 Eos % (Auto) 0.0 % (0.0-4.3) 09/05/20 04:34 Baso % (Auto) 0.1 % (0.0-1.8) 09/05/20 04:34 Lymph # (Auto) 1.2 K/mm3 (1.2-5.4) 09/05/20 04:34 [place] # (Auto) 0.8 K/mm3 (0.0-0.8) 09/05/20 04:34 Eos # (Auto) 0.0 K/mm3 (0.0-0.4) 09/05/20 04:34 Baso # (Auto) 0.0 K/mm3 (0.0-0.1) 09/05/20 04:34 Seg Neutrophils % 81.6 % (40.0-70.0) H 09/05/20 04:34 Seg Neutrophils # 8.8 K/mm3 (1.8-7.7) H 09/05/20 04:34 PT 13.4 Sec. (12.2-14.9) 09/04/20 04:58 INR 0.96 (0.87-1.13) 09/04/20 04:58 APTT 25.7 Sec. (24.2-36.6) 09/04/20 04:58 VBG pH 7.306 (7.320-7.420) L 09/04/20 04:58 Sodium 143 mmol/L (137-145) 09/06/20 04:01 Potassium 3.6 mmol/L (3.6-5.0) 09/06/20 04:01 Chloride 107.3 mmol/L (98-107) H 09/06/20 04:01 Carbon Dioxide 23 mmol/L (22-30) 09/06/20 04:01 Anion Gap 16 mmol/L 09/06/20 04:01 BUN 26 mg/dL (7-17) H 09/06/20 04:01 Creatinine 1.6 mg/dL (0.6-1.2) H 09/06/20 04:01 Estimated GFR 37 ml/min 09/06/20 04:01 BUN/Creatinine Ratio 16 % 09/06/20 04:01 Glucose 68 mg/dL (65-100) 09/06/20 04:01 POC Glucose 93 mg/dL (70-105) 09/06/20 07:34 Calcium 8.6 mg/dL (8.4-10.2) 09/06/20 04:01 Magnesium 1.90 mg/dL (1.7-2.3) 09/04/20 08:33 Total Creatine Kinase 70 units/L (30-135) 09/04/20 12:27 CK-MB (CK-2) 4.4 ng/mL (0.0-4.0) H 09/04/20 12:27 CK-MB (CK-2) Rel Index 4.4 (0-4) H 09/04/20 04:58 Troponin T 0.083 ng/mL (0.00-0.029) H 09/04/20 17:38 NT-Pro-B Natriuret Pep 99335 pg/mL (0-900) H 09/04/20 04:58 Triglycerides 84 mg/dL (2-149) 09/04/20 04:58 Cholesterol 112 mg/dL (50-199) 09/04/20 04:58 LDL Cholesterol Direct 56 mg/dL (50-130) 09/04/20 04:58 HDL Cholesterol 46 mg/dL (40-59) 09/04/20 04:58 Cholesterol/HDL Ratio 2.43 % 09/04/20 04:58 Urine Color Yellow (Yellow) 09/04/20 Unknown Urine Turbidity Slightly-cloudy (Clear) 09/04/20 Unknown Urine pH 5.0 (5.0-7.0) 09/04/20 Unknown Ur Specific [place] 1.009 (1.003-1.030) 09/04/20 Unknown Urine Protein <15 mg/dl mg/dL (Negative) 09/04/20 Unknown Urine Glucose (UA) Neg mg/dL (Negative) 09/04/20 Unknown Urine Ketones Neg mg/dL (Negative) 09/04/20 Unknown Urine Blood Neg (Negative) 09/04/20 Unknown Urine Nitrite Neg (Negative) 09/04/20 Unknown Urine Bilirubin Neg (Negative) 09/04/20 Unknown Urine Urobilinogen < 2.0 mg/dL (<2.0) 09/04/20 Unknown Ur Leukocyte Esterase Tr (Negative) 09/04/20 Unknown Urine WBC (Auto) 1.0 /HPF (0.0-6.0) 09/04/20 Unknown Urine RBC (Auto) 3.0 /HPF (0.0-6.0) 09/04/20 Unknown U Epithel Cells (Auto) 1.0 /HPF (0-13.0) 09/04/20 Unknown Urine Bacteria (Auto) 1+ /HPF (Negative) 09/04/20 Unknown Coronavirus (PCR) Negative (Negative) 09/04/20 10:00 Fofana/IV: Voiding Method External Female Catheter Active Medications - Current Medications Current Medications: Generic Name Dose Route Start Last Admin Trade Name Freq PRN Reason Stop Dose Admin Acetaminophen 650 mg 09/04/20 09:00 Acetaminophen 325 Mg Tab PO Q4H PRN Pain MILD(1-3)/Fever >100.5/KYLE Albuterol 2.5 mg 09/04/20 08:23 Albuterol 2.5 Mg/3 Ml Nebu IH Q3HRT PRN Shortness Of Breath Albuterol/Ipratropium 1 ampul 09/04/20 14:00 09/06/20 09:00 Ipratropium/Albuterol Sulfate 3 Ml Ampul.Neb IH 1 ampul Q6HRT SHAYAN Administration Aspirin 81 mg 09/05/20 10:00 09/06/20 09:44 Aspirin 81 Mg Tab Chew PO 81 mg QDAY SHAYAN Administration Atorvastatin Calcium 40 mg 09/04/20 22:00 09/05/20 21:17 Atorvastatin 40 Mg Tab PO 40 mg QHS SHAYAN Administration Budesonide 0.5 mg 09/04/20 09:00 09/06/20 09:00 Budesonide 0.5 Mg/2 Ml Nebu IH 0.5 mg Q12HRT SHAYAN Administration Citalopram Hydrobromide 20 mg 09/04/20 10:00 09/06/20 09:44 Citalopram 20 Mg Tab PO 20 mg QDAY SHAYAN Administration Dextrose 50 ml 09/04/20 09:00 Dextrose 50% In Water (25gm) 50 Ml Syringe IV Q30MIN PRN Hypoglycemia Protocol Famotidine 20 mg 09/07/20 10:00 Famotidine 20 Mg Tab PO DAILY SHAYAN Furosemide 40 mg 09/05/20 18:00 09/06/20 05:10 Furosemide 40 Mg/4 Ml Inj IV 40 mg 0600,1800 SHAYAN Administration Hydralazine HCl 25 mg 09/04/20 14:00 09/06/20 05:10 Hydralazine 25 Mg Tab PO 25 mg Q8HR SHAYAN Administration Insulin Glargine 15 units 09/04/20 22:00 09/05/20 21:17 Insulin Glargine 100 Units/Ml SUB-Q 15 units QHS SHAYNA Administration Insulin Human Lispro 0 unit 09/04/20 11:30 09/06/20 12:50 Insulin Lispro 100 Unit/Ml SUB-Q Not Given ACHS [facility] Protocol Isosorbide Mononitrate 30 mg 09/04/20 10:00 09/06/20 09:44 Isosorbide Mononitrate Er 30 Mg Tab PO 30 mg DAILY [facility] Administration Metoclopramide HCl 5 mg 09/04/20 10:53 Metoclopramide 10 Mg/2 Ml Inj IV Q6H PRN Nausea Metoprolol Succinate 50 mg 09/04/20 10:00 09/06/20 09:44 Metoprolol Succinate Xl 50 Mg Tab PO 50 mg QDAY [facility] Administration Miscellaneous Medication 1 drop 09/04/20 10:00 09/04/20 11:04 Cyclosporine [Restasis 0.05%] OP Not Given BID [facility] Multivitamins/Minerals 1 each 09/07/20 10:00 Multivitamins,Ther W-Minerals Tab PO QDAY [facility] Nitroglycerin 0.4 mg 09/04/20 08:28 Nitroglycerin 0.4 Mg Tab Subl SL Q5MIN PRN Chest Pain Nystatin 1 applic 09/04/20 10:00 09/06/20 09:45 Nystatin Cream 15 Gm Tube TP Not Given BID [facility] Ondansetron HCl 4 mg 09/04/20 08:23 09/04/20 23:11 Ondansetron 4 Mg/2 Ml Inj IV 4 mg Q4H PRN Administration Nausea And Vomiting Oxycodone/Acetaminophen 1 tab 09/04/20 10:00 Oxycodone /Acetaminophen 5-325mg Tab PO Q6H PRN Pain, Moderate (4-6) Sodium Chloride 10 ml 09/04/20 10:00 09/06/20 09:45 Sodium Chloride 0.9% 10 Ml Flush Syringe IV 10 ml BID SHAYAN Administration Sodium Chloride 10 ml 09/04/20 08:23 Sodium Chloride 0.9% 10 Ml Flush Syringe IV PRN PRN LINE FLUSH Ticagrelor 90 mg 09/04/20 10:00 09/06/20 09:44 Ticagrelor 90 Mg Tab PO 90 mg BID [facility] Administration Nutrition/Malnutrition Assess - Dietary Evaluation Nutrition/Malnutrition Findings: Nutrition Notes Start: 09/04/20 12:12 Freq: Status: Active Protocol: Document 09/05/20 09:40 NICOLAS (Rec: 09/05/20 09:42 NICOLAS [id number]) Nutrition Notes Need for Assessment generated from: MD Order,Education Initial or Follow up Assessment Current Diagnosis Diabetes,Heart Failure,Stroke Current Diet Cardiac, Consistent CHO Labs/Tests BUN 25 Cr 1.8 Pertinent Medications NS at 42 ml/hr Height 5 ft 4 in Weight 65.4 kg [place] Body Weight (kg) 54.54 BMI 24.7 Weight Status Appropriate Subjective/Other Information MD order for diet education. Pt not appropriate for diet education. Pt nnot eating well - 35% of breakfast eaten. Burn Absent Trauma Absent GI Symptoms None Current % PO Poor (25-49%) Minimum of two criteria No physical signs of malnutrition #1 Nutrition Diagnosis Inadequate energy intake Etiology advanced age As Evidenced by Signs and Symptoms pt eating 35% of meals Is patient on ventilator? No Is Patient Ambulatory and/or Out of Bed No REE-([facility]-confined to bed) 1308.180 Calculation Used for Recommendations [facility] Additional Notes Protein: (1-1.2g/kg) 65-78g Fluid: 1 ml/kcal or per MD Nutrition Intervention Change Diet Order: continue Add Supplement/Snack (indicate name/kcal Glucerna TID /protein ) Provides kCal: 660 Provides Protein (gm) 30 Goal #1 Meet at least 75% of protein and energy needs via PO and ONS Anticipated Discharge Needs: Cardiac, consistent CHO Follow-Up By: 09/07/20 Additional Comments FU for intakes and ONS tolerance
[2020-09-06 17:15] LABS: Creatinine,Urine 48.3 mg/dL (0.1-20.0)
--- NOTE | 2020-09-06 20:58 | XRay Report ---
CHEST 1 VIEW 09/06/2020 7:51 PM INDICATION / CLINICAL INFORMATION: dyspnea. COMPARISON: 09/04/2020 FINDINGS: SUPPORT DEVICES: None. HEART / MEDIASTINUM: Stable. LUNGS / PLEURA: Bilateral interstitial opacities have improved since the prior exam. No pleural effus ion. No pneumothorax. ADDITIONAL FINDINGS: No significant additional findings. IMPRESSION: 1. Improved interstitial edema when compared to 09/04/2020. Signer Name: Octavio Ness MD Signed: 09/06/2020 8:54 PM Workstation Name: [id number]
[2020-09-06] MEDS: INSULIN GLARGINE 100 UNITS/ML SUB-Q SCH (21:32)
[2020-09-07] MEDS: IPRATROPIUM/ALBUTEROL SULFATE 3 ML AMPUL.NEB IH SCH ×4 (02:23→21:26)
--- NOTE | 2020-09-07 05:08 | Progress Note ---
Assessment and Plan 84 y/o female with what appears to be volume overload. Follow up echo Cards feels that heart size is normal on CXR Defer diuresis to them Subjective Date of service: 09/07/20 Interval history: No acute events. Echo done but not read yet. negative 1100 on yesterday. Objective Vital Signs - 12hr 09/06/20 09/06/20 09/06/20 19:15 20:25 20:27 Temperature 99.0 F Pulse Rate 93 H 93 H Pulse Rate [ Bilateral Throughout] Respiratory 18 18 Rate Respiratory Rate [Bilateral Throughout] Blood Pressure 145/97 O2 Sat by Pulse 99 Oximetry 09/06/20 09/06/20 09/06/20 21:11 21:12 21:33 Temperature Pulse Rate 93 H Pulse Rate [ 94 H Bilateral Throughout] Respiratory Rate Respiratory 18 Rate [Bilateral Throughout] Blood Pressure O2 Sat by Pulse 100 Oximetry 09/06/20 09/07/20 23:23 03:44 Temperature 99.4 F 98.5 F Pulse Rate 95 H 94 H Pulse Rate [ Bilateral Throughout] Respiratory 18 18 Rate Respiratory Rate [Bilateral Throughout] Blood Pressure 139/77 146/100 O2 Sat by Pulse 99 100 Oximetry Constitutional: no acute distress, alert Eyes: non-icteric ENT: oropharynx moist Neck: supple Effort: normal Ascultation: Bilateral: clear (anteriorly) Cardiovascular: regular rate and rhythm (no mrg) Gastrointestinal: normoactive bowel sounds, soft, non-tender, non-distended Integumentary: normal Extremities: no cyanosis, no edema, pink and warm Neurologic: normal mental status, non-focal exam, pupils equal and round Psychiatric: mood appropriate, affect normal CBC and BMP: 09/05/20 04:34 09/08/20 09:52 ABG, PT/INR, D-dimer: PT/INR, D-dimer PT 13.4 Sec. (12.2-14.9) 09/04/20 04:58 INR 0.96 (0.87-1.13) 09/04/20 04:58 Abnormal lab findings: Abnormal Labs 09/04/20 09/04/20 09/04/20 04:58 04:58 04:58 WBC 15.3 H RBC 3.27 L MCV 98 H MCH 33 H MCHC Lymph % (Auto) 8.1 L Seg Neutrophils % 85.3 H Seg Neutrophils # 13.1 H VBG pH 7.306 L Sodium 136 L Chloride Carbon Dioxide 19 L BUN Creatinine 1.3 H Glucose 219 H POC Glucose CK-MB (CK-2) CK-MB (CK-2) Rel Index 4.4 H Troponin T 0.031 H NT-Pro-B Natriuret Pep 78069 H Urine Creatinine 09/04/20 09/04/20 09/04/20 12:27 13:56 17:38 WBC RBC MCV MCH MCHC Lymph % (Auto) Seg Neutrophils % Seg Neutrophils # VBG pH Sodium Chloride Carbon Dioxide BUN Creatinine Glucose POC Glucose 138 H CK-MB (CK-2) 4.4 H CK-MB (CK-2) Rel Index Troponin T 0.090 H D 0.083 H NT-Pro-B Natriuret Pep Urine Creatinine 09/04/20 09/05/20 09/05/20 22:38 04:34 04:34 WBC RBC 3.21 L MCV MCH 33 H MCHC 35 H Lymph % (Auto) 11.1 L Seg Neutrophils % 81.6 H Seg Neutrophils # 8.8 H VBG pH Sodium Chloride Carbon Dioxide 21 L BUN 25 H Creatinine 1.8 H Glucose 137 H POC Glucose 214 H CK-MB (CK-2) CK-MB (CK-2) Rel Index Troponin T NT-Pro-B Natriuret Pep Urine Creatinine 09/05/20 09/05/20 09/05/20 12:55 16:36 20:58 WBC RBC MCV MCH MCHC Lymph % (Auto) Seg Neutrophils % Seg Neutrophils # VBG pH Sodium Chloride Carbon Dioxide BUN Creatinine Glucose POC Glucose 128 H 209 H 109 H CK-MB (CK-2) CK-MB (CK-2) Rel Index Troponin T NT-Pro-B Natriuret Pep Urine Creatinine 09/06/20 09/06/20 09/06/20 00:09 04:01 11:42 WBC RBC MCV MCH MCHC Lymph % (Auto) Seg Neutrophils % Seg Neutrophils # VBG pH Sodium Chloride 107.3 H Carbon Dioxide BUN 26 H Creatinine 1.6 H Glucose POC Glucose 65 L 121 H CK-MB (CK-2) CK-MB (CK-2) Rel Index Troponin T NT-Pro-B Natriuret Pep Urine Creatinine 09/06/20 09/06/20 09/06/20 16:39 20:05 Unknown WBC RBC MCV MCH MCHC Lymph % (Auto) Seg Neutrophils % Seg Neutrophils # VBG pH Sodium Chloride Carbon Dioxide BUN Creatinine Glucose POC Glucose 143 H 123 H CK-MB (CK-2) CK-MB (CK-2) Rel Index Troponin T NT-Pro-B Natriuret Pep Urine Creatinine 48.3 H
[2020-09-07 06:07] LABS: Calcium 8.4 mg/dL (8.4-10.2)
[2020-09-07] MEDS: hydrALAZINE 25 MG TAB PO SCH (06:18)
[2020-09-07] MEDS: BUDESONIDE 0.5 MG/2 ML NEBU IH SCH ×2 (07:41→21:26)
--- NOTE | 2020-09-07 08:57 | Cat Scan Report ---
CT HEAD WITHOUT CONTRAST INDICATION / CLINICAL INFORMATION: Altered Mental Status. TECHNIQUE: Axial imaging performed from the skull apex through the skull base without the use of cont rast. Sagittal and coronal reformatted images. All CT scans at this location are performed using CT dose reduction for ALARA by means of automated exposure control. COMPARISON: 05/02/2020 FINDINGS: CEREBRAL PARENCHYMA: No acute parenchymal abnormality is appreciated. 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 Chronic lacunar infarcts in both basal gang bessie are also stable. HEMORRHAGE: None. EXTRA-AXIAL SPACES: Normal in size and morphology for the patient's age. VENTRICULAR SYSTEM: Normal in size and morphology for the patient's age. MIDLINE SHIFT OR HERNIATION: None. CEREBELLUM / BRAINSTEM: No significant abnormality. CALVARIUM: No significant abnormality. ORBITS: Normal as visualized. PARANASAL SINUSES / MASTOID AIR CELLS: Normal as visualized. SOFT TISSUES of HEAD: No significant abnormality. ADDITIONAL FINDINGS: None. IMPRESSION: No acute intracranial abnormality. Chronic findings as described which are unchanged since 05/02/2020. Signer Name: Behzad Bennett Jr, MD Signed: 09/07/2020 8:52 AM Workstation Name: [id number]
[2020-09-07] MEDS: TICAGRELOR 90 MG TAB PO SCH ×2 (09:21→22:56)
[2020-09-07] MEDS: INSULIN LISPRO 100 UNIT/ML SUB-Q SCH ×4 (09:21→22:48)
[2020-09-07] MEDS: MULTIVITAMINS,THER W-MINERALS TAB PO SCH (09:22)
[2020-09-07] MEDS: METOPROLOL SUCCINATE XL 50 MG TAB PO SCH (09:22)
[2020-09-07] MEDS: CITALOPRAM 20 MG TAB PO SCH (09:22)
[2020-09-07] MEDS: ASPIRIN 81 MG TAB CHEW PO SCH (09:22)
[2020-09-07] MEDS: FAMOTIDINE 20 MG TAB PO SCH (09:22)
--- NOTE | 2020-09-07 11:06 | Progress Note ---
Assessment and Plan - Patient Problems (1) Acute kidney injury Current Visit: Yes Status: Acute Plan to address problem: Acute kidney injury in setting of acute cardiorenal syndrome worsening probably related to the diuretics. 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 Kidney function is unchanged. Resume furosemide but decrease to daily. Follow- up electrolytes and renal function. Adjust medications to GFR less than 30 mls per minute. 2 g sodium renal diet (2) Acute on chronic systolic heart failure Current Visit: Yes Status: Acute Plan to address problem: Symptoms have improved. Chest x-ray still shows bilateral interstitial pulmonary edema though improved. Resume Lasix but decrease to 40 mg daily intravenously (3) Hypertension Current Visit: Yes Status: Acute Plan to address problem: Blood pressure is improving. Follow-up blood pressure on current medications. (4) Type II diabetes mellitus Current Visit: No Status: Chronic Plan to address problem: Blood sugar management by primary attending (5) Anemia Current Visit: Yes Status: Acute Plan to address problem: Follow-up hemoglobin (6) Hyperlipidemia Current Visit: No Status: Chronic Plan to address problem: Continue hyperlipidemic agents Subjective Date of service: 09/07/20 Principal diagnosis: Acute kidney injury Interval history: Patient seen lying in bed. She has no complaints. She appears a bit drowsy Objective - Exam Narrative Exam: Frail elderly lady lying in bed in no acute distress HEENT: NCAT, status post cataract extraction Neck: Supple, no venous distention CVS: S1S2 RRR with no murmur, rub or gallop Chest: Clear to auscultation Abdomen: Protuberant, soft, nontender, no organomegaly, bowel sounds are present Extremities: No edema Genitourinary deferred Skin warm and dry Neuro: Looks dull, no focal deficits - Vital Signs Vital signs: Vital Signs - 12hr 09/06/20 09/07/20 09/07/20 23:23 03:44 06:53 Temperature 99.4 F 98.5 F 97.6 F Pulse Rate 95 H 94 H 90 Pulse Rate [ Bilateral Throughout] Respiratory 18 18 16 Rate Respiratory Rate [Bilateral Throughout] Blood Pressure 139/77 146/100 130/76 O2 Sat by Pulse 99 100 100 Oximetry 09/07/20 09/07/20 09/07/20 07:41 09:22 09:25 Temperature Pulse Rate 90 Pulse Rate [ 90 Bilateral Throughout] Respiratory Rate Respiratory 16 Rate [Bilateral Throughout] Blood Pressure 130/76 O2 Sat by Pulse 100 Oximetry - Lab 09/05/20 04:34 09/07/20 04:52 Most recent lab results Calcium 8.4 mg/dL (8.4-10.2) 09/07/20 04:52 Magnesium 1.70 mg/dL (1.7-2.3) 09/07/20 04:52 Urine Creatinine 48.3 mg/dL (0.1-20.0) H 09/06/20 Unknown Urine Total Protein 10 mg/dL (5-11.8) 09/06/20 Unknown Medications & Allergies - Medications Allergies/Adverse Reactions: Allergies No Known Allergies Allergy (Verified 09/04/20 05:14) Home Medications: Home Medications Medication Instructions Recorded Confirmed Last Taken Type Glimepiride [Amaryl] 2 mg PO DAILY 05/27/18 09/04/20 05/27/18 20:00 History Aspirin [Aspirin BABY CHEW TAB] 81 mg PO QDAY #30 tab.chew 04/17/20 09/04/20 Unknown Rx AtorvaSTATin [Lipitor] 40 mg PO QHS #30 tablet 04/17/20 09/04/20 Unknown Rx LORazepam [Lorazepam] 0.5 mg PO QHS PRN 05/02/20 09/04/20 Unknown History Citalopram [celeXA] 20 mg PO QDAY 09/04/20 09/04/20 Unknown History Furosemide [Lasix] 20 mg PO QDAY PRN 09/04/20 09/04/20 Unknown History Isosorbide Mononitrate [Isosorbide 30 mg PO DAILY 09/04/20 09/04/20 Unknown History Mononitrate ER] Losartan [Cozaar] 25 mg PO QDAY 09/04/20 09/04/20 Unknown History Metoprolol Succinate [Kapspargo 50 mg PO DAILY 09/04/20 09/04/20 Unknown History Sprinkle] Nitroglycerin [Nitrostat] 0.4 mg SL Q5MIN PRN 09/04/20 09/04/20 Unknown History Nystatin Cream [Mycostatin Cream] 1 applic TP BID 09/04/20 09/04/20 Unknown History Ticagrelor [Brilinta] 90 mg PO BID 09/04/20 09/04/20 Unknown History Vit C/E/Zn/Coppr/Lutein/Zeaxan 1 each PO DAILY 09/04/20 09/04/20 Unknown History [Preservision Areds 2 Softgel] cycloSPORINE [Restasis 0.05%] 1 drop OP BID 09/04/20 09/04/20 Unknown History hydrALAZINE [Apresoline] 25 mg PO Q8HR 09/04/20 09/04/20 Unknown History metFORMIN [Glucophage] 500 mg PO BID 09/04/20 09/04/20 Unknown History Active Medications: Generic Name Dose Route Start Last Admin Trade Name Freq PRN Reason Stop Dose Admin Acetaminophen 650 mg 09/04/20 09:00 Acetaminophen 325 Mg Tab PO Q4H PRN Pain MILD(1-3)/Fever >100.5/KYLE Albuterol 2.5 mg 09/04/20 08:23 Albuterol 2.5 Mg/3 Ml Nebu IH Q3HRT PRN Shortness Of Breath Albuterol/Ipratropium 1 ampul 09/04/20 14:00 09/07/20 07:41 Ipratropium/Albuterol Sulfate 3 Ml Ampul.Neb IH 1 ampul Q6HRT SHAYAN Administration Aspirin 81 mg 09/05/20 10:00 09/07/20 09:22 Aspirin 81 Mg Tab Chew PO 81 mg QDAY SHAYAN Administration Atorvastatin Calcium 40 mg 09/04/20 22:00 09/06/20 21:33 Atorvastatin 40 Mg Tab PO 40 mg QHS SHAYAN Administration Budesonide 0.5 mg 09/04/20 09:00 09/07/20 07:41 Budesonide 0.5 Mg/2 Ml Nebu IH 0.5 mg Q12HRT SHAYAN Administration Citalopram Hydrobromide 20 mg 09/04/20 10:00 09/07/20 09:22 Citalopram 20 Mg Tab PO 20 mg QDAY SHAYAN Administration Dextrose 50 ml 09/04/20 09:00 Dextrose 50% In Water (25gm) 50 Ml Syringe IV Q30MIN PRN Hypoglycemia Protocol Famotidine 20 mg 09/07/20 10:00 09/07/20 09:22 Famotidine 20 Mg Tab PO 20 mg DAILY SHAYAN Administration Hydralazine HCl 25 mg 09/04/20 14:00 09/07/20 06:18 Hydralazine 25 Mg Tab PO 25 mg Q8HR [facility] Administration Insulin Glargine 15 units 09/04/20 22:00 09/06/20 21:32 Insulin Glargine 100 Units/Ml SUB-Q Not Given QHS [facility] Insulin Human Lispro 0 unit 09/04/20 11:30 09/07/20 09:21 Insulin Lispro 100 Unit/Ml SUB-Q Not Given ACHS [facility] Protocol Isosorbide Mononitrate 30 mg 09/04/20 10:00 09/07/20 09:22 Isosorbide Mononitrate Er 30 Mg Tab PO 30 mg DAILY SHAYAN Administration Metoclopramide HCl 5 mg 09/04/20 10:53 Metoclopramide 10 Mg/2 Ml Inj IV Q6H PRN Nausea Metoprolol Succinate 50 mg 09/04/20 10:00 09/07/20 09:22 Metoprolol Succinate Xl 50 Mg Tab PO 50 mg QDAY [facility] Administration Miscellaneous Medication 1 drop 09/04/20 10:00 09/04/20 11:04 Cyclosporine [Restasis 0.05%] OP Not Given BID [facility] Multivitamins/Minerals 1 each 09/07/20 10:00 09/07/20 09:22 Multivitamins,Ther W-Minerals Tab PO 1 each QDAY [facility] Administration Nitroglycerin 0.4 mg 09/04/20 08:28 Nitroglycerin 0.4 Mg Tab Subl SL Q5MIN PRN Chest Pain Nystatin 1 applic 09/04/20 10:00 09/06/20 21:31 Nystatin Cream 15 Gm Tube TP Not Given BID [facility] Ondansetron HCl 4 mg 09/04/20 08:23 09/04/20 23:11 Ondansetron 4 Mg/2 Ml Inj IV 4 mg Q4H PRN Administration Nausea And Vomiting Oxycodone/Acetaminophen 1 tab 09/04/20 10:00 Oxycodone /Acetaminophen 5-325mg Tab PO Q6H PRN Pain, Moderate (4-6) Sodium Chloride 10 ml 09/04/20 10:00 09/07/20 09:33 Sodium Chloride 0.9% 10 Ml Flush Syringe IV 10 ml BID SHAYAN Administration Sodium Chloride 10 ml 09/04/20 08:23 Sodium Chloride 0.9% 10 Ml Flush Syringe IV PRN PRN LINE FLUSH Ticagrelor 90 mg 09/04/20 10:00 09/07/20 09:21 Ticagrelor 90 Mg Tab PO 90 mg BID SHAYAN Administration
--- NOTE | 2020-09-07 11:10 | Progress Note ---
Assessment and Plan Acute systolic heart failure Predominately Nonischemic cardiomyopathy LVEF 20-25% CAD s/p PCI of the proximal Ramus using [place] drug eluting stent at [facility] 07/2020 on Brilinta and aspirin Acute kidney injury Prior CVA with aphasia Hypertension Diabetes Continue guideline directed medical therapy for predominately nonischemic cardiomyopathy, systolic heart failure, and coronary artery disease. Subjective Date of service: 09/07/20 Interval history: Patient is resting in bed. No distress noted. Objective Vital Signs Temp Pulse Pulse Resp Resp BP Pulse Ox 09/07/20 09:25 100 09/07/20 09:22 90 130/76 09/07/20 07:41 90 16 09/07/20 06:53 97.6 F 90 16 130/76 100 09/07/20 03:44 98.5 F 94 H 18 146/100 100 09/06/20 23:23 99.4 F 95 H 18 139/77 99 09/06/20 21:33 93 H 09/06/20 21:12 100 09/06/20 21:11 94 H 18 09/06/20 20:27 18 09/06/20 20:25 93 H 09/06/20 19:15 99.0 F 93 H 18 145/97 99 09/06/20 16:50 98 F 09/06/20 15:30 93 H 09/06/20 14:47 87 18 133/77 100 09/06/20 14:11 86 18 09/06/20 12:00 18 - Physical Examination General: No Apparent Distress HEENT: Positive: Normocephaly Neck: Positive: trachea midline Cardiac: Positive: Reg Rate and Rhythm Lungs: Positive: Decreased Breath Sounds - Labs and Meds Comprehensive Metabolic Panel 09/07/20 Range/Units 04:52 Sodium 141 (137-145) mmol/L Potassium 3.8 (3.6-5.0) mmol/L Chloride 101.8 (98-107) mmol/L Carbon Dioxide 27 (22-30) mmol/L BUN 23 H (7-17) mg/dL Creatinine 1.6 H (0.6-1.2) mg/dL Glucose 114 H (65-100) mg/dL Calcium 8.4 (8.4-10.2) mg/dL
--- NOTE | 2020-09-07 12:15 | Progress Note ---
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 ,Diabetes mellitus, hyperlipidemia, depression also recently diagnosed with congestive heart failure as of last month as patient reportedly had an SD req uiring cardiac stent that was supposedly done at [facility]. Patient presents to the hospital today and per record obtained from the EMS and the ER staff was found to have a saturation of 61% on room air was placed on nonrebreather with increased to 99%. Also 3 sublingual nitroglycerin was given by the family prior to EMS arrival. In the ER the patient is on BiPAP currently at the time of my evaluation. 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 Joyner. of [facility], [place] [facility]. Also documented is that the patient has had negative Covid testing in the past and is up-to-date with her vaccines although I am not sure which vaccine. I have tried to call the family to get more updated information but no answer. For the record indicate that the patient had an ejection fraction at the time of diagnosis of congestive heart failure of 25%. Physical exam documented by the ED physician noted substance pedal edema. So far the patient had received some doses of Lasix in the ER. She currently on BiPAP and could not answer most of my questions as noted above. Chest x-ray reviewed shows pulmonary congestion. Acute hypoxic respiratory failure Congestive heart failure acute on chronic likely systolic 20 to 25% CAD s/p PCI Hypertension Acute kidney injury likely vasomotor nephropathy Elevated troponin could be secondary to congestive heart failure doubt none ST elevated SD we will treat as such Leukocytosis Diabetes mellitus Depression History of CVA Elevated troponin likely secondary to type II NSTEMI troponin at the [facility] facility was 0.049 Covid test was negative Start CHF protocol including, beta-kenyatta, Lasix therapy, monitor electrolytes, daily weights and strict ins and outs Insulin for diabetes mellitus Continue BiPAP and wean as tolerated Marketing Area Manager and pulmonary consultation Monitor renal function We will give a full dose of Lovenox 1 time until cardiology evaluates the patient to determine if we treated an NSTEMI versus elevated troponin secondary to CHF Obtain echocardiogram ER doctor had requested records from [facility] will await and follow those records. DVT and GI prophylaxis We will try again to get family 09/05: I have reviewed records from [facility] it appears that while the patient was then started on IV Lasix patient went due to worsening renal failure initial creatinine was 1.4 at a time patient was given some fluids for correction. Documentation showed that the patient has a history of CHF but was not in heart failure at that time. Considering worsening renal function we will hold Lasix we will give patient 500 cc of fluid and low-dose maintenance fluid to KVO and recheck renal function in a.m. Will await pulmonary consultation for further evaluation of this patient. May be underlining COPD in the differentials. 09/06: Continue supportive care. Nephrology consulted. Renal functions show some improvement but is unclear to me if this is secondary to the fluid I gave yesterday versus the Lasix that was restarted with fluid being discontinued. Pulmonary doubts that there may be COPD in this patient I do not disagree with that but will await cardiology completion of work-up to further evaluate congestive heart failure aspiration patient does not have any edema in the lower extremities. We will see if cardiology is in agreement with inotropic agent. I have called and updated family- Daughter- Soraida Renal ultrasound unremarkable Per family, patient has had multiple episode of difficulty breathing They also informed me that STENT was put on the patient hence the Brilanta and A SA Patients weight is around 139-140 Leukocytosis improving. Patient with poor appetite per family History Interval history: I have seen and examined the patient this morning at the bedside Patient's chart and medications reviewed Patient has no new complaints shortness of breath significantly improved Alert and awake responding to simple questions vital signs noted Hospitalist Physical - Constitutional Vitals: Temp Pulse Resp BP Pulse Ox 97.6 F 90 16 130/76 100 09/07/20 06:53 09/07/20 09:22 09/07/20 07:41 09/07/20 09:22 09/07/20 09:25 General appearance: Present: no acute distress, well-nourished - EENT Eyes: Present: PERRL, EOM intact - Neck Neck: Present: supple, normal ROM - Respiratory Respiratory effort: normal Respiratory: bilateral: diminished, rales, negative: rhonchi, wheezing - Cardiovascular Rhythm: regular Heart Sounds: Present: S1 & S2 - Extremities Extremities: no ischemia, No edema - Abdominal General gastrointestinal: soft, non-tender, non-distended, normal bowel sounds - Integumentary Integumentary: Present: clear, warm - Psychiatric Psychiatric: appropriate mood/affect, cooperative - Neurologic Neurologic: moves all extremities HEART Score - HEART Score Troponin: Troponin T 0.083 ng/mL (0.00-0.029) H 09/04/20 17:38 Results - Labs CBC & Chem 7: 09/05/20 04:34 09/07/20 04:52 Labs: Laboratory Last Values WBC 10.8 K/mm3 (4.5-11.0) 09/05/20 04:34 RBC 3.21 M/mm3 (3.65-5.03) L 09/05/20 04:34 Hgb 10.7 gm/dl (10.1-14.3) 09/05/20 04:34 Hct 31.0 % (30.3-42.9) 09/05/20 04:34 MCV 97 fl (79-97) 09/05/20 04:34 MCH 33 pg (28-32) H 09/05/20 04:34 MCHC 35 % (30-34) H 09/05/20 04:34 RDW 14.6 % (13.2-15.2) 09/05/20 04:34 Plt Count 351 K/mm3 (140-440) 09/05/20 04:34 Lymph % (Auto) 11.1 % (13.4-35.0) L 09/05/20 04:34 [place] % (Auto) 7.2 % (0.0-7.3) 09/05/20 04:34 Eos % (Auto) 0.0 % (0.0-4.3) 09/05/20 04:34 Baso % (Auto) 0.1 % (0.0-1.8) 09/05/20 04:34 Lymph # (Auto) 1.2 K/mm3 (1.2-5.4) 09/05/20 04:34 [place] # (Auto) 0.8 K/mm3 (0.0-0.8) 09/05/20 04:34 Eos # (Auto) 0.0 K/mm3 (0.0-0.4) 09/05/20 04:34 Baso # (Auto) 0.0 K/mm3 (0.0-0.1) 09/05/20 04:34 Seg Neutrophils % 81.6 % (40.0-70.0) H 09/05/20 04:34 Seg Neutrophils # 8.8 K/mm3 (1.8-7.7) H 09/05/20 04:34 PT 13.4 Sec. (12.2-14.9) 09/04/20 04:58 INR 0.96 (0.87-1.13) 09/04/20 04:58 APTT 25.7 Sec. (24.2-36.6) 09/04/20 04:58 VBG pH 7.306 (7.320-7.420) L 09/04/20 04:58 Sodium 141 mmol/L (137-145) 09/07/20 04:52 Potassium 3.8 mmol/L (3.6-5.0) 09/07/20 04:52 Chloride 101.8 mmol/L (98-107) 09/07/20 04:52 Carbon Dioxide 27 mmol/L (22-30) 09/07/20 04:52 Anion Gap 16 mmol/L 09/07/20 04:52 BUN 23 mg/dL (7-17) H 09/07/20 04:52 Creatinine 1.6 mg/dL (0.6-1.2) H 09/07/20 04:52 Estimated GFR 37 ml/min 09/07/20 04:52 BUN/Creatinine Ratio 14 % 09/07/20 04:52 Glucose 114 mg/dL (65-100) H 09/07/20 04:52 POC Glucose 159 mg/dL (70-105) H 09/07/20 11:24 Calcium 8.4 mg/dL (8.4-10.2) 09/07/20 04:52 Magnesium 1.70 mg/dL (1.7-2.3) 09/07/20 04:52 Total Creatine Kinase 70 units/L (30-135) 09/04/20 12:27 CK-MB (CK-2) 4.4 ng/mL (0.0-4.0) H 09/04/20 12:27 CK-MB (CK-2) Rel Index 4.4 (0-4) H 09/04/20 04:58 Troponin T 0.083 ng/mL (0.00-0.029) H 09/04/20 17:38 NT-Pro-B Natriuret Pep 79216 pg/mL (0-900) H 09/04/20 04:58 Triglycerides 84 mg/dL (2-149) 09/04/20 04:58 Cholesterol 112 mg/dL (50-199) 09/04/20 04:58 LDL Cholesterol Direct 56 mg/dL (50-130) 09/04/20 04:58 HDL Cholesterol 46 mg/dL (40-59) 09/04/20 04:58 Cholesterol/HDL Ratio 2.43 % 09/04/20 04:58 Urine Color Yellow (Yellow) 09/04/20 Unknown Urine Turbidity Slightly-cloudy (Clear) 09/04/20 Unknown Urine pH 5.0 (5.0-7.0) 09/04/20 Unknown Ur Specific [place] 1.009 (1.003-1.030) 09/04/20 Unknown Urine Protein <15 mg/dl mg/dL (Negative) 09/04/20 Unknown Urine Glucose (UA) Neg mg/dL (Negative) 09/04/20 Unknown Urine Ketones Neg mg/dL (Negative) 09/04/20 Unknown Urine Blood Neg (Negative) 09/04/20 Unknown Urine Nitrite Neg (Negative) 09/04/20 Unknown Urine Bilirubin Neg (Negative) 09/04/20 Unknown Urine Urobilinogen < 2.0 mg/dL (<2.0) 09/04/20 Unknown Ur Leukocyte Esterase Tr (Negative) 09/04/20 Unknown Urine WBC (Auto) 1.0 /HPF (0.0-6.0) 09/04/20 Unknown Urine RBC (Auto) 3.0 /HPF (0.0-6.0) 09/04/20 Unknown U Epithel Cells (Auto) 1.0 /HPF (0-13.0) 09/04/20 Unknown Urine Bacteria (Auto) 1+ /HPF (Negative) 09/04/20 Unknown Urine Creatinine 48.3 mg/dL (0.1-20.0) H 09/06/20 Unknown Urine Total Protein 10 mg/dL (5-11.8) 09/06/20 Unknown Coronavirus (PCR) Negative (Negative) 09/04/20 10:00 Fofana/IV: Voiding Method External Female Catheter Active Medications - Current Medications Current Medications: Generic Name Dose Route Start Last Admin Trade Name Freq PRN Reason Stop Dose Admin Acetaminophen 650 mg 09/04/20 09:00 Acetaminophen 325 Mg Tab PO Q4H PRN Pain MILD(1-3)/Fever >100.5/KYLE Albuterol 2.5 mg 09/04/20 08:23 Albuterol 2.5 Mg/3 Ml Nebu IH Q3HRT PRN Shortness Of Breath Albuterol/Ipratropium 1 ampul 09/04/20 14:00 09/07/20 07:41 Ipratropium/Albuterol Sulfate 3 Ml Ampul.Neb IH 1 ampul Q6HRT SHAYAN Administration Aspirin 81 mg 09/05/20 10:00 09/07/20 09:22 Aspirin 81 Mg Tab Chew PO 81 mg QDAY SHAYAN Administration Atorvastatin Calcium 40 mg 09/04/20 22:00 09/06/20 21:33 Atorvastatin 40 Mg Tab PO 40 mg QHS SHAYAN Administration Budesonide 0.5 mg 09/04/20 09:00 09/07/20 07:41 Budesonide 0.5 Mg/2 Ml Nebu IH 0.5 mg Q12HRT SHAYAN Administration Citalopram Hydrobromide 20 mg 09/04/20 10:00 09/07/20 09:22 Citalopram 20 Mg Tab PO 20 mg QDAY SHAYAN Administration Dextrose 50 ml 09/04/20 09:00 Dextrose 50% In Water (25gm) 50 Ml Syringe IV Q30MIN PRN Hypoglycemia Protocol Famotidine 20 mg 09/07/20 10:00 09/07/20 09:22 Famotidine 20 Mg Tab PO 20 mg DAILY SHAYAN Administration Furosemide 40 mg 09/07/20 12:00 Furosemide 40 Mg/4 Ml Inj IV DAILY@0600 [facility] Insulin Glargine 15 units 09/04/20 22:00 09/06/20 21:32 Insulin Glargine 100 Units/Ml SUB-Q Not Given QHS [facility] Insulin Human Lispro 0 unit 09/04/20 11:30 09/07/20 09:21 Insulin Lispro 100 Unit/Ml SUB-Q Not Given ACHS [facility] Protocol Isosorbide Dinitrate/Hydralazine 1 each 09/07/20 14:00 Isosorb Dinit/Hydralazine 20-37.5mg Tab PO Q8HR [facility] Metoclopramide HCl 5 mg 09/04/20 10:53 Metoclopramide 10 Mg/2 Ml Inj IV Q6H PRN Nausea Metoprolol Succinate 50 mg 09/04/20 10:00 09/07/20 09:22 Metoprolol Succinate Xl 50 Mg Tab PO 50 mg QDAY SHAYAN Administration Miscellaneous Medication 1 drop 09/04/20 10:00 09/04/20 11:04 Cyclosporine [Restasis 0.05%] OP Not Given BID [facility] Multivitamins/Minerals 1 each 09/07/20 10:00 09/07/20 09:22 Multivitamins,Ther W-Minerals Tab PO 1 each QDAY [facility] Administration Nitroglycerin 0.4 mg 09/04/20 08:28 Nitroglycerin 0.4 Mg Tab Subl SL Q5MIN PRN Chest Pain Nystatin 1 applic 09/04/20 10:00 09/06/20 21:31 Nystatin Cream 15 Gm Tube TP Not Given BID [facility] Ondansetron HCl 4 mg 09/04/20 08:23 09/04/20 23:11 Ondansetron 4 Mg/2 Ml Inj IV 4 mg Q4H PRN Administration Nausea And Vomiting Oxycodone/Acetaminophen 1 tab 09/04/20 10:00 Oxycodone /Acetaminophen 5-325mg Tab PO Q6H PRN Pain, Moderate (4-6) Sodium Chloride 10 ml 09/04/20 10:00 09/07/20 09:33 Sodium Chloride 0.9% 10 Ml Flush Syringe IV 10 ml BID SHAYAN Administration Sodium Chloride 10 ml 09/04/20 08:23 Sodium Chloride 0.9% 10 Ml Flush Syringe IV PRN PRN LINE FLUSH Spironolactone 25 mg 09/07/20 12:00 Spironolactone 25 Mg Tab PO QDAY SHAYAN Ticagrelor 90 mg 09/04/20 10:00 09/07/20 09:21 Ticagrelor 90 Mg Tab PO 90 mg BID SHAYAN Administration Nutrition/Malnutrition Assess - Dietary Evaluation Nutrition/Malnutrition Findings: Nutrition Notes Start: 09/04/20 12:12 Freq: Status: Active Protocol: Document 09/05/20 09:40 NICOLAS (Rec: 09/05/20 09:42 NICOLAS [email or web address]) Nutrition Notes Need for Assessment generated from: MD Order,Education Initial or Follow up Assessment Current Diagnosis Diabetes,Heart Failure,Stroke Current Diet Cardiac, Consistent CHO Labs/Tests BUN 25 Cr 1.8 Pertinent Medications NS at 42 ml/hr Height 5 ft 4 in Weight 65.4 kg [place] Body Weight (kg) 54.54 BMI 24.7 Weight Status Appropriate Subjective/Other Information MD order for diet education. Pt not appropriate for diet education. Pt not eating well- 35% of breakfast eaten. Burn Absent Trauma Absent GI Symptoms None Current % PO Poor (25-49%) Minimum of two criteria No physical signs of malnutrition #1 Nutrition Diagnosis Inadequate energy intake Etiology advanced age As Evidenced by Signs and Symptoms pt eating 35% of meals Is patient on ventilator? No Is Patient Ambulatory and/or Out of Bed No REE-([facility]-confined to bed) 1308.180 Calculation Used for Recommendations [facility] Additional Notes Protein: (1-1.2g/kg) 65-78g Fluid: 1 ml/kcal or per MD Nutrition Intervention Change Diet Order: continue Add Supplement/Snack (indicate name/kcal Glucerna TID /protein ) Provides kCal: 660 Provides Protein (gm) 30 Goal #1 Meet at least 75% of protein and energy needs via PO and ONS Anticipated Discharge Needs: Cardiac, consistent CHO Follow-Up By: 09/07/20 Additional Comments FU for intakes and ONS tolerance
[2020-09-07] MEDS: FUROSEMIDE 40 MG/4 ML INJ IV SCH (12:36)
[2020-09-07] MEDS: SPIRONOLACTONE 25 MG TAB PO SCH (12:37)
[2020-09-07] MEDS: ISOSORB DINIT/HYDRALAZINE 20-37.5MG TAB PO SCH ×2 (13:44→22:56)
[2020-09-07] MEDS: NYSTATIN CREAM 15 GM TUBE TP SCH ×2 (14:05→22:49)
[2020-09-07] MEDS: INSULIN GLARGINE 100 UNITS/ML SUB-Q SCH (22:48)
[2020-09-07] MEDS: ACETAMINOPHEN 325 MG TAB PO PRN (22:55)
[2020-09-08] MEDS: ISOSORB DINIT/HYDRALAZINE 20-37.5MG TAB PO SCH ×3 (05:34→22:45)
[2020-09-08] MEDS: FUROSEMIDE 40 MG/4 ML INJ IV SCH (05:34)
[2020-09-08] MEDS ORDERED: IPRATROPIUM/ALBUTEROL SULFATE 3 ML AMPUL.NEB IH SCH (08:00)
[2020-09-08] MEDS: INSULIN LISPRO 100 UNIT/ML SUB-Q SCH ×4 (08:12→22:39)
[2020-09-08] MEDS: BUDESONIDE 0.5 MG/2 ML NEBU IH SCH ×2 (08:19→20:42)
[2020-09-08] MEDS: ASPIRIN 81 MG TAB CHEW PO SCH (09:15)
[2020-09-08] MEDS: MULTIVITAMINS,THER W-MINERALS TAB PO SCH (09:15)
[2020-09-08] MEDS: TICAGRELOR 90 MG TAB PO SCH ×2 (09:15→22:48)
[2020-09-08] MEDS: NYSTATIN CREAM 15 GM TUBE TP SCH ×2 (09:16→22:40)
[2020-09-08] MEDS: FAMOTIDINE 20 MG TAB PO SCH (09:16)
[2020-09-08] MEDS: SPIRONOLACTONE 25 MG TAB PO SCH (09:16)
[2020-09-08] MEDS: CITALOPRAM 20 MG TAB PO SCH (09:16)
[2020-09-08] MEDS: METOPROLOL SUCCINATE XL 50 MG TAB PO SCH (09:16)
--- NOTE | 2020-09-08 09:31 | Progress Note ---
Assessment and Plan Acute systolic heart failure Predominately Nonischemic cardiomyopathy LVEF 20-25% by echo this presentation CAD s/p PCI of the proximal Ramus using [place] drug eluting stent at [facility] 07/2020 on Brilinta and aspirin Acute kidney injury Prior CVA with aphasia Hypertension Diabetes Continue guideline directed medical therapy for predominately nonischemic cardiomyopathy, systolic heart failure, and coronary artery disease. Otherwise, conservative cardiac management. Subjective Date of service: 09/08/20 Principal diagnosis: Acute kidney injury Interval history: Patient is resting in bed. No distress noted. Objective Vital Signs Temp Pulse Pulse Resp Resp BP Pulse Ox 09/08/20 09:16 86 132/80 09/08/20 08:56 100 09/08/20 08:12 97.9 F 86 20 132/80 100 09/08/20 08:10 88 16 09/08/20 05:34 86 09/08/20 03:37 99.3 F 94 H 16 135/85 100 09/07/20 22:56 100 H 09/07/20 22:53 100.1 F H 99 H 18 161/93 100 09/07/20 21:29 99 09/07/20 21:28 88 18 09/07/20 19:18 99.4 F 89 18 140/88 99 09/07/20 15:23 98.0 F 90 18 134/85 98 09/07/20 15:15 89 09/07/20 13:47 91 H 16 09/07/20 13:44 88 136/68 09/07/20 12:37 88 136/68 - Physical Examination General: No Apparent Distress HEENT: Positive: Normocephaly Neck: Positive: trachea midline Cardiac: Positive: Reg Rate and Rhythm Lungs: Positive: Decreased Breath Sounds Extremities: Absent: edema
--- NOTE | 2020-09-08 10:51 | Progress Note ---
Assessment and Plan - Patient Problems (1) Acute kidney injury Current Visit: Yes Status: Acute Plan to address problem: Acute kidney injury in setting of acute cardiorenal syndrome worsening probably related to the diuretics. 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 Kidney function is unchanged. Resume furosemide but decrease to daily. Follow- up electrolytes and renal function. Adjust medications to GFR less than 30 mls per minute. 2 g sodium renal diet (2) Acute on chronic systolic heart failure Current Visit: Yes Status: Acute Plan to address problem: Symptoms have improved. Chest x-ray still showed bilateral interstitial pulmonary edema though improved. Continue furosemide 40 mg daily intravenously and spironolactone 25 mg at bedtime (3) Hypertension Current Visit: Yes Status: Acute Plan to address problem: Blood pressure is improving. Follow-up blood pressure on current medications. (4) Type II diabetes mellitus Current Visit: No Status: Chronic Plan to address problem: Blood sugar management by primary attending (5) Anemia Current Visit: Yes Status: Acute Plan to address problem: Follow-up hemoglobin (6) Hyperlipidemia Current Visit: No Status: Chronic Plan to address problem: Continue hyperlipidemic agents Subjective Date of service: 09/08/20 Principal diagnosis: Acute kidney injury Interval history: Patient seen lying in bed. She has no complaints. She is more awake today. Objective - Exam Narrative Exam: Frail elderly lady lying in bed in no acute distress HEENT: NCAT, status post cataract extraction Neck: Supple, no venous distention CVS: S1S2 RRR with no murmur, rub or gallop Chest: Clear to auscultation Abdomen: Protuberant, soft, nontender, no organomegaly, bowel sounds are present Extremities: No edema Genitourinary deferred Skin warm and dry Neuro: Awake , no focal deficits - Vital Signs Vital signs: Vital Signs - 12hr 09/07/20 09/07/20 09/08/20 22:53 22:56 03:37 Temperature 100.1 F H 99.3 F Pulse Rate 99 H 100 H 94 H Pulse Rate [ Bilateral Throughout] Respiratory 18 16 Rate Respiratory Rate [Bilateral Throughout] Blood Pressure 161/93 135/85 O2 Sat by Pulse 100 100 Oximetry 09/08/20 09/08/20 09/08/20 05:34 08:10 08:12 Temperature 97.9 F Pulse Rate 86 86 Pulse Rate [ 88 Bilateral Throughout] Respiratory 20 Rate Respiratory 16 Rate [Bilateral Throughout] Blood Pressure 132/80 O2 Sat by Pulse 100 Oximetry 09/08/20 09/08/20 09/08/20 08:56 09:16 10:00 Temperature Pulse Rate 86 Pulse Rate [ Bilateral Throughout] Respiratory 18 Rate Respiratory Rate [Bilateral Throughout] Blood Pressure 132/80 O2 Sat by Pulse 100 98 Oximetry - Lab 09/05/20 04:34 09/07/20 04:52 Most recent lab results Calcium 8.4 mg/dL (8.4-10.2) 09/07/20 04:52 Magnesium 1.70 mg/dL (1.7-2.3) 09/07/20 04:52 Urine Creatinine 48.3 mg/dL (0.1-20.0) H 09/06/20 Unknown Urine Total Protein 10 mg/dL (5-11.8) 09/06/20 Unknown Medications & Allergies - Medications Allergies/Adverse Reactions: Allergies No Known Allergies Allergy (Verified 09/04/20 05:14) Home Medications: Home Medications Medication Instructions Recorded Confirmed Last Taken Type Glimepiride [Amaryl] 2 mg PO DAILY 05/27/18 09/04/20 05/27/18 20:00 History Aspirin [Aspirin BABY CHEW TAB] 81 mg PO QDAY #30 tab.chew 04/17/20 09/04/20 Unknown Rx AtorvaSTATin [Lipitor] 40 mg PO QHS #30 tablet 04/17/20 09/04/20 Unknown Rx LORazepam [Lorazepam] 0.5 mg PO QHS PRN 05/02/20 09/04/20 Unknown History Citalopram [celeXA] 20 mg PO QDAY 09/04/20 09/04/20 Unknown History Furosemide [Lasix] 20 mg PO QDAY PRN 09/04/20 09/04/20 Unknown History Isosorbide Mononitrate [Isosorbide 30 mg PO DAILY 09/04/20 09/04/20 Unknown History Mononitrate ER] Losartan [Cozaar] 25 mg PO QDAY 09/04/20 09/04/20 Unknown History Metoprolol Succinate [Kapspargo 50 mg PO DAILY 09/04/20 09/04/20 Unknown History Sprinkle] Nitroglycerin [Nitrostat] 0.4 mg SL Q5MIN PRN 09/04/20 09/04/20 Unknown History Nystatin Cream [Mycostatin Cream] 1 applic TP BID 09/04/20 09/04/20 Unknown History Ticagrelor [Brilinta] 90 mg PO BID 09/04/20 09/04/20 Unknown History Vit C/E/Zn/Coppr/Lutein/Zeaxan 1 each PO DAILY 09/04/20 09/04/20 Unknown History [Preservision Areds 2 Softgel] cycloSPORINE [Restasis 0.05%] 1 drop OP BID 09/04/20 09/04/20 Unknown History hydrALAZINE [Apresoline] 25 mg PO Q8HR 09/04/20 09/04/20 Unknown History metFORMIN [Glucophage] 500 mg PO BID 09/04/20 09/04/20 Unknown History Active Medications: Generic Name Dose Route Start Last Admin Trade Name Freq PRN Reason Stop Dose Admin Acetaminophen 650 mg 09/04/20 09:00 09/07/20 22:55 Acetaminophen 325 Mg Tab PO 650 mg Q4H PRN Administration Pain MILD(1-3)/Fever >100.5/KYLE Albuterol 2.5 mg 09/04/20 08:23 Albuterol 2.5 Mg/3 Ml Nebu IH Q3HRT PRN Shortness Of Breath Albuterol/Ipratropium 1 ampul 09/08/20 20:00 Ipratropium/Albuterol Sulfate 3 Ml Ampul.Neb IH BIDRT SHAYAN Aspirin 81 mg 09/05/20 10:00 09/08/20 09:15 Aspirin 81 Mg Tab Chew PO 81 mg QDAY SHAYAN Administration Atorvastatin Calcium 40 mg 09/04/20 22:00 09/07/20 22:56 Atorvastatin 40 Mg Tab PO 40 mg QHS SHAYAN Administration Budesonide 0.5 mg 09/04/20 09:00 09/08/20 08:19 Budesonide 0.5 Mg/2 Ml Nebu IH 0.5 mg Q12HRT SHAYAN Administration Citalopram Hydrobromide 20 mg 09/04/20 10:00 09/08/20 09:16 Citalopram 20 Mg Tab PO 20 mg QDAY SHAYAN Administration Dextrose 50 ml 09/04/20 09:00 Dextrose 50% In Water (25gm) 50 Ml Syringe IV Q30MIN PRN Hypoglycemia Protocol Famotidine 20 mg 09/07/20 10:00 09/08/20 09:16 Famotidine 20 Mg Tab PO 20 mg DAILY SHAYAN Administration Furosemide 40 mg 09/07/20 12:00 09/08/20 05:34 Furosemide 40 Mg/4 Ml Inj IV 40 mg DAILY@0600 SHAYAN Administration Insulin Glargine 15 units 09/04/20 22:00 09/07/20 22:48 Insulin Glargine 100 Units/Ml SUB-Q Not Given QHS [facility] Insulin Human Lispro 0 unit 09/04/20 11:30 09/08/20 08:12 Insulin Lispro 100 Unit/Ml SUB-Q Not Given ACHS [facility] Protocol Isosorbide Dinitrate/Hydralazine 1 each 09/07/20 14:00 09/08/20 05:34 Isosorb Dinit/Hydralazine 20-37.5mg Tab PO 1 each Q8HR SHAYAN Administration Metoclopramide HCl 5 mg 09/04/20 10:53 Metoclopramide 10 Mg/2 Ml Inj IV Q6H PRN Nausea Metoprolol Succinate 50 mg 09/04/20 10:00 09/08/20 09:16 Metoprolol Succinate Xl 50 Mg Tab PO 50 mg QDAY [facility] Administration Miscellaneous Medication 1 drop 09/04/20 10:00 09/04/20 11:04 Cyclosporine [Restasis 0.05%] OP Not Given BID [facility] Multivitamins/Minerals 1 each 09/07/20 10:00 09/08/20 09:15 Multivitamins,Ther W-Minerals Tab PO 1 each QDAY [facility] Administration Nitroglycerin 0.4 mg 09/04/20 08:28 Nitroglycerin 0.4 Mg Tab Subl SL Q5MIN PRN Chest Pain Nystatin 1 applic 09/04/20 10:00 09/08/20 09:16 Nystatin Cream 15 Gm Tube TP Not Given BID [facility] Ondansetron HCl 4 mg 09/04/20 08:23 09/04/20 23:11 Ondansetron 4 Mg/2 Ml Inj IV 4 mg Q4H PRN Administration Nausea And Vomiting Oxycodone/Acetaminophen 1 tab 09/04/20 10:00 Oxycodone /Acetaminophen 5-325mg Tab PO Q6H PRN Pain, Moderate (4-6) Sodium Chloride 10 ml 09/04/20 10:00 09/08/20 09:17 Sodium Chloride 0.9% 10 Ml Flush Syringe IV 10 ml BID SHAYAN Administration Sodium Chloride 10 ml 09/04/20 08:23 09/08/20 05:36 Sodium Chloride 0.9% 10 Ml Flush Syringe IV 10 ml PRN PRN Administration LINE FLUSH Spironolactone 25 mg 09/07/20 13:00 09/08/20 09:16 Spironolactone 25 Mg Tab PO 25 mg QDAY SHAYAN Administration Ticagrelor 90 mg 09/04/20 10:00 09/08/20 09:15 Ticagrelor 90 Mg Tab PO 90 mg BID SHAYAN Administration
--- NOTE | 2020-09-08 11:29 | Progress Note ---
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 ,Diabetes mellitus, hyperlipidemia, depression also recently diagnosed with congestive heart failure as of last month as patient reportedly had an CT req uiring cardiac stent that was supposedly done at [facility]. Patient presents to the hospital today and per record obtained from the EMS and the ER staff was found to be in acute respiratory failure with O2 saturation of 61% on room air. Patient was also in acute exacerbation of chronic systolic congestive heart failure and acute kidney injury. Patient is appropriately managed. Evaluated by cardiology. 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 Today patient's oxygen saturations were evaluated resting room air and ambulatory room air, patient saturates well and does not meet the criteria for Home oxygen. We will closely monitor patient and adjust the management as needed Possible discharge in 1 to 2 days if stable --Acute hypoxic respiratory failure; Titrate and DC nasal cannula oxygen Home O2 evaluation, patient does not require home oxygen Continue supportive care --CHF acute on chronic systolic 20 to 25%; Continue antifailure medications. Input output monitoring Low-sodium diet, free water restriction --CAD s/p PCI; Patient has no new symptoms, continue current cardiac medications --Hypertension; moderate control Continue current antihypertensives, and as needed medications --Acute kidney injury likely vasomotor nephropathy Creatinine trending down, avoid nephrotoxins Nephrology following --Nonspecific elevation of troponins' Continue current management Probably secondary to CHF exacerbation Cardiology following --Type 2 diabetes mellitus; moderate control A1c 6.5, Accu-Chek sliding scale coverage ADA diet Long-acting insulin, Home health nurse for disease monitoring at discharge --History of depression; Stable on Celexa, supportive care --History of CVA; with residual weakness Continue aspirin and statin, PT OT recommended home health --DVT prophylaxis; Heparin renal dose --Full CODE STATUS Closely monitor the patient and adjust the management as needed Plan of care reviewed with the patient's nurse and case management 09/05: I have reviewed records from [place] it appears that while the patient was then started on IV Lasix patient went due to worsening renal failure initial creatinine was 1.4 at a time patient was given some fluids for correction. Documentation showed that the patient has a history of CHF but was not in heart failure at that time. Considering worsening renal function we will hold Lasix we will give patient 500 cc of fluid and low-dose maintenance fluid to KVO and recheck renal function in a.m. Will await pulmonary consultation for further evaluation of this patient. May be underlining COPD in the differentials. 09/06: Continue supportive care. Nephrology consulted. Renal functions show some improvement but is unclear to me if this is secondary to the fluid I gave yesterday versus the Lasix that was restarted with fluid being discontinued. Pulmonary doubts that there may be COPD in this patient I do not disagree with that but will await cardiology completion of work-up to further evaluate congestive heart failure aspiration patient does not have any edema in the lower extremities. We will see if cardiology is in agreement with inotropic agent. I have called and updated family- Daughter- Soraida Renal ultrasound unremarkable Per family, patient has had multiple episode of difficulty breathing They also informed me that STENT was put on the patient hence the Brilanta and ASA Patients weight is around 139-140 Leukocytosis improving. Patient with poor appetite per family 09/07/2020; home O2 evaluation, PT OT recommendation noted and appreciated Recommend home health PT upon discharge 09/08/2020; home O2 evaluation, patient does not fit the criteria for home oxygen Saturates well in room air, patient has some discoloration of the tongue Possible fungal infection, will start nystatin mouthwash Closely monitor History Interval history: I have seen and examined the patient at the bedside Patient's chart and medications reviewed Patient has some dark discoloration of the tongue[patient is on a statin at home] Will recommend nystatin oral mouthwash No other complaints Vital signs reviewed Hospitalist Physical - Constitutional Vitals: Temp Pulse Resp BP Pulse Ox 97.9 F 86 18 132/80 98 09/08/20 08:12 09/08/20 09:16 09/08/20 10:00 09/08/20 09:16 09/08/20 10:00 General appearance: Present: no acute distress, well-nourished - EENT Eyes: Present: PERRL, EOM intact ENT: thrush (Oral thrush/fungal) - Neck Neck: Present: supple, normal ROM - Respiratory Respiratory effort: normal Respiratory: bilateral: diminished, negative: rales, rhonchi, wheezing - Cardiovascular Rhythm: regular Heart Sounds: Present: S1 & S2 - Extremities Extremities: no ischemia, No edema - Abdominal General gastrointestinal: soft, non-tender, non-distended, normal bowel sounds - Integumentary Integumentary: Present: clear, warm - Psychiatric Psychiatric: appropriate mood/affect, cooperative - Neurologic Neurologic: CNII-XII intact, moves all extremities HEART Score - HEART Score Troponin: Troponin T 0.083 ng/mL (0.00-0.029) H 09/04/20 17:38 Results - Labs CBC & Chem 7: 09/05/20 04:34 09/08/20 09:52 Labs: Laboratory Last Values WBC 10.8 K/mm3 (4.5-11.0) 09/05/20 04:34 RBC 3.21 M/mm3 (3.65-5.03) L 09/05/20 04:34 Hgb 10.7 gm/dl (10.1-14.3) 09/05/20 04:34 Hct 31.0 % (30.3-42.9) 09/05/20 04:34 MCV 97 fl (79-97) 09/05/20 04:34 MCH 33 pg (28-32) H 09/05/20 04:34 MCHC 35 % (30-34) H 09/05/20 04:34 RDW 14.6 % (13.2-15.2) 09/05/20 04:34 Plt Count 351 K/mm3 (140-440) 09/05/20 04:34 Lymph % (Auto) 11.1 % (13.4-35.0) L 09/05/20 04:34 [place] % (Auto) 7.2 % (0.0-7.3) 09/05/20 04:34 Eos % (Auto) 0.0 % (0.0-4.3) 09/05/20 04:34 Baso % (Auto) 0.1 % (0.0-1.8) 09/05/20 04:34 Lymph # (Auto) 1.2 K/mm3 (1.2-5.4) 09/05/20 04:34 [place] # (Auto) 0.8 K/mm3 (0.0-0.8) 09/05/20 04:34 Eos # (Auto) 0.0 K/mm3 (0.0-0.4) 09/05/20 04:34 Baso # (Auto) 0.0 K/mm3 (0.0-0.1) 09/05/20 04:34 Seg Neutrophils % 81.6 % (40.0-70.0) H 09/05/20 04:34 Seg Neutrophils # 8.8 K/mm3 (1.8-7.7) H 09/05/20 04:34 PT 13.4 Sec. (12.2-14.9) 09/04/20 04:58 INR 0.96 (0.87-1.13) 09/04/20 04:58 APTT 25.7 Sec. (24.2-36.6) 09/04/20 04:58 VBG pH 7.306 (7.320-7.420) L 09/04/20 04:58 Sodium 141 mmol/L (137-145) 09/08/20 09:52 Potassium 3.6 mmol/L (3.6-5.0) 09/08/20 09:52 Chloride 102.1 mmol/L (98-107) 09/08/20 09:52 Carbon Dioxide 26 mmol/L (22-30) 09/08/20 09:52 Anion Gap 17 mmol/L 09/08/20 09:52 BUN 25 mg/dL (7-17) H 09/08/20 09:52 Creatinine 1.4 mg/dL (0.6-1.2) H 09/08/20 09:52 Estimated GFR 43 ml/min 09/08/20 09:52 BUN/Creatinine Ratio 18 % 09/08/20 09:52 Glucose 197 mg/dL (65-100) H 09/08/20 09:52 POC Glucose 124 mg/dL (70-105) H 09/08/20 07:58 Calcium 9.0 mg/dL (8.4-10.2) 09/08/20 09:52 Magnesium 1.70 mg/dL (1.7-2.3) 09/07/20 04:52 Total Creatine Kinase 70 units/L (30-135) 09/04/20 12:27 CK-MB (CK-2) 4.4 ng/mL (0.0-4.0) H 09/04/20 12:27 CK-MB (CK-2) Rel Index 4.4 (0-4) H 09/04/20 04:58 Troponin T 0.083 ng/mL (0.00-0.029) H 09/04/20 17:38 NT-Pro-B Natriuret Pep 63568 pg/mL (0-900) H 09/04/20 04:58 Triglycerides 84 mg/dL (2-149) 09/04/20 04:58 Cholesterol 112 mg/dL (50-199) 09/04/20 04:58 LDL Cholesterol Direct 56 mg/dL (50-130) 09/04/20 04:58 HDL Cholesterol 46 mg/dL (40-59) 09/04/20 04:58 Cholesterol/HDL Ratio 2.43 % 09/04/20 04:58 Urine Color Yellow (Yellow) 09/04/20 Unknown Urine Turbidity Slightly-cloudy (Clear) 09/04/20 Unknown Urine pH 5.0 (5.0-7.0) 09/04/20 Unknown Ur Specific [place] 1.009 (1.003-1.030) 09/04/20 Unknown Urine Protein <15 mg/dl mg/dL (Negative) 09/04/20 Unknown Urine Glucose (UA) Neg mg/dL (Negative) 09/04/20 Unknown Urine Ketones Neg mg/dL (Negative) 09/04/20 Unknown Urine Blood Neg (Negative) 09/04/20 Unknown Urine Nitrite Neg (Negative) 09/04/20 Unknown Urine Bilirubin Neg (Negative) 09/04/20 Unknown Urine Urobilinogen < 2.0 mg/dL (<2.0) 09/04/20 Unknown Ur Leukocyte Esterase Tr (Negative) 09/04/20 Unknown Urine WBC (Auto) 1.0 /HPF (0.0-6.0) 09/04/20 Unknown Urine RBC (Auto) 3.0 /HPF (0.0-6.0) 09/04/20 Unknown U Epithel Cells (Auto) 1.0 /HPF (0-13.0) 09/04/20 Unknown Urine Bacteria (Auto) 1+ /HPF (Negative) 09/04/20 Unknown Urine Creatinine 48.3 mg/dL (0.1-20.0) H 09/06/20 Unknown Urine Total Protein 10 mg/dL (5-11.8) 09/06/20 Unknown Nasal Screen MRSA (PCR) Negative (Negative) 09/05/20 Unknown Coronavirus (PCR) Negative (Negative) 09/04/20 10:00 [place]/IV: Voiding Method External Female Catheter Active Medications - Current Medications Current Medications: Generic Name Dose Route Start Last Admin Trade Name Freq PRN Reason Stop Dose Admin Acetaminophen 650 mg 09/04/20 09:00 09/07/20 22:55 Acetaminophen 325 Mg Tab PO 650 mg Q4H PRN Administration Pain MILD(1-3)/Fever >100.5/KYLE Albuterol 2.5 mg 09/04/20 08:23 Albuterol 2.5 Mg/3 Ml Nebu IH Q3HRT PRN Shortness Of Breath Albuterol/Ipratropium 1 ampul 09/08/20 20:00 Ipratropium/Albuterol Sulfate 3 Ml Ampul.Neb IH BIDRT SHAYAN Aspirin 81 mg 09/05/20 10:00 09/08/20 09:15 Aspirin 81 Mg Tab Chew PO 81 mg QDAY SHAYAN Administration Atorvastatin Calcium 40 mg 09/04/20 22:00 09/07/20 22:56 Atorvastatin 40 Mg Tab PO 40 mg QHS SHAYAN Administration Budesonide 0.5 mg 09/04/20 09:00 09/08/20 08:19 Budesonide 0.5 Mg/2 Ml Nebu IH 0.5 mg Q12HRT SHAYAN Administration Citalopram Hydrobromide 20 mg 09/04/20 10:00 09/08/20 09:16 Citalopram 20 Mg Tab PO 20 mg QDAY SHAYAN Administration Dextrose 50 ml 09/04/20 09:00 Dextrose 50% In Water (25gm) 50 Ml Syringe IV Q30MIN PRN Hypoglycemia Protocol Famotidine 20 mg 09/07/20 10:00 09/08/20 09:16 Famotidine 20 Mg Tab PO 20 mg DAILY SHAYAN Administration Furosemide 40 mg 09/07/20 12:00 09/08/20 05:34 Furosemide 40 Mg/4 Ml Inj IV 40 mg DAILY@0600 SHAYAN Administration Insulin Glargine 15 units 09/04/20 22:00 09/07/20 22:48 Insulin Glargine 100 Units/Ml SUB-Q Not Given QHS [facility] Insulin Human Lispro 0 unit 09/04/20 11:30 09/08/20 08:12 Insulin Lispro 100 Unit/Ml SUB-Q Not Given ACHS [facility] Protocol Isosorbide Dinitrate/Hydralazine 1 each 09/07/20 14:00 09/08/20 05:34 Isosorb Dinit/Hydralazine 20-37.5mg Tab PO 1 each Q8HR SHAYAN Administration Metoclopramide HCl 5 mg 09/04/20 10:53 Metoclopramide 10 Mg/2 Ml Inj IV Q6H PRN Nausea Metoprolol Succinate 50 mg 09/04/20 10:00 09/08/20 09:16 Metoprolol Succinate Xl 50 Mg Tab PO 50 mg QDAY SHYAAN Administration Miscellaneous Medication 1 drop 09/04/20 10:00 09/04/20 11:04 Cyclosporine [Restasis 0.05%] OP Not Given BID [facility] Multivitamins/Minerals 1 each 09/07/20 10:00 09/08/20 09:15 Multivitamins,Ther W-Minerals Tab PO 1 each QDAY [facility] Administration Nitroglycerin 0.4 mg 09/04/20 08:28 Nitroglycerin 0.4 Mg Tab Subl SL Q5MIN PRN Chest Pain Nystatin 1 applic 09/04/20 10:00 09/08/20 09:16 Nystatin Cream 15 Gm Tube TP Not Given BID [facility] Ondansetron HCl 4 mg 09/04/20 08:23 09/04/20 23:11 Ondansetron 4 Mg/2 Ml Inj IV 4 mg Q4H PRN Administration Nausea And Vomiting Oxycodone/Acetaminophen 1 tab 09/04/20 10:00 Oxycodone /Acetaminophen 5-325mg Tab PO Q6H PRN Pain, Moderate (4-6) Sodium Chloride 10 ml 09/04/20 10:00 09/08/20 09:17 Sodium Chloride 0.9% 10 Ml Flush Syringe IV 10 ml BID SHAYAN Administration Sodium Chloride 10 ml 09/04/20 08:23 09/08/20 05:36 Sodium Chloride 0.9% 10 Ml Flush Syringe IV 10 ml PRN PRN Administration LINE FLUSH Spironolactone 25 mg 09/07/20 13:00 09/08/20 09:16 Spironolactone 25 Mg Tab PO 25 mg QDAY SHAYAN Administration Ticagrelor 90 mg 09/04/20 10:00 09/08/20 09:15 Ticagrelor 90 Mg Tab PO 90 mg BID SHAYAN Administration Nutrition/Malnutrition Assess - Dietary Evaluation Nutrition/Malnutrition Findings: Nutrition Notes Start: 09/04/20 12:12 Freq: Status: Active Protocol: Document 09/07/20 13:33 (Rec: 09/07/20 13:39 MK [id number]) Nutrition Notes Initial or Follow up Reassessment Current Diagnosis Acute Kidney Injury,Diabetes, Heart Failure,Stroke Current Diet Pureed and thins, cardiac, consistent CHO Labs/Tests BUN 23 Cr 1.6 Pertinent Medications Lasix Height 5 ft 4 in Weight 63.8 kg [place] Body Weight (kg) 54.54 BMI 24.1 Weight Status Appropriate Subjective/Other Information FU for intakes. Per RN, pt ate apple sauce and apple juice this AM. VIROLOGIST unable to assess pt as she is resistant to PO. Will trial Ensure Clear due to pt with delayed swallow with Glucerna. Percent of energy/protein needs met: Negligible Burn Absent Trauma Absent GI Symptoms None Current % PO Negligible Minimum of two criteria No physical signs of malnutrition #1 Nutrition Diagnosis Inadequate energy intake As Evidenced by Signs and Symptoms pt refusing most food and drink Diagnosis Progress(for reassessment Worsened documentation) Is patient on ventilator? No Is Patient Ambulatory and/or Out of Bed No REE-([facility]-confined to bed) [phone] Calculation Used for Recommendations [facility] Additional Notes Protein: (1-1.2g/kg) 65-78g Fluid: 1 ml/kcal or per MD Nutrition Intervention Change Diet Order: continue Add Supplement/Snack (indicate name/kcal Ensure Clear daily /protein ) Provides kCal: 240 Provides Protein (gm) 8 Goal #1 Meet at least 75% of protein and energy needs via PO and ONS Anticipated Discharge Needs: Unable to determine at this time Follow-Up By: 09/09/20 Additional Comments FU for intakes and ONS tolerance
--- NOTE | 2020-09-08 13:44 | Progress Note ---
Assessment and Plan 84 y/o female with what appears to be volume overload. Wean oxygen to off Will sign off. Subjective Date of service: 09/08/20 Principal diagnosis: Acute kidney injury Interval history: Down to 1 liter NC Objective Vital Signs - 12hr 09/08/20 09/08/20 09/08/20 03:37 05:34 08:10 Temperature 99.3 F Pulse Rate 94 H 86 Pulse Rate [ 88 Bilateral Throughout] Respiratory 16 Rate Respiratory 16 Rate [Bilateral Throughout] Blood Pressure 135/85 O2 Sat by Pulse 100 Oximetry 09/08/20 09/08/20 09/08/20 08:12 08:56 09:16 Temperature 97.9 F Pulse Rate 86 86 Pulse Rate [ Bilateral Throughout] Respiratory 20 Rate Respiratory Rate [Bilateral Throughout] Blood Pressure 132/80 132/80 O2 Sat by Pulse 100 100 Oximetry 09/08/20 10:00 Temperature Pulse Rate Pulse Rate [ Bilateral Throughout] Respiratory 18 Rate Respiratory Rate [Bilateral Throughout] Blood Pressure O2 Sat by Pulse 98 Oximetry Constitutional: no acute distress, alert Eyes: non-icteric ENT: oropharynx moist Neck: supple Effort: normal Ascultation: Bilateral: clear (anteriorly) Cardiovascular: regular rate and rhythm (no mrg) Gastrointestinal: normoactive bowel sounds, soft, non-tender, non-distended Integumentary: normal Extremities: no cyanosis, no edema, pink and warm Neurologic: normal mental status, non-focal exam, pupils equal and round Psychiatric: mood appropriate, affect normal CBC and BMP: 09/05/20 04:34 09/08/20 09:52 ABG, PT/INR, D-dimer: PT/INR, D-dimer PT 13.4 Sec. (12.2-14.9) 09/04/20 04:58 INR 0.96 (0.87-1.13) 09/04/20 04:58 Abnormal lab findings: Abnormal Labs 09/04/20 09/04/20 09/04/20 04:58 04:58 04:58 WBC 15.3 H RBC 3.27 L MCV 98 H MCH 33 H MCHC Lymph % (Auto) 8.1 L Seg Neutrophils % 85.3 H Seg Neutrophils # 13.1 H VBG pH 7.306 L Sodium 136 L Chloride Carbon Dioxide 19 L BUN Creatinine 1.3 H Glucose 219 H POC Glucose CK-MB (CK-2) CK-MB (CK-2) Rel Index 4.4 H Troponin T 0.031 H NT-Pro-B Natriuret Pep 49583 H Urine Creatinine 09/04/20 09/04/20 09/04/20 12:27 13:56 17:38 WBC RBC MCV MCH MCHC Lymph % (Auto) Seg Neutrophils % Seg Neutrophils # VBG pH Sodium Chloride Carbon Dioxide BUN Creatinine Glucose POC Glucose 138 H CK-MB (CK-2) 4.4 H CK-MB (CK-2) Rel Index Troponin T 0.090 H D 0.083 H NT-Pro-B Natriuret Pep Urine Creatinine 09/04/20 09/05/20 09/05/20 22:38 04:34 04:34 WBC RBC 3.21 L MCV MCH 33 H MCHC 35 H Lymph % (Auto) 11.1 L Seg Neutrophils % 81.6 H Seg Neutrophils # 8.8 H VBG pH Sodium Chloride Carbon Dioxide 21 L BUN 25 H Creatinine 1.8 H Glucose 137 H POC Glucose 214 H CK-MB (CK-2) CK-MB (CK-2) Rel Index Troponin T NT-Pro-B Natriuret Pep Urine Creatinine 09/05/20 09/05/20 09/05/20 12:55 16:36 20:58 WBC RBC MCV MCH MCHC Lymph % (Auto) Seg Neutrophils % Seg Neutrophils # VBG pH Sodium Chloride Carbon Dioxide BUN Creatinine Glucose POC Glucose 128 H 209 H 109 H CK-MB (CK-2) CK-MB (CK-2) Rel Index Troponin T NT-Pro-B Natriuret Pep Urine Creatinine 09/06/20 09/06/20 09/06/20 00:09 04:01 11:42 WBC RBC MCV MCH MCHC Lymph % (Auto) Seg Neutrophils % Seg Neutrophils # VBG pH Sodium Chloride 107.3 H Carbon Dioxide BUN 26 H Creatinine 1.6 H Glucose POC Glucose 65 L 121 H CK-MB (CK-2) CK-MB (CK-2) Rel Index Troponin T NT-Pro-B Natriuret Pep Urine Creatinine 09/06/20 09/06/20 09/06/20 16:39 20:05 Unknown WBC RBC MCV MCH MCHC Lymph % (Auto) Seg Neutrophils % Seg Neutrophils # VBG pH Sodium Chloride Carbon Dioxide BUN Creatinine Glucose POC Glucose 143 H 123 H CK-MB (CK-2) CK-MB (CK-2) Rel Index Troponin T NT-Pro-B Natriuret Pep Urine Creatinine 48.3 H 09/07/20 09/07/20 09/07/20 04:52 07:24 11:24 WBC RBC MCV MCH MCHC Lymph % (Auto) Seg Neutrophils % Seg Neutrophils # VBG pH Sodium Chloride Carbon Dioxide BUN 23 H Creatinine 1.6 H Glucose 114 H POC Glucose 112 H 159 H CK-MB (CK-2) CK-MB (CK-2) Rel Index Troponin T NT-Pro-B Natriuret Pep Urine Creatinine 09/07/20 09/07/20 09/08/20 15:24 20:13 07:58 WBC RBC MCV MCH MCHC Lymph % (Auto) Seg Neutrophils % Seg Neutrophils # VBG pH Sodium Chloride Carbon Dioxide BUN Creatinine Glucose POC Glucose 152 H 111 H 124 H CK-MB (CK-2) CK-MB (CK-2) Rel Index Troponin T NT-Pro-B Natriuret Pep Urine Creatinine 09/08/20 09/08/20 09:52 11:54 WBC RBC MCV MCH MCHC Lymph % (Auto) Seg Neutrophils % Seg Neutrophils # VBG pH Sodium Chloride Carbon Dioxide BUN 25 H Creatinine 1.4 H Glucose 197 H POC Glucose 237 H CK-MB (CK-2) CK-MB (CK-2) Rel Index Troponin T NT-Pro-B Natriuret Pep Urine Creatinine
--- NOTE | 2020-09-08 14:08 | Event Note ---
Date: 09/08/20 I spoke with patient's granddaughter when she visited[her grandmother] the patient, I explained in detail patient's condition tests and reports treatment and discharge planning She had specific questions about patient's kidney function, oxygen levels, improvement of her lungs and discharge planning I answered all her questions, and encouraged her to call back if she has any new concerns. I also explained to her that we will evaluate for home oxygen periodically and especially on the day of discharge And set up home O2 if needed. She verbalized understanding
[2020-09-08] MEDS: IPRATROPIUM/ALBUTEROL SULFATE 3 ML AMPUL.NEB IH SCH (20:42)
[2020-09-08] MEDS: MAGIC MOUTHWASH 30ML PO SCH (22:47)
[2020-09-08] MEDS: INSULIN GLARGINE 100 UNITS/ML SUB-Q SCH (22:48)
[2020-09-09] MEDS: ISOSORB DINIT/HYDRALAZINE 20-37.5MG TAB PO SCH ×2 (05:52→13:52)
[2020-09-09] MEDS: FUROSEMIDE 40 MG/4 ML INJ IV SCH (05:52)
--- NOTE | 2020-09-09 08:49 | Progress Note ---
Assessment and Plan - Patient Problems (1) Acute kidney injury Current Visit: Yes Status: Acute Plan to address problem: Acute kidney injury in setting of acute cardiorenal syndrome worsening probably related to the diuretics. 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 Kidney function is unchanged. Labs pending this morning. Follow-up electrolytes and renal function. If kidney function stable, okay to discharge from renal perspective (2) Acute on chronic systolic heart failure Current Visit: Yes Status: Acute Plan to address problem: Symptoms have improved. Chest x-ray still showed bilateral interstitial pulmonary edema though improved. Okay to switch to furosemide 40 mg daily orally and spironolactone 25 mg at bedtime (3) Hypertension Current Visit: Yes Status: Acute Plan to address problem: Blood pressure is improving. Follow-up blood pressure on current medications. (4) Type II diabetes mellitus Current Visit: No Status: Chronic Plan to address problem: Blood sugar management by primary attending (5) Anemia Current Visit: Yes Status: Acute Plan to address problem: Follow-up hemoglobin (6) Hyperlipidemia Current Visit: No Status: Chronic Plan to address problem: Continue hyperlipidemic agents Subjective Date of service: 09/09/20 Principal diagnosis: Acute kidney injury Interval history: Patient seen lying in bed. She has no complaints. She is more awake today. Objective - Exam Narrative Exam: Frail elderly lady lying in bed in no acute distress HEENT: NCAT, status post cataract extraction Neck: Supple, no venous distention CVS: S1S2 RRR with no murmur, rub or gallop Chest: Clear to auscultation Abdomen: Protuberant, soft, nontender, no organomegaly, bowel sounds are present Extremities: No edema Genitourinary deferred Skin warm and dry Neuro: Awake , no focal deficits - Vital Signs Vital signs: Vital Signs - 12hr 09/08/20 09/08/20 09/09/20 22:45 23:04 03:21 Temperature 98.0 F 99.0 F Pulse Rate 97 H 100 H 91 H Respiratory 18 16 Rate Blood Pressure 116/70 147/99 O2 Sat by Pulse 96 98 Oximetry 09/09/20 07:34 Temperature 97.1 F L Pulse Rate 87 Respiratory 19 Rate Blood Pressure 123/79 O2 Sat by Pulse 98 Oximetry - Lab 09/05/20 04:34 09/08/20 09:52 Most recent lab results Calcium 9.0 mg/dL (8.4-10.2) 09/08/20 09:52 Magnesium 1.70 mg/dL (1.7-2.3) 09/07/20 04:52 Urine Creatinine 48.3 mg/dL (0.1-20.0) H 09/06/20 Unknown Urine Total Protein 10 mg/dL (5-11.8) 09/06/20 Unknown Medications & Allergies - Medications Allergies/Adverse Reactions: Allergies No Known Allergies Allergy (Verified 09/04/20 05:14) Home Medications: Home Medications Medication Instructions Recorded Confirmed Last Taken Type Glimepiride [Amaryl] 2 mg PO DAILY 05/27/18 09/04/20 05/27/18 20:00 History Aspirin [Aspirin BABY CHEW TAB] 81 mg PO QDAY #30 tab.chew 04/17/20 09/04/20 Unknown Rx AtorvaSTATin [Lipitor] 40 mg PO QHS #30 tablet 04/17/20 09/04/20 Unknown Rx LORazepam [Lorazepam] 0.5 mg PO QHS PRN 05/02/20 09/04/20 Unknown History Citalopram [celeXA] 20 mg PO QDAY 09/04/20 09/04/20 Unknown History Furosemide [Lasix] 20 mg PO QDAY PRN 09/04/20 09/04/20 Unknown History Isosorbide Mononitrate [Isosorbide 30 mg PO DAILY 09/04/20 09/04/20 Unknown History Mononitrate ER] Losartan [Cozaar] 25 mg PO QDAY 09/04/20 09/04/20 Unknown History Metoprolol Succinate [Kapspargo 50 mg PO DAILY 09/04/20 09/04/20 Unknown History Sprinkle] Nitroglycerin [Nitrostat] 0.4 mg SL Q5MIN PRN 09/04/20 09/04/20 Unknown History Nystatin Cream [Mycostatin Cream] 1 applic TP BID 09/04/20 09/04/20 Unknown History Ticagrelor [Brilinta] 90 mg PO BID 09/04/20 09/04/20 Unknown History Vit C/E/Zn/Coppr/Lutein/Zeaxan 1 each PO DAILY 09/04/20 09/04/20 Unknown History [Preservision Areds 2 Softgel] cycloSPORINE [Restasis 0.05%] 1 drop OP BID 09/04/20 09/04/20 Unknown History hydrALAZINE [Apresoline] 25 mg PO Q8HR 09/04/20 09/04/20 Unknown History metFORMIN [Glucophage] 500 mg PO BID 09/04/20 09/04/20 Unknown History Active Medications: Generic Name Dose Route Start Last Admin Trade Name Freq PRN Reason Stop Dose Admin Acetaminophen 650 mg 09/04/20 09:00 09/07/20 22:55 Acetaminophen 325 Mg Tab PO 650 mg Q4H PRN Administration Pain MILD(1-3)/Fever >100.5/KYLE Albuterol 2.5 mg 09/04/20 08:23 Albuterol 2.5 Mg/3 Ml Nebu IH Q3HRT PRN Shortness Of Breath Albuterol/Ipratropium 1 ampul 09/08/20 20:00 09/08/20 20:42 Ipratropium/Albuterol Sulfate 3 Ml Ampul.Neb IH 1 ampul BIDRT SHAYAN Administration Aspirin 81 mg 09/05/20 10:00 09/08/20 09:15 Aspirin 81 Mg Tab Chew PO 81 mg QDAY SHAYAN Administration Atorvastatin Calcium 40 mg 09/04/20 22:00 09/08/20 22:48 Atorvastatin 40 Mg Tab PO 40 mg QHS SHAYAN Administration Budesonide 0.5 mg 09/04/20 09:00 09/08/20 20:42 Budesonide 0.5 Mg/2 Ml Nebu IH 0.5 mg Q12HRT SHAYAN Administration Citalopram Hydrobromide 20 mg 09/04/20 10:00 09/08/20 09:16 Citalopram 20 Mg Tab PO 20 mg QDAY SHAYAN Administration Dextrose 50 ml 09/04/20 09:00 Dextrose 50% In Water (25gm) 50 Ml Syringe IV Q30MIN PRN Hypoglycemia Protocol Famotidine 20 mg 09/07/20 10:00 09/08/20 09:16 Famotidine 20 Mg Tab PO 20 mg DAILY SHAYAN Administration Furosemide 40 mg 09/07/20 12:00 09/09/20 05:52 Furosemide 40 Mg/4 Ml Inj IV 40 mg DAILY@0600 SHAYAN Administration Insulin Glargine 15 units 09/04/20 22:00 09/08/20 22:48 Insulin Glargine 100 Units/Ml SUB-Q 15 units QHS [facility] Administration Insulin Human Lispro 0 unit 09/04/20 11:30 09/08/20 22:39 Insulin Lispro 100 Unit/Ml SUB-Q Not Given ACHS [facility] Protocol Isosorbide Dinitrate/Hydralazine 1 each 09/07/20 14:00 09/09/20 05:52 Isosorb Dinit/Hydralazine 20-37.5mg Tab PO 1 each Q8HR SHAYAN Administration Lidocaine HCl 15 ml 09/08/20 20:00 09/08/20 22:47 Magic Mouthwash 30ml PO 15 ml TID [facility] Administration Metoclopramide HCl 5 mg 09/04/20 10:53 Metoclopramide 10 Mg/2 Ml Inj IV Q6H PRN Nausea Metoprolol Succinate 50 mg 09/04/20 10:00 09/08/20 09:16 Metoprolol Succinate Xl 50 Mg Tab PO 50 mg QDAY [facility] Administration Miscellaneous Medication 1 drop 09/04/20 10:00 09/04/20 11:04 Cyclosporine [Restasis 0.05%] OP Not Given BID [facility] Multivitamins/Minerals 1 each 09/07/20 10:00 09/08/20 09:15 Multivitamins,Ther W-Minerals Tab PO 1 each QDAY [facility] Administration Nitroglycerin 0.4 mg 09/04/20 08:28 Nitroglycerin 0.4 Mg Tab Subl SL Q5MIN PRN Chest Pain Nystatin 1 applic 09/04/20 10:00 09/08/20 22:40 Nystatin Cream 15 Gm Tube TP Not Given BID [facility] Ondansetron HCl 4 mg 09/04/20 08:23 09/04/20 23:11 Ondansetron 4 Mg/2 Ml Inj IV 4 mg Q4H PRN Administration Nausea And Vomiting Oxycodone/Acetaminophen 1 tab 09/04/20 10:00 Oxycodone /Acetaminophen 5-325mg Tab PO Q6H PRN Pain, Moderate (4-6) Sodium Chloride 10 ml 09/04/20 10:00 09/08/20 22:48 Sodium Chloride 0.9% 10 Ml Flush Syringe IV 10 ml BID [facility] Administration Sodium Chloride 10 ml 09/04/20 08:23 09/08/20 05:36 Sodium Chloride 0.9% 10 Ml Flush Syringe IV 10 ml PRN PRN Administration LINE FLUSH Spironolactone 25 mg 09/07/20 13:00 09/08/20 09:16 Spironolactone 25 Mg Tab PO 25 mg QDAY SHAYAN Administration Ticagrelor 90 mg 09/04/20 10:00 09/08/20 22:48 Ticagrelor 90 Mg Tab PO 90 mg BID SHAYAN Administration
[2020-09-09] MEDS: BUDESONIDE 0.5 MG/2 ML NEBU IH SCH (09:30)
[2020-09-09] MEDS: IPRATROPIUM/ALBUTEROL SULFATE 3 ML AMPUL.NEB IH SCH (09:52)
[2020-09-09] MEDS: INSULIN LISPRO 100 UNIT/ML SUB-Q SCH ×3 (10:17→16:42)
[2020-09-09] MEDS: TICAGRELOR 90 MG TAB PO SCH (10:18)
[2020-09-09] MEDS: SPIRONOLACTONE 25 MG TAB PO SCH (10:18)
[2020-09-09] MEDS: MULTIVITAMINS,THER W-MINERALS TAB PO SCH (10:18)
[2020-09-09] MEDS: ASPIRIN 81 MG TAB CHEW PO SCH (10:18)
[2020-09-09] MEDS: CITALOPRAM 20 MG TAB PO SCH (10:18)
[2020-09-09] MEDS: FAMOTIDINE 20 MG TAB PO SCH (10:18)
[2020-09-09] MEDS: METOPROLOL SUCCINATE XL 50 MG TAB PO SCH (10:19)
[2020-09-09] MEDS: NYSTATIN CREAM 15 GM TUBE TP SCH (10:20)
[2020-09-09] MEDS: MAGIC MOUTHWASH 30ML PO SCH ×2 (10:26→13:54)
--- NOTE | 2020-09-09 10:28 | Progress Note ---
Assessment and Plan Acute systolic heart failure Predominately Nonischemic cardiomyopathy LVEF 20-25% by echo this presentation CAD s/p PCI of the proximal Ramus using Arsh drug eluting stent at [facility] 07/2020 on Brilinta and aspirin Acute kidney injury Prior CVA with aphasia Hypertension Diabetes Continue guideline directed medical therapy for predominately nonischemic cardiomyopathy, systolic heart failure, and coronary artery disease. Otherwise, conservative cardiac management. Subjective Date of service: 09/09/20 Principal diagnosis: Acute kidney injury Interval history: Patient is resting in bed. No distress noted. Objective Vital Signs Temp Pulse Pulse Resp Resp BP Pulse Ox 09/09/20 10:19 87 128/76 09/09/20 10:18 87 128/71 09/09/20 09:54 97 09/09/20 09:30 86 12 09/09/20 07:34 97.1 F L 87 19 123/79 98 09/09/20 03:21 99.0 F 91 H 16 147/99 98 09/08/20 23:04 98.0 F 100 H 18 116/70 96 09/08/20 22:45 97 H 09/08/20 20:45 94 09/08/20 20:44 92 H 18 09/08/20 19:07 99.4 F 87 18 142/82 95 09/08/20 16:47 99.3 F 94 H 20 145/99 96 09/08/20 15:15 91 H 09/08/20 13:44 81 141/77 98 09/08/20 13:39 78 141/77 - Physical Examination General: No Apparent Distress HEENT: Positive: Normocephaly Neck: Positive: trachea midline Cardiac: Positive: Reg Rate and Rhythm Lungs: Positive: Decreased Breath Sounds - Labs and Meds Comprehensive Metabolic Panel 09/08/20 Range/Units 09:52 Sodium 141 (137-145) mmol/L Potassium 3.6 (3.6-5.0) mmol/L Chloride 102.1 (98-107) mmol/L Carbon Dioxide 26 (22-30) mmol/L BUN 25 H (7-17) mg/dL Creatinine 1.4 H (0.6-1.2) mg/dL Glucose 197 H (65-100) mg/dL Calcium 9.0 (8.4-10.2) mg/dL - Allied health notes Allied health notes reviewed: nursing
[2020-09-09 12:36] LABS: Calcium 8.8 mg/dL (8.4-10.2)
--- NOTE | 2020-09-09 12:44 | Electrocardiograph Report ---
[facility] Test Date: 2020-09-04 Test Time: 04:31:04 Pat Name: DORIS NGUYEN Department: Room: A473 1 Gender: F Talent Specialist: SHA : 1935 Requested By: CECELIA REDMAN Order Number: [id number] Reading MD: Juan Tristan Measurements Intervals [place] Rate: 128 P: -43 NM: 106 QRS: -22 QRSD: 158 T: 126 QT: 416 QTc: 608 Interpretive Statements Sinus or atrial tachycardia Left bundle branch block No previous ECG available for comparison Electronically Signed On 09-09-2020 12:43:59 EDT by Juan Tristan
--- NOTE | 2020-09-09 15:02 | Discharge Summary ---
Providers - Providers Date of Admission: 09/04/20 16:12 Date of discharge: 09/09/20 Attending physician: MAIRA CASTILLO 09/04/20 08:23 Consult to Physician [CONS] Routine Comment: Consulting Provider: CATHLEEN ORNELAS Physician Instructions: Reason For Exam: Congestive heart failure 09/04/20 08:26 Consult to Dietitian/Nutrition [CONS] Routine Physician Instructions: Reason For Exam: Reason for Consult: Diet education 09/06/20 08:34 Consult to Physician [CONS] Routine Comment: Consulting Provider: DIONICIO POWELL Physician Instructions: Reason For Exam: GENE ON CKD 09/06/20 13:14 Occupational Therapy Evaluate and Treat [CONS] Routine Comment: Reason For Exam: DEBILTY Physical Therapy Evaluation and Treat [CONS] Routine Comment: Reason For Exam: DBILITY 09/06/20 15:29 Speech Therapy Evaluation and Treat [CONS] Routine Reason For Exam: swallow evaluation 09/07/20 13:10 Speech Therapy Evaluation and Treat [CONS] Stat Reason For Exam: swallowing impaired [facility] Reason for admission: Acute acute hypoxic respiratory failure requiring BiPAP Condition: Fair Pertinent studies: Chest x-ray echocardiogram Renal ultrasound CT head without contrast Multiple chest x-rays Hospital course: Consult reason: congestive heart failure History of present illness: Apparently patient is a 84-year-old with a history of ischemic cardiomyopathy EF around 25% in and out of [facility] for shortness of breath. She is followed at the [place] [facility] at [place]. She also has multiple medical problems including history of CVA in 2012, ,Diabetes mellitus, hyperlipidemia, depression and dementia. She was admitted to the hospital with shortness of breath and hypoxia. Currently being treated for congestive heart failure and change in mental status. Patient presents to the hospital today and per record obtained from the EMS and the ER staff was found to have a saturation of 61% on room air was placed on n onrebreather with increased to 99%. Also 3 sublingual nitroglycerin was given by the family prior to EMS arrival. In the ER the patient is on BiPAP currently at the time of my evaluation. Is documented that he is that her disintegrator is Dr. Joyner. of [facility] cardiology patient has had negative Covid testing in the past and is up-to-date with her vaccines although I am not sure which vaccine. Patient has history of systolic congestive heart failure with ejection fraction of 25% patient was noted to have acute exacerbation of CHF with pedal edema. Admitted to the hospital appropriately managed evaluated by cardiology medications optimized. Patient required BiPAP. Gradually titrated. Patient symptoms slowly but significantly improved, today patient is comfortable no new complaints vital signs stable Physical examination prior to discharge is unremarkable Consultants cleared for discharge and follow-up for further evaluation management as outpatient Discharge diagnosis; --Acute hypoxic respiratory failure; Titrate and DC nasal cannula oxygen Home O2 evaluation, patient does not require home oxygen Continue supportive care --CHF acute on chronic systolic 20 to 25%; Continue antifailure medications. Input output monitoring Low-sodium diet, free water restriction --CAD s/p PCI; Patient has no new symptoms, continue current cardiac medications --Hypertension; moderate control Continue current antihypertensives, and as needed medications --Acute kidney injury likely vasomotor nephropathy Creatinine trending down, avoid nephrotoxins Nephrology following --Nonspecific elevation of troponins' Continue current management Probably secondary to CHF exacerbation Cardiology following --Type 2 diabetes mellitus; moderate control A1c 6.5, Accu-Chek sliding scale coverage ADA diet Long-acting insulin, Home health nurse for disease monitoring at discharge --Oral thrush Nystatin swish and swallow --History of depression; Stable on Celexa, supportive care --History of CVA; with residual weakness Continue aspirin and statin, PT OT recommended home health --DVT prophylaxis; Heparin renal dose --Full CODE STATUS Closely monitor the patient and adjust the management as needed Plan of care reviewed with the patient's nurse and case management Disposition: [id number] HOME UNDER HOME [facility] Final Discharge Diagnosis (Prints w/discharge instructions): Acute on chronic systolic congestive heart failure. Acute hypoxic respiratory failure. Ischemic cardiomyopathy EF 20 to 25%. Coronary artery disease status post PCI. Hypertension. Acute kidney injury. Non-ST elevation WI. Type 2 diabetes mellitus. History of depression. History of CVA with residual weakness. Oral thrush Time spent for discharge: 35 min Core Measure Documentation - Palliative Care Palliative Care/ Comfort Measures: Not Applicable - Core Measures Any of the following diagnoses?: heart failure - Heart Failure Discharge Requirements MONIK/ARB for LVSD if EF <40%: Yes Beta kenyatta at discharge: Yes Exam - Constitutional Vitals: Temp Pulse Resp BP Pulse Ox 98.4 F 84 19 144/92 97 09/09/20 10:53 09/09/20 13:52 09/09/20 10:53 09/09/20 13:52 09/09/20 10:53 General appearance: Present: no acute distress, well-nourished - EENT Eyes: Present: PERRL, EOM intact - Neck Neck: Present: supple, normal ROM - Respiratory Respiratory effort: normal Respiratory: bilateral: diminished, rales, negative: rhonchi, wheezing - Cardiovascular Rhythm: regular Heart Sounds: Present: S1 & S2 - Extremities Extremities: no ischemia, No edema - Abdominal General gastrointestinal: Present: deferred, non-tender, non-distended, normal bowel sounds - Integumentary Integumentary: Present: clear, warm - Musculoskeletal Musculoskeletal: strength equal bilaterally, generalized weakness - Psychiatric Psychiatric: appropriate mood/affect, other (Confused at times) - Neurologic Neurologic: moves all extremities Plan Activity: advance as tolerated, fall precautions Diet: diabetic, other (cardiac diet) Additional Instructions: Patient's O2 sats resting in room air more than 94%, no indication for home oxygen. Fall precautions, aspiration precautions. If you have worsening symptoms contact MD or go to emergency room. Do not take Metformin as your kidney function is abnormal, check with PMD . Follow up with: JUAN RAMON [facility] MD MALIK [Primary Care Provider] - 3-5 Days ANNEL GARCIA MD [Staff Physician] - 7 Days CARIE LUND MD [Staff Physician] - 7 Days HEAVENLY ISAAC MD [Staff Physician] - 7 Days Prescriptions: Spironolactone [Aldactone] 25 mg PO QDAY #30 tablet hydrALAZINE [Apresoline TAB] 25 mg PO Q8HR #90 tab Isosorbide Mononitrate [Isosorbide Mononitrate ER] 30 mg PO DAILY #30 tab.er.24h Furosemide [Lasix TAB] 40 mg PO QDAY #30 tablet Nystatin [Nystatin SUSP] 10 ml PO TID 30 Days #1 bottle
[2020-09-09] MEDS: ACETAMINOPHEN 325 MG TAB PO PRN (17:48)
[2020-09-09 18:24] VITALS: BP 130/81
== END 2020-09-09 18:29 | disposition home health service (06) | DRG 280 ==
LOC: ED 04:25 → 4A 16:12
PROVIDERS: ADMIT Internal Medicine; ATTEND Internal Medicine
PROC: 5A09357 Assistance with Respiratory Ventilation, Less than 24 Consecutive Hours, Continuous Positive Airway Pressure (ICD-10-PCS; principal; 2020-09-04)
DX: I11.0 Hypertensive heart disease with heart failure (principal); N17.0 Acute kidney failure with tubular necrosis; I21.4 Non-ST elevation (NSTEMI) myocardial infarction; J96.01 Acute respiratory failure with hypoxia; B37.0 Candidal stomatitis; I50.23 Acute on chronic systolic (congestive) heart failure; E11.9 Type 2 diabetes mellitus without complications; I25.10 Atherosclerotic heart disease of native coronary artery without angina pectoris; Z20.822 Contact with and (suspected) exposure to COVID-19; I25.5 Ischemic cardiomyopathy; D64.9 Anemia, unspecified; E78.5 Hyperlipidemia, unspecified; F32.9 Major depressive disorder, single episode, unspecified; Z82.49 Family history of ischemic heart disease and other diseases of the circulatory system; Z83.3 Family history of diabetes mellitus; Z86.73 Personal history of transient ischemic attack (TIA), and cerebral infarction without residual deficits; Z79.82 Long term (current) use of aspirin; Z79.899 Other long term (current) drug therapy; Z95.5 Presence of coronary angioplasty implant and graft
CPT/HCPCS: 36415; 70450; 71045; 76770; 80048; 80061; 81001; 82550; 82553; 82570; 82805; 82962; 83735; 83880; 84156; 84484; 85025; 85610; 85730; 87641; 93005; 93306; 94640; 94644; G0378; A9270-GY; J1100; J1650; J1815; J1940; J2405; J7030; J7040; U0003

== ENCOUNTER 2021-02-07 15:55 | Observation (INO) | payer MEDICARE ==
[2021-02-07] MEDS ORDERED: INSULIN REGULAR, HUMAN 100 UNITS/1 ML IV ONE ×2 (16:35→17:36)
--- NOTE | 2021-02-07 16:42 | Emergency Department Report ---
HPI - General Chief Complaint: Hyperglycemia Time Seen by Provider: 02/07/21 16:16 - HPI HPI: This is an 85-year-old female presents to the emergency department from the office of her PCP, Dr. Leon, with complaint of hyperglycemia. The patient has a history of [id number] diabetes for which she is on 2 mg of glimepiride and has been compliant with her medication. She saw the nurse practitioner for Dr. Leon for a routine checkup and was found to have a blood sugar of about 480. Initially they were going to try and give the patient some Lantus in the office but they did not have it available, so the patient was sent into the emergency department for further evaluation. 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 Her florist helper is Dr. Zuniga and her environmental field office manager is Dr. Tristan. ED Past Medical Hx - Past Medical History Hx Hypertension: Yes Hx CVA: Yes Hx Heart Attack/AMI: Yes Hx Congestive Heart Failure: Yes Hx Diabetes: Yes Additional medical history: HLD - Surgical History Hx Coronary Stent: Yes Hx Appendectomy: Yes Additional Surgical History: ectopic - Social History Smoking Status: Never Smoker - Medications Home Medications: Home Medications Medication Instructions Recorded Confirmed Last Taken Type Glimepiride [Amaryl] 2 mg PO DAILY 05/27/18 09/04/20 05/27/18 20:00 History Aspirin [Aspirin BABY CHEW TAB] 81 mg PO QDAY #30 tab.chew 04/17/20 09/04/20 Unknown Rx AtorvaSTATin [Lipitor] 40 mg PO QHS #30 tablet 04/17/20 09/04/20 Unknown Rx LORazepam [Lorazepam] 0.5 mg PO QHS PRN 05/02/20 09/04/20 Unknown History Citalopram [Celexa] 20 mg PO QDAY 09/04/20 09/04/20 Unknown History Losartan [Cozaar] 25 mg PO QDAY 09/04/20 09/04/20 Unknown History Metoprolol Succinate [Kapspargo 50 mg PO DAILY 09/04/20 09/04/20 Unknown History Sprinkle] Nitroglycerin [Nitrostat] 0.4 mg SL Q5MIN PRN 09/04/20 09/04/20 Unknown History Nystatin Cream [Mycostatin Cream] 1 applic TP BID 09/04/20 09/04/20 Unknown History Vit C/E/Zn/Coppr/Lutein/Zeaxan 1 each PO DAILY 09/04/20 09/04/20 Unknown History [Preservision Areds 2 Softgel] cycloSPORINE [Restasis 0.05%] 1 drop OP BID 09/04/20 02/07/21 Unknown History Furosemide [Lasix TAB] 40 mg PO QDAY #30 tablet 09/09/20 Unknown Rx Isosorbide Mononitrate [Isosorbide 30 mg PO DAILY #30 tab.er.24h 09/09/20 Unknown Rx Mononitrate ER] Nystatin [Nystatin SUSP] 10 ml PO TID 30 Days #1 bottle 09/09/20 Unknown Rx Spironolactone [Aldactone] 25 mg PO QDAY #30 tablet 09/09/20 Unknown Rx hydrALAZINE [Apresoline TAB] 25 mg PO Q8HR #90 tab 09/09/20 02/07/21 Unknown Rx ED Review of Systems ROS: Stated complaint: high BG Other details as noted in HPI Comment: All other systems reviewed and negative Constitutional: denies: chills, fever Eyes: denies: eye pain, vision change ENT: denies: ear pain, throat pain Respiratory: denies: cough, shortness of breath Cardiovascular: denies: chest pain, palpitations Gastrointestinal: denies: abdominal pain, vomiting Genitourinary: denies: dysuria, discharge Musculoskeletal: denies: back pain, arthralgia Skin: denies: rash, lesions Neurological: denies: headache, weakness Physical Exam - Physical Exam Physical Exam: GENERAL: The patient is well-developed well-nourished. HENT: Normocephalic. Atraumatic. Patient has moist mucous membranes. EYES: Extraocular motions are intact. NECK: Supple. Trachea is midline. CHEST/LUNGS: Clear to auscultation. There is no respiratory distress noted. HEART/CARDIOVASCULAR: Regular. There is no tachycardia. There is no murmur. ABDOMEN: Abdomen is soft, nontender. Patient has normal bowel sounds. There is no abdominal distention. SKIN: Skin is warm and dry. NEURO: The patient is awake, alert, and oriented. The patient is cooperative. Normal speech. MUSCULOSKELETAL: There is no tenderness or deformity. There is no limitation range of motion. ED Medical Decision Making - Lab Data Result diagrams: 02/07/21 16:40 02/07/21 16:40 Lab Results 02/07/21 02/07/21 02/07/21 Range/Units 16:05 16:40 16:40 WBC 7.7 (4.5-11.0) K/mm3 RBC 3.72 (3.65-5.03) M/mm3 Hgb 11.7 (10.1-14.3) gm/dl Hct 35.8 (30.3-42.9) % MCV 96 (79-97) fl MCH 31 (28-32) pg MCHC 33 (30-34) % RDW 13.2 (13.2-15.2) % Plt Count 195 (140-440) K/mm3 Lymph % (Auto) 39.5 H (13.4-35.0) % [place] % (Auto) 7.5 H (0.0-7.3) % Eos % (Auto) 2.3 (0.0-4.3) % Baso % (Auto) 0.3 (0.0-1.8) % Lymph # (Auto) 3.0 (1.2-5.4) K/mm3 [place] # (Auto) 0.6 (0.0-0.8) K/mm3 Eos # (Auto) 0.2 (0.0-0.4) K/mm3 Baso # (Auto) 0.0 (0.0-0.1) K/mm3 Seg Neutrophils % 50.4 (40.0-70.0) % Seg Neutrophils # 3.9 (1.8-7.7) K/mm3 VBG pH (7.320-7.420) Sodium 133 L (137-145) mmol/L Potassium 4.6 (3.6-5.0) mmol/L Chloride 101.0 (98-107) mmol/L Carbon Dioxide 20 L (22-30) mmol/L Anion Gap 17 mmol/L BUN 33 H (7-17) mg/dL Creatinine 1.5 H (0.6-1.2) mg/dL Estimated GFR 40 ml/min BUN/Creatinine Ratio 22 % Glucose 303 H (65-100) mg/dL POC Glucose 331 H (70-105) mg/dL Ketones Quantitative (Negative) Calcium 9.0 (8.4-10.2) mg/dL Total Bilirubin 0.60 (0.1-1.2) mg/dL AST 31 (5-40) units/L ALT 49 (7-56) units/L Alkaline Phosphatase 89 (35-129) units/L Total Protein 6.4 (6.3-8.2) g/dL Albumin 3.7 L (3.9-5) g/dL Albumin/Globulin Ratio 1.4 % Urine Color (Yellow) Urine Turbidity (Clear) Urine pH (5.0-7.0) Ur Specific [place] (1.003-1.030) Urine Protein (Negative) mg/dL Urine Glucose (UA) (Negative) mg/dL Urine Ketones (Negative) mg/dL Urine Blood (Negative) Urine Nitrite (Negative) Urine Bilirubin (Negative) Urine Urobilinogen (<2.0) mg/dL Ur Leukocyte Esterase (Negative) Urine WBC (Auto) (0.0-6.0) /HPF Urine RBC (Auto) (0.0-6.0) /HPF U Epithel Cells (Auto) (0-13.0) /HPF Urine Bacteria (Auto) (Negative) /HPF Urine Mucus /HPF Urine Yeast (Budding) /HPF 02/07/21 02/07/21 02/07/21 Range/Units 16:40 16:40 17:08 WBC (4.5-11.0) K/mm3 RBC (3.65-5.03) M/mm3 Hgb (10.1-14.3) gm/dl Hct (30.3-42.9) % MCV (79-97) fl MCH (28-32) pg MCHC (30-34) % RDW (13.2-15.2) % Plt Count (140-440) K/mm3 Lymph % (Auto) (13.4-35.0) % [place] % (Auto) (0.0-7.3) % Eos % (Auto) (0.0-4.3) % Baso % (Auto) (0.0-1.8) % Lymph # (Auto) (1.2-5.4) K/mm3 [place] # (Auto) (0.0-0.8) K/mm3 Eos # (Auto) (0.0-0.4) K/mm3 Baso # (Auto) (0.0-0.1) K/mm3 Seg Neutrophils % (40.0-70.0) % Seg Neutrophils # (1.8-7.7) K/mm3 VBG pH 7.436 H (7.320-7.420) Sodium (137-145) mmol/L Potassium (3.6-5.0) mmol/L Chloride (98-107) mmol/L Carbon Dioxide (22-30) mmol/L Anion Gap mmol/L BUN (7-17) mg/dL Creatinine (0.6-1.2) mg/dL Estimated GFR ml/min BUN/Creatinine Ratio % Glucose (65-100) mg/dL POC Glucose (70-105) mg/dL Ketones Quantitative Negative (Negative) Calcium (8.4-10.2) mg/dL Total Bilirubin (0.1-1.2) mg/dL AST (5-40) units/L ALT (7-56) units/L Alkaline Phosphatase (35-129) units/L Total Protein (6.3-8.2) g/dL Albumin (3.9-5) g/dL Albumin/Globulin Ratio % Urine Color Yellow (Yellow) Urine Turbidity Slightly-cloudy (Clear) Urine pH 6.0 (5.0-7.0) Ur Specific [place] 1.011 (1.003-1.030) Urine Protein <15 mg/dl (Negative) mg/dL Urine Glucose (UA) >=500 (Negative) mg/dL Urine Ketones Neg (Negative) mg/dL Urine Blood Neg (Negative) Urine Nitrite Neg (Negative) Urine Bilirubin Neg (Negative) Urine Urobilinogen < 2.0 (<2.0) mg/dL Ur Leukocyte Esterase Tr (Negative) Urine WBC (Auto) 53.0 H (0.0-6.0) /HPF Urine RBC (Auto) 2.0 (0.0-6.0) /HPF U Epithel Cells (Auto) 1.0 (0-13.0) /HPF Urine Bacteria (Auto) 1+ (Negative) /HPF Urine Mucus Few /HPF Urine Yeast (Budding) Few /HPF - Medical Decision Making The patient was sent in from the office of her PCP secondary to hyperglycemia with a blood sugar of about 480. Labs today do not show evidence of diabetic ketoacidosis but she still does have hyperglycemia with a blood sugar of about 310. The patient also has a urinary tract infection, which may be part of the reason for the hyperglycemia despite medication compliance. She has been given a small amount of IV fluid, a dose of IV insulin and IV antibiotics. She was seen by her PCP in the emergency department who is going to admit her to the hospital for an observational stay for diabetic education and evaluation of her renal insufficiency. Critical Care Time: No Critical care attestation.: If time is entered above; I have spent that time in minutes in the direct care of this critically ill patient, excluding procedure time. ED Disposition Clinical Impression: Hyperglycemia due to diabetes mellitus, UTI (urinary tract infection), Acute kidney injury Disposition: 09 ADMITTED INPATIENT Is pt being admited?: Yes Condition: Fair Instructions: Diabetes Mellitus Type 2 in Adults (ED) Time of Disposition: 20:25
[2021-02-07 17:04] LABS: Basophils % (Auto) 0.3 % (0.0-1.8); Eosinophils # (Auto) 0.2 K/mm3 (0.0-0.4); Eosinophils % (Auto) 2.3 % (0.0-4.3); Hematocrit 35.8 % (30.3-42.9); Hemoglobin 11.7 gm/dl (10.1-14.3); Lymphocytes % (Auto) 39.5 % (13.4-35.0); Mean Corpuscular HGB Conc 33 % (30-34); Mean Corpuscular Volume 96 fl (79-97); Monocytes # (Auto) 0.6 K/mm3 (0.0-0.8); Monocytes % (Auto) 7.5 % (0.0-7.3); Platelet Count 195 K/mm3 (140-440); Red Blood Count 3.72 M/mm3 (3.65-5.03); Red Cell Distribution Width 13.2 % (13.2-15.2)
[2021-02-07] MEDS ORDERED: SODIUM CHLORIDE 0.9% 500 ML 500 ML IV ONE (17:06)
[2021-02-07 17:19] LABS: Albumin 3.7 g/dL (3.9-5)
[2021-02-07 17:40] LABS: Bacteria,Urine 1+ /HPF (Negative); Bilirubin,Urine NEG (Negative); Blood,Urine NEG (Negative); Color,Urine Yellow (Yellow); Mucus,Urine FEW /HPF; Protein,Urine <15 mg/dL mg/dL (Negative); Urobilinogen,Urine < 2.0 mg/dL (<2.0)
[2021-02-07] MEDS ORDERED: SODIUM CHLORIDE 0.9% 500 ML 500 ML IV SCH (18:00)
[2021-02-07] MEDS ORDERED: cefTRIAXone/NS 1 GM/50 ML 1 GM/50 ML BAG IV ONE ×2 (20:09→23:59)
[2021-02-07] MEDS ORDERED: NITROGLYCERIN 0.4 MG TAB SUBL SL PRN (20:15)
[2021-02-07] MEDS ORDERED: ONDANSETRON 4 MG/2 ML INJ IV PRN (20:27)
[2021-02-07] MEDS ORDERED: oxyCODONE /ACETAMINOPHEN 5-325MG TAB PO PRN (20:27)
[2021-02-07] MEDS ORDERED: HYDROmorphone 1 MG/1 ML INJ IV PRN (20:27)
[2021-02-07] MEDS ORDERED: ACETAMINOPHEN 325 MG TAB PO PRN (20:27)
[2021-02-07] MEDS ORDERED: METOCLOPRAMIDE 10 MG/2 ML INJ IV PRN (20:27)
[2021-02-07] MEDS ORDERED: METOPROLOL SUCCINATE 50 MG PO SCH (20:30)
[2021-02-07] MEDS ORDERED: SODIUM CHLORIDE 0.9% 1000 ML 1,000 ML IV SCH (20:30)
[2021-02-07] MEDS ORDERED: LORazepam 0.5 MG TAB PO PRN (20:37)
[2021-02-07] MEDS ORDERED: INSULIN LISPRO 100 UNIT/ML SUB-Q ONE (21:00)
--- NOTE | 2021-02-07 21:05 | History and Physical Report ---
History of Present Illness Date of examination: 02/07/21 Date of admission: 02/07/2021 Chief complaint: High blood glucose levels in the range of 4 50-500 History of present illness: This is an 85-year-old female presents to the emergency department from the office of her PCP, Dr. Leon, with complaint of hyperglycemia. The patient has a history of [id number] diabetes for which she is on 2 mg of glimepiride and has been compliant with her medication. She saw the nurse practitioner for a routine checkup and was found to have a blood sugar of about 480. I - Past Medical History --Hypertension: Yes --CVA: Yes --Heart Attack/AMI: Yes --Congestive Heart Failure: Yes --Diabetes: Yes --Additional medical history: HLD - Surgical History --Coronary Stent: Yes --Appendectomy: Yes --Additional Surgical History: ectopic - Social History --Smoking Status: Never Smoker Review of Systems ROS: Stated complaint: high BG Other details as noted in HPI Comment: All other systems reviewed and negative Constitutional: denies: chills, fever Eyes: denies: eye pain, vision change ENT: denies: ear pain, throat pain Respiratory: denies: cough, shortness of breath Cardiovascular: denies: chest pain, palpitations Gastrointestinal: denies: abdominal pain, vomiting Genitourinary: denies: dysuria, discharge Musculoskeletal: denies: back pain, arthralgia Skin: denies: rash, lesions Neurological: denies: headache, weakness Medications and Allergies Allergies Allergy/AdvReac Type Severity Reaction Status Date / Time No Known Allergies Allergy Verified 09/04/20 05:14 Home Medications Medication Instructions Recorded Confirmed Last Taken Type Glimepiride [Amaryl] 2 mg PO DAILY 05/27/18 02/08/21 05/27/18 20:00 History Aspirin [Aspirin BABY CHEW TAB] 81 mg PO QDAY #30 tab.chew 04/17/20 02/08/21 Unknown Rx AtorvaSTATin [Lipitor] 40 mg PO QHS #30 tablet 04/17/20 02/08/21 Unknown Rx LORazepam [Lorazepam] 0.5 mg PO QHS PRN 05/02/20 02/08/21 Unknown History Citalopram [Celexa] 20 mg PO QDAY 09/04/20 02/08/21 Unknown History Losartan [Cozaar] 25 mg PO QDAY 09/04/20 02/08/21 Unknown History Metoprolol Succinate [Kapspargo 50 mg PO DAILY 09/04/20 02/08/21 Unknown History Sprinkle] Nitroglycerin [Nitrostat] 0.4 mg SL Q5MIN PRN 09/04/20 02/08/21 Unknown History Nystatin Cream [Mycostatin Cream] 1 applic TP BID 09/04/20 02/08/21 Unknown History Vit C/E/Zn/Coppr/Lutein/Zeaxan 1 each PO DAILY 09/04/20 02/08/21 Unknown History [Preservision Areds 2 Softgel] cycloSPORINE [Restasis 0.05%] 1 drop OP BID 09/04/20 02/07/21 Unknown History Furosemide [Lasix TAB] 40 mg PO QDAY #30 tablet 09/09/20 02/08/21 Unknown Rx Isosorbide Mononitrate [Isosorbide 30 mg PO DAILY #30 tab.er.24h 09/09/20 02/08/21 Unknown Rx Mononitrate ER] Nystatin [Nystatin SUSP] 10 ml PO TID 30 Days #1 bottle 09/09/20 02/08/21 Unknown Rx Spironolactone [Aldactone] 25 mg PO QDAY #30 tablet 09/09/20 02/08/21 1 Day Ago Rx ~02/07/21 hydrALAZINE [Apresoline TAB] 25 mg PO Q8HR #90 tab 09/09/20 02/07/21 Unknown Rx Active Meds: Active Medications Acetaminophen (Acetaminophen 325 Mg Tab) 650 mg PO Q4H PRN PRN Reason: Pain MILD(1-3)/Fever >100.5/KYLE Aspirin (Aspirin 81 Mg Tab Chew) 81 mg PO QDAY SHAYAN Atorvastatin Calcium (Atorvastatin 40 Mg Tab) 40 mg PO QHS SHAYAN Citalopram Hydrobromide (Citalopram 20 Mg Tab) 20 mg PO QDAY SHAYAN Furosemide (Furosemide 40 Mg Tab) 40 mg PO QDAY SHAYAN Heparin Sodium (Porcine) (Heparin 5,000 Unit/1 Ml Vial) 5,000 unit SUB-Q Q12HR SHAYAN Hydralazine HCl (Hydralazine 25 Mg Tab) 25 mg PO Q8HR SHAYAN Hydromorphone HCl (Hydromorphone 1 Mg/1 Ml Inj) 0.5 mg IV Q3H PRN PRN Reason: Pain , Severe (7-10) Sodium Chloride (Nacl 0.9% 500 Ml) 500 mls @ 999 mls/hr IV ONCE SHAYAN Stop: 02/07/21 23:00 Sodium Chloride (Nacl 0.9% 1000 Ml) 1,000 mls @ 75 mls/hr IV DIRECT SHAYAN Insulin Human Isoph/Insulin Regular (Insulin Nph/Regular 70/30 Inj) 20 unit SUB-Q BIDDIAB [facility] Insulin Human Lispro (Insulin Lispro 100 Unit/Ml) 0 unit SUB-Q ONCE ONE; Protocol Stop: 02/07/21 21:01 Isosorbide Mononitrate (Isosorbide Mononitrate Er 30 Mg Tab) 30 mg PO DAILY [facility] Lorazepam (Lorazepam 0.5 Mg Tab) 0.5 mg PO QHS PRN PRN Reason: Anxiety Losartan Potassium (Losartan 25 Mg Tab) 25 mg PO QDAY [facility] Metoclopramide HCl (Metoclopramide 10 Mg/2 Ml Inj) 10 mg IV Q6H PRN PRN Reason: Nausea And Vomiting Metoprolol Succinate (Metoprolol Succinate Xl 50 Mg Tab) 50 mg PO QDAY [facility] Nitroglycerin (Nitroglycerin 0.4 Mg Tab Subl) 0.4 mg SL Q5MIN PRN PRN Reason: Chest Pain Ondansetron HCl (Ondansetron 4 Mg/2 Ml Inj) 4 mg IV Q8H PRN PRN Reason: Nausea And Vomiting Oxycodone/Acetaminophen (Oxycodone /Acetaminophen 5-325mg Tab) 1 tab PO Q6H PRN PRN Reason: Pain, Moderate (4-6) Sodium Chloride (Sodium Chloride 0.9% 10 Ml Flush Syringe) 10 ml IV BID SHAYAN Sodium Chloride (Sodium Chloride 0.9% 10 Ml Flush Syringe) 10 ml IV PRN PRN PRN Reason: LINE FLUSH Spironolactone (Spironolactone 25 Mg Tab) 25 mg PO QDAY [facility] Exam - Constitutional Vitals: Temp Pulse Resp BP Pulse Ox 98.5 F 77 18 135/73 98 02/07/21 16:04 02/07/21 20:37 02/07/21 20:37 02/07/21 20:37 02/07/21 20:37 General appearance: Present: no acute distress, well-nourished - EENT Eyes: Present: PERRL ENT: hearing intact, clear oral mucosa - Neck Neck: Present: supple, normal ROM - Respiratory Respiratory effort: normal Respiratory: bilateral: CTA - Cardiovascular Heart rate: 78 Rhythm: regular Heart Sounds: Present: S1 & S2. Absent: rub, click - Extremities Extremities: pulses symmetrical, No edema Peripheral Pulses: within normal limits - Abdominal General gastrointestinal: Present: soft, non-tender, non-distended, normal bowel sounds Female genitourinary: Present: normal - Integumentary Integumentary: Present: clear, warm, dry - Musculoskeletal Musculoskeletal: gait normal, strength equal bilaterally - Psychiatric Psychiatric: appropriate mood/affect, intact judgment & insight - Neurologic Neurologic: CNII-XII intact, moves all extremities Results - Labs CBC & Chem 7: 02/07/21 16:40 02/07/21 16:40 Labs: Laboratory Last Values WBC 7.7 K/mm3 (4.5-11.0) 02/07/21 16:40 RBC 3.72 M/mm3 (3.65-5.03) 02/07/21 16:40 Hgb 11.7 gm/dl (10.1-14.3) 02/07/21 16:40 Hct 35.8 % (30.3-42.9) 02/07/21 16:40 MCV 96 fl (79-97) 02/07/21 16:40 MCH 31 pg (28-32) 02/07/21 16:40 MCHC 33 % (30-34) 02/07/21 16:40 RDW 13.2 % (13.2-15.2) 02/07/21 16:40 Plt Count 195 K/mm3 (140-440) 02/07/21 16:40 Lymph % (Auto) 39.5 % (13.4-35.0) H 02/07/21 16:40 [place] % (Auto) 7.5 % (0.0-7.3) H 02/07/21 16:40 Eos % (Auto) 2.3 % (0.0-4.3) 02/07/21 16:40 Baso % (Auto) 0.3 % (0.0-1.8) 02/07/21 16:40 Lymph # (Auto) 3.0 K/mm3 (1.2-5.4) 02/07/21 16:40 [place] # (Auto) 0.6 K/mm3 (0.0-0.8) 02/07/21 16:40 Eos # (Auto) 0.2 K/mm3 (0.0-0.4) 02/07/21 16:40 Baso # (Auto) 0.0 K/mm3 (0.0-0.1) 02/07/21 16:40 Seg Neutrophils % 50.4 % (40.0-70.0) 02/07/21 16:40 Seg Neutrophils # 3.9 K/mm3 (1.8-7.7) 02/07/21 16:40 VBG pH 7.436 (7.320-7.420) H 02/07/21 16:40 Sodium 133 mmol/L (137-145) L 02/07/21 16:40 Potassium 4.6 mmol/L (3.6-5.0) 02/07/21 16:40 Chloride 101.0 mmol/L (98-107) 02/07/21 16:40 Carbon Dioxide 20 mmol/L (22-30) L 02/07/21 16:40 Anion Gap 17 mmol/L 02/07/21 16:40 BUN 33 mg/dL (7-17) H 02/07/21 16:40 Creatinine 1.5 mg/dL (0.6-1.2) H 02/07/21 16:40 Estimated GFR 40 ml/min 02/07/21 16:40 BUN/Creatinine Ratio 22 % 02/07/21 16:40 Glucose 303 mg/dL (65-100) H 02/07/21 16:40 POC Glucose 331 mg/dL (70-105) H 02/07/21 16:05 Ketones Quantitative Negative (Negative) 02/07/21 16:40 Calcium 9.0 mg/dL (8.4-10.2) 02/07/21 16:40 Total Bilirubin 0.60 mg/dL (0.1-1.2) 02/07/21 16:40 AST 31 units/L (5-40) 02/07/21 16:40 ALT 49 units/L (7-56) 02/07/21 16:40 Alkaline Phosphatase 89 units/L (35-129) 02/07/21 16:40 Total Protein 6.4 g/dL (6.3-8.2) 02/07/21 16:40 Albumin 3.7 g/dL (3.9-5) L 02/07/21 16:40 Albumin/Globulin Ratio 1.4 % 02/07/21 16:40 Urine Color Yellow (Yellow) 02/07/21 17:08 Urine Turbidity Slightly-cloudy (Clear) 02/07/21 17:08 Urine pH 6.0 (5.0-7.0) 02/07/21 17:08 Ur Specific [place] 1.011 (1.003-1.030) 02/07/21 17:08 Urine Protein <15 mg/dl mg/dL (Negative) 02/07/21 17:08 Urine Glucose (UA) >=500 mg/dL (Negative) 02/07/21 17:08 Urine Ketones Neg mg/dL (Negative) 02/07/21 17:08 Urine Blood Neg (Negative) 02/07/21 17:08 Urine Nitrite Neg (Negative) 02/07/21 17:08 Urine Bilirubin Neg (Negative) 02/07/21 17:08 Urine Urobilinogen < 2.0 mg/dL (<2.0) 02/07/21 17:08 Ur Leukocyte Esterase Tr (Negative) 02/07/21 17:08 Urine WBC (Auto) 53.0 /HPF (0.0-6.0) H 02/07/21 17:08 Urine RBC (Auto) 2.0 /HPF (0.0-6.0) 02/07/21 17:08 U Epithel Cells (Auto) 1.0 /HPF (0-13.0) 02/07/21 17:08 Urine Bacteria (Auto) 1+ /HPF (Negative) 02/07/21 17:08 Urine Mucus Few /HPF 02/07/21 17:08 Urine Yeast (Budding) Few /HPF 02/07/21 17:08 Assessment and Plan Advance Directives: Yes (Full code) VTE prophylaxis?: Chemical Plan of care discussed with patient/family: Yes - Patient Problems (1) GENE (acute kidney injury) Current Visit: Yes Status: Acute Plan to address problem: IV fluids for now Vasomotor nephropathy (2) Uncontrolled diabetes mellitus Current Visit: Yes Status: Acute Qualifiers: Diabetes mellitus type: type 2 Plan to address problem: Optimize her medications Patient was told to take insulin about 6 months ago but refused insulin Patient was initiated on Novolin 70/30 20 units twice a day Diabetic education and diet education Check A1c (3) UTI (urinary tract infection) Current Visit: Yes Status: Acute Qualifiers: Urinary tract infection type: acute cystitis Plan to address problem: IV Rocephin every 24 hours pending urine cultures (4) Hypertension Current Visit: No Status: Acute Plan to address problem: Continue antihypertensives and adjust medications as necessary (5) CAD (coronary artery disease) Current Visit: Yes Status: Chronic Qualifiers: Coronary Disease-Associated Artery/Lesion type: [place] artery [place] vs. transplanted heart: [place] heart Plan to address problem: On isosorbide and statins (6) DVT prophylaxis Current Visit: Yes Status: Acute Plan to address problem: On anticoagulation GI prophylaxis
[2021-02-07] MEDS: INSULIN NPH/REGULAR 70/30 INJ SUB-Q SCH (21:34)
[2021-02-08] MEDS: hydrALAZINE 25 MG TAB PO SCH ×2 (00:40→05:26)
[2021-02-08] MEDS: HEPARIN 5,000 UNIT/1 ML VIAL SUB-Q SCH ×2 (00:41→09:46)
[2021-02-08] MEDS: CITALOPRAM 20 MG TAB PO SCH ×2 (08:21→09:48)
[2021-02-08] MEDS: ASPIRIN 81 MG TAB CHEW PO SCH ×2 (08:21→09:46)
[2021-02-08] MEDS: LOSARTAN 25 MG TAB PO SCH ×2 (08:21→09:46)
[2021-02-08] MEDS: SPIRONOLACTONE 25 MG TAB PO SCH ×2 (08:21→09:46)
[2021-02-08] MEDS: FUROSEMIDE 40 MG TAB PO SCH ×2 (08:24→09:46)
[2021-02-08 08:46] LABS: Basophils % (Auto) 0.2 % (0.0-1.8); Eosinophils # (Auto) 0.2 K/mm3 (0.0-0.4); Eosinophils % (Auto) 2.6 % (0.0-4.3); Hematocrit 36.5 % (30.3-42.9); Hemoglobin 11.6 gm/dl (10.1-14.3); Lymphocytes # (Auto) 2.7 K/mm3 (1.2-5.4); Lymphocytes % (Auto) 38.8 % (13.4-35.0); Mean Corpuscular HGB Conc 32 % (30-34); Mean Corpuscular Volume 97 fl (79-97); Monocytes # (Auto) 0.5 K/mm3 (0.0-0.8); Monocytes % (Auto) 7.4 % (0.0-7.3); Platelet Count 199 K/mm3 (140-440); Red Blood Count 3.76 M/mm3 (3.65-5.03); Red Cell Distribution Width 13.5 % (13.2-15.2)
[2021-02-08 09:11] LABS: Albumin 3.3 g/dL (3.9-5); Calcium 8.8 mg/dL (8.4-10.2)
[2021-02-08] MEDS ORDERED: METOPROLOL SUCCINATE XL 50 MG TAB PO SCH (10:00)
[2021-02-08] MEDS ORDERED: METOCLOPRAMIDE 10 MG/2 ML INJ IV PRN (10:00)
[2021-02-08] MEDS: INSULIN NPH/REGULAR 70/30 INJ SUB-Q SCH (10:39)
[2021-02-08 12:33] VITALS: BP 106/71
--- NOTE | 2021-02-08 16:48 | Discharge Summary ---
Providers - Providers Date of Admission: 02/07/21 20:27 Date of discharge: 02/08/21 Attending physician: HIRAM MANE 02/07/21 21:06 Consult to Dietitian/Nutrition [CONS] Routine Physician Instructions: Counseling about diet Reason For Exam: Uncontrolled diabetes Reason for Consult: Pt needs oral supplement Primary care physician: HIRAM MANE Hospitalization Condition: Fair Hospital course: This is an 85-year-old female presents to the emergency department from the office of her PCP, Dr. Mane, with complaint of hyperglycemia. The patient has a history of [id number] diabetes for which she is on 2 mg of glimepiride and has been compliant with her medication. She saw the nurse practitioner for a routine checkup and was found to have a blood sugar of about 480. I A1C is 11.3 Patient feels much better Diabetes teaching was done Assessment and Plan Advance Directives: Yes (Full code) VTE prophylaxis?: Chemical Plan of care discussed with patient/family: Yes - Patient Problems (1) GENE (acute kidney injury) Current Visit: Yes Status: Acute Plan to address problem: Improved Vasomotor nephropathy (2) Uncontrolled diabetes mellitus Current Visit: Yes Status: Acute Qualifiers: Diabetes mellitus type: type 2 Plan to address problem: Optimize her medications Patient was told to take insulin about 6 months ago but refused insulin Patient was initiated on Novolin 70/30 20 units twice a day Diabetic education and diet education Check V8g---47.3 D/c on Novolin mix 70/30 12 units BID Sq. Teaching was done (3) UTI (urinary tract infection) Current Visit: Yes Status: Acute Qualifiers: Urinary tract infection type: acute cystitis Plan to address problem: IV Rocephin every 24 hours pending urine cultures D/c on Macrobid (4) Hypertension Current Visit: No Status: Acute Plan to address problem: Continue antihypertensives and adjust medications as necessary (5) CAD (coronary artery disease) Current Visit: Yes Status: Chronic Qualifiers: Coronary Disease-Associated Artery/Lesion type: [place] artery [place] vs. transplanted heart: [place] heart Plan to address problem: On isosorbide and statins (6) DVT prophylaxis Current Visit: Yes Status: Acute Plan to address problem: On anticoagulation GI prophylaxis Disposition: 01 HOME / SELF CARE / HOMELESS Final Discharge Diagnosis (Prints w/discharge instructions): Diabetes teaching GENE. Uncontrolled diabetes. Hypertension. Coronary artery disease. GERD Time spent for discharge: 35 minutes - Discharge Diagnoses (1) GENE (acute kidney injury) Status: Acute (2) Uncontrolled diabetes mellitus Status: Acute Qualifiers: Diabetes mellitus type: type 2 (3) UTI (urinary tract infection) Status: Acute Qualifiers: Urinary tract infection type: acute cystitis (4) Hypertension Status: Acute (5) CAD (coronary artery disease) Status: Chronic Qualifiers: Coronary Disease-Associated Artery/Lesion type: [place] artery [place] vs. transplanted heart: [place] heart (6) DVT prophylaxis Status: Acute Core Measure Documentation - Palliative Care Palliative Care/ Comfort Measures: Not Applicable - Core Measures Any of the following diagnoses?: none Exam - Constitutional Vitals: Temp Pulse Resp BP Pulse Ox 99.2 F 79 19 106/71 99 02/08/21 12:33 02/08/21 12:33 02/08/21 12:33 02/08/21 12:33 02/08/21 12:33 General appearance: Present: no acute distress, well-nourished - EENT Eyes: Present: PERRL ENT: hearing intact, clear oral mucosa - Neck Neck: Present: supple, normal ROM - Respiratory Respiratory effort: normal Respiratory: bilateral: CTA - Cardiovascular Heart rate: 78 Rhythm: regular Heart Sounds: Present: S1 & S2. Absent: rub, click - Extremities Extremities: pulses symmetrical, No edema Peripheral Pulses: within normal limits - Abdominal General gastrointestinal: Present: soft, non-tender, non-distended, normal bowel sounds Female genitourinary: Present: normal - Integumentary Integumentary: Present: clear, warm, dry - Musculoskeletal Musculoskeletal: gait normal, strength equal bilaterally - Psychiatric Psychiatric: appropriate mood/affect, intact judgment & insight - Neurologic Neurologic: CNII-XII intact, moves all extremities Plan Activity: no restrictions Diet: diabetic Follow up with: HIRAM MANE MD [Primary Care Provider] - 7 Days
[2021-02-08] MEDS ORDERED: cefTRIAXone/NS 1 GM/50 ML 1 GM/50 ML BAG IV SCH (22:00)
== END 2021-02-08 17:47 | disposition home or self-care (01) ==
LOC: ED 15:55 → 3A 20:27
PROVIDERS: ADMIT Internal Medicine; ATTEND Internal Medicine
DX: N17.9 Acute kidney failure, unspecified (principal); E11.65 Type 2 diabetes mellitus with hyperglycemia; I11.0 Hypertensive heart disease with heart failure; I50.9 Heart failure, unspecified; I25.10 Atherosclerotic heart disease of native coronary artery without angina pectoris; N39.0 Urinary tract infection, site not specified; E78.5 Hyperlipidemia, unspecified; Z86.73 Personal history of transient ischemic attack (TIA), and cerebral infarction without residual deficits; Z95.1 Presence of aortocoronary bypass graft; Z90.49 Acquired absence of other specified parts of digestive tract; Z79.82 Long term (current) use of aspirin; Z79.4 Long term (current) use of insulin
CPT/HCPCS: 36415; 80053; 81001; 82010; 82805; 82962; 83036; 85025; 87076; 87086; 87186; 96361; 96365; 96372; 96375; 99284; G0378; J0696; J1644; J7030; J7040; Q0162; Q0177; Q9967; J1815